=== PATIENT | male | born 1930 | race Caucasian/White ===

== ENCOUNTER 2016-06-23 07:38 | Inpatient (IN) | payer MEDICARE, OTHER ==
[2016-06-23] MEDS ORDERED: IBUPROFEN 800 MG TAB PO STA (08:00)
[2016-06-23] MEDS ORDERED: SODIUM CHLORIDE 0.9% 1,000 ML IV STA (08:00)
[2016-06-23] MEDS ORDERED: SODIUM CHLORIDE 0.9% 500 ML IV STA (08:00)
[2016-06-23] MEDS ORDERED: ACETAMINOPHEN TAB 500 MG TAB PO STA (08:00)
[2016-06-23] MEDS ORDERED: IPRATROPIUM 0.5 MG/2.5 ML NEBU INHALATION STA (08:03)
[2016-06-23] MEDS ORDERED: ALBUTEROL NEBULIZED 2.5 MG/3 ML INHALATION STA (08:03)
--- NOTE | 2016-06-23 08:04 | ED ---
General Adult HPI - General Chief complaint: Fever Stated complaint: SHAKING, VOMITING, COLD Time Seen by Provider: 06/23/16 07:47 Source: patient, family, RN notes reviewed, old records reviewed Mode of arrival: wheelchair Limitations: no limitations - History of Present Illness Initial comments: This is a 86-year-old male ER for evaluation. Patient currently with cough congestion fever. Patient does have significant medical history, history of lung cancer history of lung surgery. The burn shortness of breath started this morning her progressively worsened this morning. Patient hypoxic on initial evaluation. Her shortness of breath. Patient has a recent increased cough and congestion, mild pain, chest pain. No travel history, no sick contacts, no nausea vomiting or diarrhea. - Related Data Home Medications Medication Instructions Recorded Confirmed Omeprazole [PriLOSEC] 20 mg PO AC-BID 11/21/13 06/23/16 glipiZIDE [Glucotrol] 2.5 mg PO TID 11/21/13 06/23/16 Aspirin 81 mg PO DAILY 06/23/16 06/23/16 Budesonide [Pulmicort] 0.5 mg INHALATION RT-BID 06/23/16 06/23/16 Ferrous Sulfate [Feosol] 325 mg PO DAILY 06/23/16 06/23/16 Ipratropium [place] [Atrovent Hfa] 2 puff INHALATION RT-TID 06/23/16 06/23/16 Mirtazapine [Remeron] 7.5 mg PO HS 06/23/16 06/23/16 Multivit-Min/FA/Lycopen/Lutein 1 tab PO DAILY 06/23/16 06/23/16 [Centrum Silver Men Tablet] Saxagliptin HCl [Onglyza] 5 mg PO DAILY 06/23/16 06/23/16 metFORMIN HCL 1,000 mg PO BID 06/23/16 06/23/16 Allergies Allergy/AdvReac Type Severity Reaction Status Date / Time No Known Allergies Allergy Verified 06/23/16 08:26 Review of Systems ROS Statement: Those systems with pertinent positive or pertinent negative responses have been documented in the HPI. ROS Other: All systems not noted in ROS Statement are negative. Past Medical History Past Medical History: Asthma, Cancer, CVA/TIA, Diabetes Mellitus, GERD/Reflux, Hyperlipidemia Additional Past Medical History / Comment(s): lung cancer, hiatal hernia History of Any Multi-Drug Resistant Organisms: None Reported Past Surgical History: Tonsillectomy Additional Past Surgical History / Comment(s): 2/3 left lung removed 2010, hemmoroids; right shoulder surgery Past Anesthesia/Blood Transfusion Reactions: No Reported Reaction Past Psychological History: No Psychological Hx Reported Smoking Status: Former smoker Past Alcohol Use History: Occasional Past Drug Use History: None Reported General Exam Limitations: no limitations General appearance: alert, anxious, in distress, cachectic Head exam: Present: atraumatic, normocephalic, normal inspection Eye exam: Present: normal appearance, PERRL, EOMI. Absent: scleral icterus, conjunctival injection, periorbital swelling ENT exam: Present: normal exam, mucous membranes moist Neck exam: Present: normal inspection. Absent: tenderness, meningismus, lymphadenopathy Respiratory exam: Present: normal lung sounds bilaterally, respiratory distress , wheezes, accessory muscle use, decreased breath sounds, prolonged expiratory. Absent: rales, rhonchi, stridor Cardiovascular Exam: Present: normal rhythm, tachycardia, normal heart sounds. Absent: systolic murmur, diastolic murmur, rubs, gallop, clicks GI/Abdominal exam: Present: soft, normal bowel sounds. Absent: distended, tenderness, guarding, rebound, rigid Extremities exam: Present: normal inspection, full ROM, normal capillary refill. Absent: tenderness, pedal edema, joint swelling, calf tenderness Back exam: Present: normal inspection Neurological exam: Present: alert, oriented X3, CN II-XII intact Psychiatric exam: Present: normal affect, normal mood Skin exam: Present: warm, dry, intact, normal color. Absent: rash Course Vital Signs 06/23/16 06/23/16 06/23/16 07:41 08:15 08:31 Temperature 102.5 F H Pulse Rate 117 H 108 H 115 H Respiratory 16 Rate Blood Pressure 199/136 O2 Sat by Pulse 85 L Oximetry 06/23/16 09:16 Temperature Pulse Rate 118 H Respiratory Rate Blood Pressure O2 Sat by Pulse Oximetry - Reevaluation(s) Reevaluation #1: 06/23/16 10:41 Patient's oxygenation is mildly improved with a little oxygen prolonged breathing treatment EKG Findings - EKG Comments: EKG Findings:: EKG shows sinus tachycardia rate 112, IN 162, QRS 80, QTC 458 Medical Decision Making - Medical Decision Making A 5 mg for evaluation of fever. Weakness. Shows of breath, hypoxia COPD lung CA, patient is breathing treatments, given his COPD hypoxia, supplemental oxygen IV antibiotics for pneumonia. - Lab Data Result diagrams: 06/23/16 08:45 06/23/16 08:45 Lab Results 06/23/16 06/23/16 06/23/16 Range/Units 08:40 08:45 08:45 WBC 11.4 H (3.8-10.6) k/uL RBC 4.76 (4.30-5.90) m/uL Hgb 14.3 (13.0-17.5) gm/dL Hct 43.4 (39.0-53.0) % MCV 91.3 (80.0-100.0) fL MCH 30.1 (25.0-35.0) pg MCHC 32.9 (31.0-37.0) g/dL RDW 14.8 (11.5-15.5) % Plt Count 124 L (150-450) k/uL Neutrophils % 90 % Lymphocytes % 5 % Monocytes % 3 % Eosinophils % 1 % Basophils % 0 % Neutrophils # 10.3 H (1.3-7.7) k/uL Lymphocytes # 0.6 L (1.0-4.8) k/uL Monocytes # 0.3 (0-1.0) k/uL Eosinophils # 0.1 (0-0.7) k/uL Basophils # 0.0 (0-0.2) k/uL PT (9.0-12.0) sec INR (<1.1) APTT (22.0-30.0) sec Sodium (137-145) mmol/L Potassium (3.5-5.1) mmol/L Chloride (98-107) mmol/L Carbon Dioxide (22-30) mmol/L Anion Gap mmol/L BUN (9-20) mg/dL Creatinine (0.66-1.25) mg/dL Est GFR (MDRD) Af Amer (>60 ml/min/1.73 sqM) Est GFR (MDRD) Non-Af (>60 ml/min/1.73 sqM) Glucose (74-99) mg/dL Calcium (8.4-10.2) mg/dL Phosphorus (2.5-4.5) mg/dL Magnesium (1.6-2.3) mg/dL Total Bilirubin (0.2-1.3) mg/dL AST (17-59) U/L ALT (21-72) U/L Alkaline Phosphatase (38-126) U/L Total Creatine Kinase 77 (55-170) U/L CK-MB (CK-2) 1.6 (0.0-2.4) ng/mL CK-MB (CK-2) Rel Index 2.1 Troponin I <0.012 (0.000-0.034) ng/mL NT-Pro-B Natriuret Pep pg/mL Total Protein (6.3-8.2) g/dL Albumin (3.5-5.0) g/dL Urine Color Yellow Urine Appearance Clear (Clear) Urine pH 6.5 (5.0-8.0) Ur Specific [place] 1.011 (1.001-1.035) Urine Protein Negative (Negative) Urine Glucose (UA) 3+ H (Negative) Urine Ketones 1+ H (Negative) Urine Blood Negative (Negative) Urine Nitrite Negative (Negative) Urine Bilirubin Negative (Negative) Urine Urobilinogen <2.0 (<2.0) mg/dL Ur Leukocyte Esterase Negative (Negative) 06/23/16 06/23/16 06/23/16 Range/Units 08:45 08:45 09:42 WBC (3.8-10.6) k/uL RBC (4.30-5.90) m/uL Hgb (13.0-17.5) gm/dL Hct (39.0-53.0) % MCV (80.0-100.0) fL MCH (25.0-35.0) pg MCHC (31.0-37.0) g/dL RDW (11.5-15.5) % Plt Count (150-450) k/uL Neutrophils % % Lymphocytes % % Monocytes % % Eosinophils % % Basophils % % Neutrophils # (1.3-7.7) k/uL Lymphocytes # (1.0-4.8) k/uL Monocytes # (0-1.0) k/uL Eosinophils # (0-0.7) k/uL Basophils # (0-0.2) k/uL PT 10.8 (9.0-12.0) sec INR 1.1 (<1.1) APTT 21.8 L (22.0-30.0) sec Sodium 141 (137-145) mmol/L Potassium 4.6 (3.5-5.1) mmol/L Chloride 104 (98-107) mmol/L Carbon Dioxide 24 (22-30) mmol/L Anion Gap 13 mmol/L BUN 27 H (9-20) mg/dL Creatinine 0.82 (0.66-1.25) mg/dL Est GFR (MDRD) Af Amer >60 (>60 ml/min/1.73 sqM) Est GFR (MDRD) Non-Af >60 (>60 ml/min/1.73 sqM) Glucose 240 H (74-99) mg/dL Calcium 9.5 (8.4-10.2) mg/dL Phosphorus 3.4 (2.5-4.5) mg/dL Magnesium 1.4 L (1.6-2.3) mg/dL Total Bilirubin 0.8 (0.2-1.3) mg/dL AST 22 (17-59) U/L ALT 37 (21-72) U/L Alkaline Phosphatase 86 (38-126) U/L Total Creatine Kinase (55-170) U/L CK-MB (CK-2) (0.0-2.4) ng/mL CK-MB (CK-2) Rel Index Troponin I (0.000-0.034) ng/mL NT-Pro-B Natriuret Pep 375 pg/mL Total Protein 7.7 (6.3-8.2) g/dL Albumin 4.3 (3.5-5.0) g/dL Urine Color Urine Appearance (Clear) Urine pH (5.0-8.0) Ur Specific [place] (1.001-1.035) Urine Protein (Negative) Urine Glucose (UA) (Negative) Urine Ketones (Negative) Urine Blood (Negative) Urine Nitrite (Negative) Urine Bilirubin (Negative) Urine Urobilinogen (<2.0) mg/dL Ur Leukocyte Esterase (Negative) - Radiology Data Radiology results: report reviewed (Chest x-ray positive for pneumonia), image reviewed Critical Care Time Critical Care Time: Yes Total Critical Care Time: 31 Disposition Clinical Impression: Nosocomial pneumonia, Fever, Hypoxia, COPD exacerbation Disposition: ADMITTED IP TO THIS HOSP Condition: Fair Referrals: Jasmin Natarajan MD [Primary Care Provider] - 1-2 days
[2016-06-23] MEDS ORDERED: KETAMINE 10 MG/ML 20 ML VIAL IV ONE (09:04)
[2016-06-23 09:11] LABS: Appearance,Urine Clear (Clear); Bilirubin,Urine Negative (Negative); Glucose,Urine (UA) 3+ (Negative); Ketones,Urine 1+ (Negative); Leukocyte Esterase,Urine Negative (Negative); Nitrite,Urine Negative (Negative); PH, Urine 6.5 (5.0-8.0); Protein,Urine Negative (Negative); Specific Gravity,Urine 1.011 (1.001-1.035); UA Billing (MACRO vs. MICRO) CHEM; Urobilinogen,Urine <2.0 mg/dL (<2.0)
[2016-06-23 09:14] LABS: Basophils % (A) 0 %; CH 29.1; CHCM 32.1; Eosinophils # (A) 0.1 k/uL (0-0.7); Eosinophils % (A) 1 %; HCT 43.4 % (39.0-53.0); HDW 2.47; HGB 14.3 gm/dL (13.0-17.5); Luc # (Auto) 0.05; Luc % (Auto) 0; Lymphocytes # (A) 0.6 k/uL (1.0-4.8); Lymphocytes % (A) 5 %; MCH 30.1 pg (25.0-35.0); MCHC 32.9 g/dL (31.0-37.0); MCV 91.3 fL (80.0-100.0); Mean Platelet Volume 9.9; Monocytes # (A) 0.3 k/uL (0-1.0); Monocytes % (A) 3 %; Neutrophils # (A) 10.3 k/uL (1.3-7.7); Neutrophils % (A) 90 %; RBC 4.76 m/uL (4.30-5.90); RDW 14.8 % (11.5-15.5); WBC 11.4 k/uL (3.8-10.6); WBC (Perox) 12.11
[2016-06-23 09:23] LABS: ALT 37 U/L (21-72); AST 22 U/L (17-59); Alkaline Phosphatase 86 U/L (38-126); Anion Gap 13 mmol/L; Blood Urea Nitrogen 27 mg/dL (9-20); Calcium 9.5 mg/dL (8.4-10.2); Carbon Dioxide 24 mmol/L (22-30); Chloride 104 mmol/L (98-107); Glucose 240 mg/dL (74-99); Magnesium 1.4 mg/dL (1.6-2.3); Non-African American GFR(MDRD) >60 (>60 ml/min/1.73 sqM); Phosphorous 3.4 mg/dL (2.5-4.5); Potassium 4.6 mmol/L (3.5-5.1); Sodium 141 mmol/L (137-145); Total Bilirubin 0.8 mg/dL (0.2-1.3); Total Protein 7.7 g/dL (6.3-8.2)
[2016-06-23 09:47] LABS: Creatine Kinase 77 U/L (55-170)
--- NOTE | 2016-06-23 09:56 | XR ---
EXAMINATION TYPE: XR chest 2V DATE OF EXAM: 06/23/2016 9:32 AM COMPARISON: 07/30/2015 TECHNIQUE: PA and lateral views submitted. HISTORY: Pain FINDINGS: Large hiatal or diaphragmatic hernia noted with stable right basilar infiltrate and small effusion. T here is more focal right perihilar infiltrate. Biapical pleural thickening. No overt failure. Postsur gical changes seen. IMPRESSION: 1. Right-sided areas of infiltrate and small effusion with a large diaphragmatic or hiatal hernia. 2. There is soft tissue fullness in the aortopulmonary window. Area of adenopathy not excluded. Corre late with CT as warranted.
[2016-06-23 10:00] LABS: Creatine Kinase MB 1.6 ng/mL (0.0-2.4); Troponin I <0.012 ng/mL (0.000-0.034)
[2016-06-23 10:10] LABS: INR 1.1 (<1.1); Prothrombin Time 10.8 sec (9.0-12.0)
[2016-06-23 10:32] LABS: Partial Thromboplastin Time 21.8 sec (22.0-30.0)
[2016-06-23] MEDS ORDERED: PNEUMONIA PROTOCOL UTILIZED 1 EACH MISC PO PRN (10:36)
[2016-06-23] MEDS ORDERED: PIPERACILLIN-TAZOBACTAM 3.375 GM in DEXTROSE/WATER 1 50ML.BAG IVPB STA (10:36)
[2016-06-23] MEDS ORDERED: LEVOFLOXACIN 750MG-D5W PMX 750 MG in DEXTROSE/WATER 1 150ML.BAG IVPB STA (10:36)
[2016-06-23 11:36] VITALS: BMI 22.8
[2016-06-23 12:33] LABS: Glucose,Whole Blood 290 mg/dL (75-99)
--- NOTE | 2016-06-23 12:45 | P.HPIM ---
History of Present Illness H&P Date: 06/23/16 Chief Complaint: Right lower lobe pneumonia with pleural effusion. This is an 86-year-old male one of my patient with a previous medical history significant for diabetes mellitus type 2, hyperkalemia, moderate COPD, lung cancer status post partial lobectomy, GERD, patient woke up the today complaining of feeling sick with fever and chills he was feeling fine yesterday , he was feeling chills in the morning and he asked his taken to the ER so she drove him over and the patient had a chest x-ray that showed a right lower lobe infiltrate with right pleural effusion and the patient was admitted to the hospital for right lower lobe pneumonia was started on IV antibiotic and he is to be seen by pulmonary Dr. Turcios. Review of Systems Constitutional: Reports anorexia, Reports fatigue, Reports fever, Reports malaise, Reports sweats, Reports weakness, Reports weight loss, Denies chronic headaches, Denies chronic pain Eyes: denies blurred vision, denies bulging eye, denies decreased vision Ears: bilateral: decreased hearing Ears, nose, mouth and throat: Denies dysphagia, Denies neck lump, Denies sore throat, Denies vertigo Cardiovascular: Denies chest pain, Denies dyspnea on exertion, Denies high blood pressure, Denies rapid heart beat, Denies shortness of breath, Denies syncope Respiratory: Reports cough, Reports cough with sputum, Reports dyspnea, Denies congestion, Denies home oxygen, Denies sleep apnea, Denies snoring, Denies wheezing Gastrointestinal: Denies abdominal pain, Denies bloating, Denies BRBPR, Denies diarrhea, Denies heartburn, Denies hematemesis, Denies melena, Denies nausea, Denies vomiting Genitourinary: Reports nocturia, Denies dysuria, Denies polyuria Musculoskeletal: Reports atrophy, Reports gait dysfunction, Reports low back pain Musculoskeletal: left: ankle pain, ankle stiffness, absent: ankle swelling, elbow pain, elbow stiffness, elbow swelling, foot pain, foot stiffness, foot swelling, hand pain, hand stiffness, hand swelling, hip pain, hip stiffness, hip swelling, knee pain, knee stiffness, knee swelling, shoulder pain, shoulder stiffness, shoulder swelling, wrist pain, wrist stiffness, wrist swelling Integumentary: Denies pruritus, Denies rash Neurological: Denies numbness, Denies weakness Psychiatric: Denies anxiety, Denies depression Endocrine: Denies fatigue, Denies weight change Past Medical History Past Medical History: Asthma, Cancer, COPD, CVA/TIA, Diabetes Mellitus, GERD/ Reflux, Hyperlipidemia, Osteoarthritis (OA) Additional Past Medical History / Comment(s): 2009 L lung cancer with sx, NIDDM type II, TIA in 2012, iron deficiency anemia, athritis bilateral hands/feet, hiatal hernia History of Any Multi-Drug Resistant Organisms: None Reported Past Surgical History: Orthopedic Surgery, Tonsillectomy Additional Past Surgical History / Comment(s): 2/3 left lobectomy 2009-post op incisional infection and had debridements, colonoscopy/benign polypectomy, hemmoroidectomy, right shoulder arthrotomy. Past Anesthesia/Blood Transfusion Reactions: No Reported Reaction Past Psychological History: Depression Additional Psychological History / Comment(s): Pt resides with his spouse. He uses a cane at times. He drives short distances. He is independent. Smoking Status: Former smoker (Patient used to smoke about 2-3 pack every day he smoked for about 30 years patient quit in 05/13/1979.) Past Alcohol Use History: Occasional Additional Past Alcohol Use History / Comment(s): Pt started smoking in 1949 and quit in 1979. Past Drug Use History: None Reported - Past Family History Father Family Medical History: No Reported History (Father at age of 75 from alcohol is in.) Additional Family Medical History / Comment(s): Father at the age of 74yrs. Mother Family Medical History: CVA/TIA (Mother at age of 80 from stroke.) Additional Family Medical History / Comment(s): Mother was healthy and at the age of 80yrs. Sister(s) Family Medical History: Coronary Artery Disease (CAD), Myocardial Infarction ([place] ) (Patient had 2 sisters one of them from CABG the other one from CAD. ) Brother(s) Family Medical History: Neurologic Disorder (Patient has one brother multiple sclerosis.) Daughter(s) Family Medical History: No Reported History (Patient has 3 daughters no major medical problems) Son(s) Family Medical History: Cancer (Patient has one son with prostate cancer per) Medications and Allergies Home Medications Medication Instructions Recorded Confirmed Type Omeprazole [PriLOSEC] 20 mg PO AC-BID 11/21/13 06/23/16 History glipiZIDE [Glucotrol] 2.5 mg PO TID 11/21/13 06/23/16 History Aspirin 81 mg PO DAILY 06/23/16 06/23/16 History Budesonide [Pulmicort] 0.5 mg INHALATION RT-BID 06/23/16 06/23/16 History Ferrous Sulfate [Feosol] 325 mg PO DAILY 06/23/16 06/23/16 History Ipratropium [place] [Atrovent Hfa] 2 puff INHALATION RT-TID 06/23/16 06/23/16 History Mirtazapine [Remeron] 7.5 mg PO HS 06/23/16 06/23/16 History Multivit-Min/FA/Lycopen/Lutein 1 tab PO DAILY 06/23/16 06/23/16 History [Centrum Silver Men Tablet] Saxagliptin HCl [Onglyza] 5 mg PO DAILY 06/23/16 06/23/16 History metFORMIN HCL 1,000 mg PO BID 06/23/16 06/23/16 History Allergies Allergy/AdvReac Type Severity Reaction Status Date / Time No Known Allergies Allergy Verified 06/23/16 08:26 Physical Exam Vitals: Vital Signs Temp Pulse Resp BP Pulse Ox 06/23/16 10:41 101 F H 65 16 144/60 92 L Intake and Output 06/22/16 06/23/16 06/23/16 22:59 06:59 14:59 Other: Voiding Method Toilet Urinal Weight 70.307 kg Patient Weight 06/24/16 06:59 Weight 70.307 kg - Constitutional General appearance: mild distress - EENT Eyes: anicteric sclerae, EOMI, PERRLA, no ptosis, no scleral icterus, normal appearance ENT: hard of hearing, NA/AT, normal oropharynx, no thrush Ears: bilateral: normal - Neck Neck: no lymphadenopathy, normal ROM, no rigidity, no stridor, no thyromegaly Carotids: bilateral: upstroke delayed Thyroid: bilateral: normal size - Respiratory Respiratory: right: dullness, rhonchi, bilateral: prolonged expiration, negative : rales, wheezing - Cardiovascular Rhythm: regular Heart sounds: normal: S1, S2 Abnormal Heart Sounds: systolic murmur, no diastolic murmur, no rub, no S3 Gallop, no S4 Gallop, no click - Gastrointestinal General gastrointestinal: normal bowel sounds, soft, no splenomegaly, no tenderness, no umbilical hernia, no ventral hernia - Integumentary Integumentary: normal, normal turgor - Neurologic Neurologic: CNII-XII intact - Musculoskeletal Musculoskeletal: gait normal, generalized weakness - Psychiatric Psychiatric: A&O x's 3, appropriate affect, intact judgment & insight Results CBC & Chem 7: 06/23/16 08:45 06/23/16 08:45 Labs: Abnormal Lab Results - Last 24 Hours (Table) 06/23/16 Range/Units 12:28 POC Glucose (mg/dL) 290 H (75-99) mg/dL Thrombosis Risk Factor Assmnt - DVT/VTE Prophylaxis DVT/VTE Prophylaxis: Pharmacologic Prophylaxis ordered, Mechanical Prophylaxis ordered - Choose All That Apply Any of the Below Risk Factors Present?: Yes Each Factor Represents 1 point: Abnormal pulmonary function (COPD) Other Risk Factors: Yes Each Risk Factor Represents 3 Points: Age 75 years or older Thrombosis Risk Factor Assessment Total Risk Factor Score: 4 Thrombosis Risk Factor Assessment Level: Moderate Risk Assessment and Plan Plan: Assessment and plan: 1. Right lower lobe pneumonia with right pleural effusion. Start the patient on IV antibiotic in the form of Levaquin 500 mg IV piggyback every 24 hours, sputum culture, blood culture, the last treatment DuoNeb 3 mg nebulization 4 times every day, patient may need to go for computed tomography scan of the chest with contrast for further evaluation after treating the pneumonia for next few days. Pulmonary consultation with Dr. Turcios. 2. Moderate to COPD. Continue treatment as in paragraph #1. 3. Diabetes mellitus type 2. Continue patient on Glucotrol 2.5 mg orally 3 times every day, continue metformin 1000 g orally twice every day, continue Onglyza 5 mg orally once every day. Place the patient on the sliding scale insulin, BGM before each meal and at bedtime. 4. History of lung cancer status post partial resection. She may need to go for a day did computed tomography scan of the chest with contrast. 5. GERD. Continue patient on the Prilosec 20 mg orally twice every day. 6. Hyperlipidemia. Continue low-cholesterol diet. 7. Diaphragmatic hernia. Stable at this point in time. 8. Enlarged prostate. Stable. 9. DVT prophylaxis. Lovenox 40 mg subcutaneously every 24 hours. 10. GI prophylaxis. Continue omeprazole 20 mg orally twice every day. 11. Patient is full code discussed with the patient. 12. Admit to inpatient. Estimate a length of stay 2 midnights.
[2016-06-23] MEDS ORDERED: NON-FORMULARY DRUG (Ipratropium Bromide [Atrovent Hfa] 2 PUFF) INHALATION SCH (13:00)
[2016-06-23] MEDS: SODIUM CHLORIDE 0.9% 1,000 ML IV SCH ×2 (13:30→21:08)
[2016-06-23] MEDS: ASPIRIN 81 MG CHEW PO SCH (13:31)
[2016-06-23] MEDS: LINAGLIPTIN 5 MG TABLET PO SCH (13:31)
[2016-06-23] MEDS: FERROUS SULFATE 325 MG TAB PO SCH (13:31)
[2016-06-23] MEDS: INSULIN LISPRO (humaLOG) 300 UNIT/3 ML VIAL SQ SCH ×3 (13:32→21:20)
[2016-06-23] MEDS: MAGNESIUM SULFATE-D5W PMX 1 GM in DEXTROSE/WATER 1 100ML.BAG IVPB SCH ×2 (13:33→15:13)
[2016-06-23 15:09] LABS: Hemoglobin A1C 7.1 % (4.2-6.1)
[2016-06-23] MEDS: IPRATROPIUM-ALBUTEROL 3 ML NEB INHALATION SCH ×3 (16:01→19:40)
[2016-06-23 17:56] LABS: Glucose,Whole Blood 243 mg/dL (75-99)
--- NOTE | 2016-06-23 17:58 | P.CNPUL ---
History of Present Illness Consult date: 06/23/16 Reason for consult: pneumonia History of present illness: 86-year-old male patient, Hospital as for a suspected right lung pneumonia. I was consulted for this problem. The patient is known to me. He is known to have COPD. He is also known to have lung cancer with a previous left upper lobe resection many years back without evidence of any recurrence. He also has a large intrathoracic hiatal hernia. The patient woke up today and he was having Jeff's and chills and he was feeling sick and feverish. He is a congested cough without any significant sputum production. No pleurisy. No change in mental status. He came into the emergency department where a chest x- ray was done and showed a hiatal hernia in addition to the right lung pneumonia especially involving the right middle lobe and right lower lobe. The patient was started and accommodation of Zosyn and Levaquin. No reported aspiration although the patient is supporting reflux and at times is having difficulties in swallowing. He is diabetic. No travel history. No trauma. No hemoptysis. No pleurisy. No other constitutional symptoms or Weight Loss. Review of Systems No anorexia no fatigue. He reports fever and chills. He reports malaise. He reports sweating. He reports weakness. Denies having any headache. No vision changes. No chest pain. No nausea vomiting or diarrhea. No abdominal pain. No gait dysfunction. No back pain. 12 point review of system was done and the rest of the positive findings are almost above in history of present illness Past Medical History Past Medical History: Asthma, Cancer, COPD, CVA/TIA, Diabetes Mellitus, GERD/ Reflux, Hyperlipidemia, Osteoarthritis (OA) Additional Past Medical History / Comment(s): 2009 L lung cancer with sx, NIDDM type II, TIA in 2012, iron deficiency anemia, athritis bilateral hands/feet, hiatal hernia History of Any Multi-Drug Resistant Organisms: None Reported Past Surgical History: Orthopedic Surgery, Tonsillectomy Additional Past Surgical History / Comment(s): 2/3 left lobectomy 2009-post op incisional infection and had debridements, colonoscopy/benign polypectomy, hemmoroidectomy, right shoulder arthrotomy. Past Anesthesia/Blood Transfusion Reactions: No Reported Reaction Past Psychological History: Depression Additional Psychological History / Comment(s): Pt resides with his spouse. He uses a cane at times. He drives short distances. He is independent. Smoking Status: Former smoker (Patient used to smoke about 2-3 pack every day he smoked for about 30 years patient quit in 05/13/1979.) Past Alcohol Use History: Occasional Additional Past Alcohol Use History / Comment(s): Pt started smoking in 1949 and quit in 1979. Past Drug Use History: None Reported - Past Family History Father Family Medical History: No Reported History (Father at age of 75 from alcohol is in.) Additional Family Medical History / Comment(s): Father at the age of 74yrs. Mother Family Medical History: CVA/TIA (Mother at age of 80 from stroke.) Additional Family Medical History / Comment(s): Mother was healthy and at the age of 80yrs. Sister(s) Family Medical History: Coronary Artery Disease (CAD), Myocardial Infarction (RI ) (Patient had 2 sisters one of them from CABG the other one from CAD. ) Brother(s) Family Medical History: Neurologic Disorder (Patient has one brother multiple sclerosis.) Daughter(s) Family Medical History: No Reported History (Patient has 3 daughters no major medical problems) Son(s) Family Medical History: Cancer (Patient has one son with prostate cancer per) Medications and Allergies Home Medications Medication Instructions Recorded Confirmed Type Omeprazole [PriLOSEC] 20 mg PO AC-BID 11/21/13 06/23/16 History glipiZIDE [Glucotrol] 2.5 mg PO TID 11/21/13 06/23/16 History Aspirin 81 mg PO DAILY 06/23/16 06/23/16 History Budesonide [Pulmicort] 0.5 mg INHALATION RT-BID 06/23/16 06/23/16 History Ferrous Sulfate [Feosol] 325 mg PO DAILY 06/23/16 06/23/16 History Ipratropium Milligan [Atrovent Hfa] 2 puff INHALATION RT-TID 06/23/16 06/23/16 History Mirtazapine [Remeron] 7.5 mg PO HS 06/23/16 06/23/16 History Multivit-Min/FA/Lycopen/Lutein 1 tab PO DAILY 06/23/16 06/23/16 History [Centrum Silver Men Tablet] Saxagliptin HCl [Onglyza] 5 mg PO DAILY 06/23/16 06/23/16 History metFORMIN HCL 1,000 mg PO BID 06/23/16 06/23/16 History Allergies Allergy/AdvReac Type Severity Reaction Status Date / Time No Known Allergies Allergy Verified 06/23/16 08:26 Physical Exam Vitals: Vital Signs Temp Pulse Pulse Resp BP BP Pulse Ox 06/23/16 16:15 80 06/23/16 16:01 84 06/23/16 14:56 96.2 F L 99 18 110/57 96 06/23/16 10:41 101 F H 65 16 144/60 92 L Intake and Output 06/23/16 06/23/16 06/23/16 06:59 14:59 22:59 Other: Voiding Method Toilet Toilet Urinal Urinal Weight 70.307 kg Patient Weight 06/24/16 06:59 Weight 70.307 kg Head exam was generally normal. There was no scleral icterus or corneal arcus. Mucous membranes were moist.Neck was supple and without jugular venous distension, thyromegaly, or carotid bruits. Carotids were easily palpable bilaterally. There was no adenopathy. Lung sounds are diminished in the right lung base along with some limited crackles in the right basal area.Cardiac exam revealed the PMI to be normally situated and sized. The rhythm was regular and no extrasystoles were noted during several minutes of auscultation. The first and second heart sounds were normal and physiologic splitting of the second heart sound was noted. There were no murmurs, rubs, clicks, or gallops.Abdominal exam revealed normal bowel sounds. The abdomen was soft, non- tender, and without masses, organomegaly, or appreciable enlargement of the abdominal aorta.Examination of the extremities revealed easily palpable radial, femoral and pedal pulses. There was no cyanosis, clubbing or edema. Results - Laboratory Findings CBC and BMP: 06/23/16 08:45 06/23/16 08:45 PT/INR, D-dimer PT 10.8 sec (9.0-12.0) 06/23/16 09:42 INR 1.1 (<1.1) 06/23/16 09:42 Abnormal lab findings: Abnormal Labs 06/23/16 12:28 POC Glucose (mg/dL) 290 H - Diagnostic Findings Chest x-ray: image reviewed Assessment and Plan Plan: Assessment 1 Right lung pneumonia involving the right lower lobe and the right middle lobe. Rule out aspiration pneumonia. Currently on accommodation of Zosyn and Levaquin. The patient has a large intrathoracic hiatal hernia and at times is having difficulties with swallowing and reflux. As such was covered by a combination of Zosyn and Levaquin. Antibiotic coverage is appropriate at this point. 2 COPD 3 lung cancer with a previous left upper lobe resection 4 diabetes mellitus type 2 5 hyperlipidemia 6 BPH Plan Agree on Zosyn and Levaquin. Repeat chest x-ray with next 24-48 hours. Aspiration precautions. This will be also prudent to obtain a swallow evaluation to make sure the patient does not have an increased risk of aspiration. Follow-up the case along with the medical group.
[2016-06-23] MEDS: PANTOPRAZOLE 40 MG TABLET PO SCH (18:15)
[2016-06-23] MEDS: BUDESONIDE 0.5 MG/2 ML NEBU INHALATION SCH (19:40)
[2016-06-23] MEDS: PIPERACILLIN-TAZOBACTAM 3.375 GM in DEXTROSE/WATER 1 50ML.BAG IVPB SCH (21:19)
[2016-06-23] MEDS: MIRTAZAPINE 15 MG TAB PO SCH (21:21)
[2016-06-23] MEDS: metFORMIN 500 MG TAB PO SCH (21:21)
[2016-06-23 21:29] LABS: Glucose,Whole Blood 109 mg/dL (75-99)
[2016-06-24] MEDS: PIPERACILLIN-TAZOBACTAM 3.375 GM in DEXTROSE/WATER 1 50ML.BAG IVPB SCH ×3 (04:13→20:11)
[2016-06-24] MEDS: SODIUM CHLORIDE 0.9% 1,000 ML IV SCH ×2 (06:37→17:18)
[2016-06-24] MEDS: BUDESONIDE 0.5 MG/2 ML NEBU INHALATION SCH ×2 (07:39→19:05)
[2016-06-24] MEDS: IPRATROPIUM-ALBUTEROL 3 ML NEB INHALATION SCH ×4 (07:39→19:05)
[2016-06-24 07:45] LABS: Glucose,Whole Blood 131 mg/dL (75-99)
[2016-06-24] MEDS: INSULIN LISPRO (humaLOG) 300 UNIT/3 ML VIAL SQ SCH ×4 (08:30→21:49)
[2016-06-24] MEDS: ASPIRIN 81 MG CHEW PO SCH (08:30)
[2016-06-24] MEDS: PANTOPRAZOLE 40 MG TABLET PO SCH ×2 (08:31→17:18)
[2016-06-24] MEDS: ENOXAPARIN 40 MG/0.4 ML SYRINGE SQ SCH (08:31)
[2016-06-24] MEDS: metFORMIN 500 MG TAB PO SCH ×2 (08:32→21:48)
[2016-06-24] MEDS: LINAGLIPTIN 5 MG TABLET PO SCH (08:32)
[2016-06-24 08:54] LABS: CH 29.1; HCT 36.8 % (39.0-53.0); HDW 2.37; HGB 11.9 gm/dL (13.0-17.5); MCH 29.4 pg (25.0-35.0); MCHC 32.2 g/dL (31.0-37.0); MCV 91.4 fL (80.0-100.0); Mean Platelet Volume 9.6; RBC 4.03 m/uL (4.30-5.90); RDW 14.9 % (11.5-15.5); WBC 11.6 k/uL (3.8-10.6)
[2016-06-24 08:57] LABS: Anion Gap 8 mmol/L; Blood Urea Nitrogen 19 mg/dL (9-20); Calcium 8.9 mg/dL (8.4-10.2); Carbon Dioxide 28 mmol/L (22-30); Chloride 104 mmol/L (98-107); Glucose 146 mg/dL (74-99); Magnesium 1.8 mg/dL (1.6-2.3); Non-African American GFR(MDRD) >60 (>60 ml/min/1.73 sqM); Potassium 4.1 mmol/L (3.5-5.1); Sodium 140 mmol/L (137-145)
[2016-06-24] MEDS ORDERED: FAMOTIDINE 20 MG TAB PO SCH (09:00)
[2016-06-24] MEDS: LEVOFLOXACIN 750MG-D5W PMX 750 MG in DEXTROSE/WATER 1 150ML.BAG IVPB SCH (09:36)
--- NOTE | 2016-06-24 11:00 | XR ---
EXAMINATION TYPE: XR chest 2V DATE OF EXAM: 06/24/2016 10:55 AM COMPARISON: Chest x-ray from yesterday. HISTORY: Pneumonia per order. TECHNIQUE: Frontal and lateral views of the chest are obtained. FINDINGS: Large hiatal hernia is redemonstrated extending to right lung base. There is chronic parenc hymal change with right basilar atelectasis and/or infiltrate and small right pleural effusion all re demonstrated. Left lung remains clear. Punctate density left lateral lung could reflect foreign body or clip is stable. The cardiac silhouette size is within normal limits with atherosclerotic thoracic aorta. Surgical clips left hilar region are redemonstrated. The osseous structures are intact. IMPRESSION: Overall stable findings, large hiatal hernia with small right pleural effusion and right lower lung atelectasis and/or infiltrate all redemonstrated. No new infiltrate is seen.
[2016-06-24 11:44] LABS: Glucose,Whole Blood 152 mg/dL (75-99)
[2016-06-24] MEDS: FERROUS SULFATE 325 MG TAB PO SCH (12:40)
[2016-06-24] MEDS: MULTIVITAMINS, THERA 1 EACH TAB PO SCH (12:40)
--- NOTE | 2016-06-24 13:05 | P.PN ---
Subjective 86-year-old male patient, Hospital as for a suspected right lung pneumonia. I was consulted for this problem. The patient is known to me. He is known to have COPD. He is also known to have lung cancer with a previous left upper lobe resection many years back without evidence of any recurrence. He also has a large intrathoracic hiatal hernia. The patient woke up today and he was having chills and he was feeling sick and feverish. He is a congested cough without any significant sputum production. No pleurisy. No change in mental status. He came into the emergency department where a chest x-ray was done and showed a hiatal hernia in addition to the right lung pneumonia especially involving the right middle lobe and right lower lobe. The patient was started and accommodation of Zosyn and Levaquin. No reported aspiration although the patient is supporting reflux and at times is having difficulties in swallowing. He is diabetic. No travel history. No trauma. No hemoptysis. No pleurisy. No other constitutional symptoms or Weight Loss On the patient is breathing easier and is less short of breath. No reported chills. No fever. Cough and chest congestion is improved. No chest pain. No nausea or vomiting. No change in mental status. No other complaints otherwise for now. Maze hemodynamically stable and he is resting comfortably in bed. Objective - Vital Signs Vital signs: Vital Signs Temp 97.3 F L 06/24/16 07:00 Pulse 83 06/24/16 08:00 Resp 22 06/24/16 08:00 BP 132/77 06/24/16 07:00 Pulse Ox 97 06/24/16 07:40 Intake & Output 06/23/16 06/24/16 06/24/16 18:59 06:59 18:59 Intake Total 300 100 Output Total 450 Balance -150 100 Weight 70.307 kg 70.307 kg Intake: Oral 300 100 Output: Urine 450 Other: Voiding Method Toilet Toilet Urinal Urinal # Voids 2 - Exam Head exam was generally normal. There was no scleral icterus or corneal arcus. Mucous membranes were moist.Neck was supple and without jugular venous distension, thyromegaly, or carotid bruits. Carotids were easily palpable bilaterally. There was no adenopathy. Lung sounds are diminished in the right lung base along with some limited crackles in the right basal area.Cardiac exam revealed the PMI to be normally situated and sized. The rhythm was regular and no extrasystoles were noted during several minutes of auscultation. The first and second heart sounds were normal and physiologic splitting of the second heart sound was noted. There were no murmurs, rubs, clicks, or gallops.Abdominal exam revealed normal bowel sounds. The abdomen was soft, non- tender, and without masses, organomegaly, or appreciable enlargement of the abdominal aorta.Examination of the extremities revealed easily palpable radial, femoral and pedal pulses. There was no cyanosis, clubbing or edema. - Labs CBC & Chem 7: 06/24/16 08:12 06/24/16 08:12 Labs: Abnormal Lab Results - Last 24 Hours (Table) 06/23/16 06/23/16 06/24/16 Range/Units 17:30 21:19 07:41 WBC (3.8-10.6) k/uL RBC (4.30-5.90) m/uL Hgb (13.0-17.5) gm/dL Hct (39.0-53.0) % Plt Count (150-450) k/uL Glucose (74-99) mg/dL POC Glucose (mg/dL) 243 H 109 H 131 H (75-99) mg/dL 06/24/16 06/24/16 06/24/16 Range/Units 08:12 08:12 11:42 WBC 11.6 H (3.8-10.6) k/uL RBC 4.03 L (4.30-5.90) m/uL Hgb 11.9 L (13.0-17.5) gm/dL Hct 36.8 L (39.0-53.0) % Plt Count 113 L (150-450) k/uL Glucose 146 H (74-99) mg/dL POC Glucose (mg/dL) 152 H (75-99) mg/dL Microbiology - Last 24 Hours (Table) 06/23/16 11:05 Gram Stain - Preliminary Sputum Sputum Culture - Preliminary Presumptive Staph aureus Assessment and Plan Plan: Assessment 1 Right lung pneumonia involving the right lower lobe and the right middle lobe. Rule out aspiration pneumonia. Currently on accommodation of Zosyn and Levaquin. The patient has a large intrathoracic hiatal hernia and at times is having difficulties with swallowing and reflux. As such was covered by a combination of Zosyn and Levaquin. Antibiotic coverage is appropriate at this point. 2 COPD 3 lung cancer with a previous left upper lobe resection 4 diabetes mellitus type 2 5 hyperlipidemia 6 BPH Plan Continue same treatment. Today's x-ray is showing stable right lower lobe pulmonary infiltrates/atelectasis and there is no new infiltrate seen. Aspiration precautions. May switch this patient to Augmentin within next 24 hours. We'll follow
--- NOTE | 2016-06-24 15:27 | P.PN ---
Subjective This is an 86-year-old male one of my patient with a previous medical history significant for diabetes mellitus type 2, hyperkalemia, moderate COPD, lung cancer status post partial lobectomy, GERD, patient woke up the today complaining of feeling sick with fever and chills he was feeling fine yesterday , he was feeling chills in the morning and he asked his taken to the ER so she drove him over and the patient had a chest x-ray that showed a right lower lobe infiltrate with right pleural effusion and the patient was admitted to the hospital for right lower lobe pneumonia was started on IV antibiotic and he is to be seen by pulmonary Dr. Turcios. 06/24: Patient's doing at bedside, patient notes discharge her to meet products, less short of breath and some cough no fever no chills patient consult was made with modified barium swallow eval, home O2 needs to be addressed for requirements prior to discharge, Objective - Vital Signs Vital signs: Vital Signs Temp 97.3 F L 06/24/16 07:00 Pulse 83 06/24/16 08:00 Resp 22 06/24/16 08:00 BP 132/77 06/24/16 07:00 Pulse Ox 97 06/24/16 07:40 Intake & Output 06/23/16 06/24/16 06/24/16 18:59 06:59 18:59 Intake Total 300 100 Output Total 450 Balance -150 100 Weight 70.307 kg 70.307 kg Intake: Oral 300 100 Output: Urine 450 Other: Voiding Method Toilet Toilet Urinal Urinal # Voids 2 - Constitutional General appearance: Present: cooperative, no acute distress - EENT Eyes: Present: anicteric sclerae, PERRLA, dentition normal, normal appearance ENT: Present: hearing grossly normal, normal oropharynx - Neck Neck: Present: normal ROM. Absent: lymphadenopathy, other, rigidity, stridor, thyromegaly - Respiratory Respiratory: bilateral: CTA, diminished, negative: dullness, rales, rhonchi, wheezing - Cardiovascular Rhythm: regular Heart sounds: normal: S1, S2 Abnormal Heart Sounds: Absent: systolic murmur, diastolic murmur, rub, S3 Gallop , S4 Gallop, click, other - Gastrointestinal General gastrointestinal: Present: normal bowel sounds, soft - Neurologic Neurologic: Present: CNII-XII intact - Musculoskeletal Musculoskeletal: Present: strength equal bilaterally - Psychiatric Psychiatric: Present: A&O x's 3, appropriate affect, intact judgment & insight - Labs CBC & Chem 7: 06/24/16 08:12 06/24/16 08:12 Labs: Abnormal Lab Results - Last 24 Hours (Table) 06/23/16 06/23/16 06/24/16 Range/Units 17:30 21:19 07:41 WBC (3.8-10.6) k/uL RBC (4.30-5.90) m/uL Hgb (13.0-17.5) gm/dL Hct (39.0-53.0) % Plt Count (150-450) k/uL Glucose (74-99) mg/dL POC Glucose (mg/dL) 243 H 109 H 131 H (75-99) mg/dL 06/24/16 06/24/16 06/24/16 Range/Units 08:12 08:12 11:42 WBC 11.6 H (3.8-10.6) k/uL RBC 4.03 L (4.30-5.90) m/uL Hgb 11.9 L (13.0-17.5) gm/dL Hct 36.8 L (39.0-53.0) % Plt Count 113 L (150-450) k/uL Glucose 146 H (74-99) mg/dL POC Glucose (mg/dL) 152 H (75-99) mg/dL Microbiology - Last 24 Hours (Table) 06/23/16 11:05 Gram Stain - Preliminary Sputum Sputum Culture - Preliminary Presumptive Staph aureus Assessment and Plan Plan: 1. Right lower lobe pneumonia with right pleural effusion. Start the patient on IV antibiotic in the form of Zosyn and Levaquin 500 mg IV piggyback every 24 hours, sputum culture, blood culture, the last treatment DuoNeb 3 mg nebulization 4 times every day, patient may need to go for computed tomography scan of the chest with contrast for further evaluation after treating the pneumonia for next few days. Pulmonary consultation with Dr. Turcios. Reji modified barium swallow eval with speech evaluation, aspiration precautions continue Pulmicort DuoNeb 2. Moderate to COPD. Continue treatment as in paragraph #1. 3. Diabetes mellitus type 2. Continue patient on Glucotrol 2.5 mg orally 3 times every day, continue metformin 1000 g orally twice every day, continue Onglyza 5 mg orally once every day. Place the patient on the sliding scale insulin, BGM before each meal and at bedtime. 4. History of lung cancer status post partial resection. Continue Remeron for anorexia 5. GERD. Continue patient on the Prilosec 20 mg orally twice every day. 6. Hyperlipidemia. Continue low-cholesterol diet. 7. Diaphragmatic hernia. Stable at this point in time. 8. Enlarged prostate. Stable. 9. DVT prophylaxis. Lovenox 40 mg subcutaneously every 24 hours. An MORALES hose 10. GI prophylaxis. Continue omeprazole 20 mg orally twice every day. 11. Patient is full code discussed with the patient. 12. Admit to inpatient. Estimate a length of stay 2 midnights.
[2016-06-24 17:17] LABS: Glucose,Whole Blood 106 mg/dL (75-99)
[2016-06-24 21:17] LABS: Glucose,Whole Blood 154 mg/dL (75-99)
[2016-06-24] MEDS: MIRTAZAPINE 15 MG TAB PO SCH (21:48)
[2016-06-25] MEDS: SODIUM CHLORIDE 0.9% 1,000 ML IV SCH ×3 (03:49→22:00)
[2016-06-25] MEDS: PIPERACILLIN-TAZOBACTAM 3.375 GM in DEXTROSE/WATER 1 50ML.BAG IVPB SCH ×2 (03:49→12:11)
[2016-06-25] MEDS: BUDESONIDE 0.5 MG/2 ML NEBU INHALATION SCH ×2 (07:40→20:05)
[2016-06-25] MEDS: IPRATROPIUM-ALBUTEROL 3 ML NEB INHALATION SCH ×4 (07:40→20:05)
[2016-06-25 07:42] LABS: Glucose,Whole Blood 104 mg/dL (75-99)
[2016-06-25] MEDS: INSULIN LISPRO (humaLOG) 300 UNIT/3 ML VIAL SQ SCH ×4 (07:56→21:48)
[2016-06-25] MEDS: PANTOPRAZOLE 40 MG TABLET PO SCH ×2 (07:58→18:06)
[2016-06-25] MEDS: metFORMIN 500 MG TAB PO SCH ×2 (07:58→21:47)
[2016-06-25] MEDS: LINAGLIPTIN 5 MG TABLET PO SCH (07:58)
[2016-06-25] MEDS: ASPIRIN 81 MG CHEW PO SCH (07:58)
[2016-06-25] MEDS: ENOXAPARIN 40 MG/0.4 ML SYRINGE SQ SCH (07:58)
[2016-06-25 09:38] LABS: Basophils % (A) 0 %; CH 29.5; Eosinophils # (A) 0.2 k/uL (0-0.7); Eosinophils % (A) 2 %; HCT 36.4 % (39.0-53.0); HDW 2.45; HGB 12.1 gm/dL (13.0-17.5); Luc # (Auto) 0.16; Luc % (Auto) 2; Lymphocytes # (A) 0.8 k/uL (1.0-4.8); Lymphocytes % (A) 8 %; MCHC 33.4 g/dL (31.0-37.0); MCV 89.9 fL (80.0-100.0); Mean Platelet Volume 9.4; Monocytes # (A) 0.5 k/uL (0-1.0); Monocytes % (A) 5 %; Neutrophils # (A) 7.7 k/uL (1.3-7.7); Neutrophils % (A) 83 %; RBC 4.05 m/uL (4.30-5.90); RDW 14.6 % (11.5-15.5); WBC 9.3 k/uL (3.8-10.6); WBC (Perox) 9.12
[2016-06-25 10:20] LABS: Anion Gap 9 mmol/L; Blood Urea Nitrogen 12 mg/dL (9-20); Calcium 8.9 mg/dL (8.4-10.2); Carbon Dioxide 25 mmol/L (22-30); Chloride 105 mmol/L (98-107); Glucose 143 mg/dL (74-99); Non-African American GFR(MDRD) >60 (>60 ml/min/1.73 sqM); Potassium 3.7 mmol/L (3.5-5.1); Sodium 139 mmol/L (137-145)
[2016-06-25] MEDS: LEVOFLOXACIN 750MG-D5W PMX 750 MG in DEXTROSE/WATER 1 150ML.BAG IVPB SCH (10:53)
[2016-06-25 12:33] LABS: Glucose,Whole Blood 114 mg/dL (75-99)
[2016-06-25] MEDS: MULTIVITAMINS, THERA 1 EACH TAB PO SCH (13:14)
[2016-06-25] MEDS: AMOXIC-POT CLAV 875-125MG 1 EACH TAB PO SCH ×2 (13:14→21:47)
[2016-06-25] MEDS: SULFAMETHOX-TMP 800-160MG 1 EACH TAB PO SCH ×2 (13:14→21:47)
[2016-06-25] MEDS: FERROUS SULFATE 325 MG TAB PO SCH (13:14)
--- NOTE | 2016-06-25 13:55 | P.PN ---
Subjective 86-year-old male patient, Hospital as for a suspected right lung pneumonia. I was consulted for this problem. The patient is known to me. He is known to have COPD. He is also known to have lung cancer with a previous left upper lobe resection many years back without evidence of any recurrence. He also has a large intrathoracic hiatal hernia. The patient woke up today and he was having chills and he was feeling sick and feverish. He is a congested cough without any significant sputum production. No pleurisy. No change in mental status. He came into the emergency department where a chest x-ray was done and showed a hiatal hernia in addition to the right lung pneumonia especially involving the right middle lobe and right lower lobe. The patient was started and accommodation of Zosyn and Levaquin. No reported aspiration although the patient is supporting reflux and at times is having difficulties in swallowing. He is diabetic. No travel history. No trauma. No hemoptysis. No pleurisy. No other constitutional symptoms or Weight Loss On the patient is breathing easier and is less short of breath. No reported chills. No fever. Cough and chest congestion is improved. No chest pain. No nausea or vomiting. No change in mental status. No other complaints otherwise for now. Maze hemodynamically stable and he is resting comfortably in bed. On 06/25/2016 the patient is doing well and has no specific complaints. Sputum culture came back positive for MRSA. Clinically however the patient is improved and the patient was receiving a combination of Zosyn and Levaquin. A swallow evaluation will be done tomorrow. No fever. No chills. Chest exit from yesterday was noted and reviewed. Objective - Vital Signs Vital signs: Vital Signs Temp 97.6 F 06/25/16 07:00 Pulse 84 06/25/16 11:30 Resp 16 06/25/16 07:00 BP 144/78 06/25/16 07:00 Pulse Ox 93 L 06/25/16 07:41 Intake & Output 06/24/16 06/25/16 06/25/16 18:59 06:59 18:59 Intake Total 100 200 200 Output Total 800 550 Balance -700 -350 200 Weight 70.307 kg Intake: Oral 100 200 200 Output: Urine 800 550 Other: Voiding Method Toilet Urinal # Voids 2 - Exam Head exam was generally normal. There was no scleral icterus or corneal arcus. Mucous membranes were moist.Neck was supple and without jugular venous distension, thyromegaly, or carotid bruits. Carotids were easily palpable bilaterally. There was no adenopathy. Lung sounds are diminished in the right lung base along with some limited crackles in the right basal area.Cardiac exam revealed the PMI to be normally situated and sized. The rhythm was regular and no extrasystoles were noted during several minutes of auscultation. The first and second heart sounds were normal and physiologic splitting of the second heart sound was noted. There were no murmurs, rubs, clicks, or gallops.Abdominal exam revealed normal bowel sounds. The abdomen was soft, non- tender, and without masses, organomegaly, or appreciable enlargement of the abdominal aorta.Examination of the extremities revealed easily palpable radial, femoral and pedal pulses. There was no cyanosis, clubbing or edema. - Labs CBC & Chem 7: 06/25/16 09:10 06/25/16 09:10 Labs: Abnormal Lab Results - Last 24 Hours (Table) 06/24/16 06/24/16 06/25/16 Range/Units 17:10 21:01 07:26 RBC (4.30-5.90) m/uL Hgb (13.0-17.5) gm/dL Hct (39.0-53.0) % Plt Count (150-450) k/uL Lymphocytes # (1.0-4.8) k/uL Glucose (74-99) mg/dL POC Glucose (mg/dL) 106 H 154 H 104 H (75-99) mg/dL 06/25/16 06/25/16 06/25/16 Range/Units 09:10 09:10 12:27 RBC 4.05 L (4.30-5.90) m/uL Hgb 12.1 L (13.0-17.5) gm/dL Hct 36.4 L (39.0-53.0) % Plt Count 115 L (150-450) k/uL Lymphocytes # 0.8 L (1.0-4.8) k/uL Glucose 143 H (74-99) mg/dL POC Glucose (mg/dL) 114 H (75-99) mg/dL Microbiology - Last 24 Hours (Table) 06/23/16 11:05 Gram Stain - Final Sputum Sputum Culture - Final Methicillin resist S. aureus Assessment and Plan Plan: Assessment 1 Right lung pneumonia involving the right lower lobe and the right middle lobe. Rule out aspiration pneumonia. Currently on accommodation of Zosyn and Levaquin. The patient has a large intrathoracic hiatal hernia and at times is having difficulties with swallowing and reflux. As such was covered by a combination of Zosyn and Levaquin. On 06/25/2016, The patient is clinically improved on a combination of Zosyn and Levaquin. The patient grew MRSA in the sputum. 2 COPD 3 lung cancer with a previous left upper lobe resection 4 diabetes mellitus type 2 5 hyperlipidemia 6 BPH Plan Patient antibiotics to a combination of Augmentin 875 mg by mouth twice a day for the next one week and Bactrim double strength 1 tablet twice a day for the next one week. Swallow evaluation. Aspiration precautions. Discharge planning is in progress.
--- NOTE | 2016-06-25 16:48 | P.PN ---
Subjective This is an 86-year-old male one of my patient with a previous medical history significant for diabetes mellitus type 2, hyperkalemia, moderate COPD, lung cancer status post partial lobectomy, GERD, patient woke up the today complaining of feeling sick with fever and chills he was feeling fine yesterday , he was feeling chills in the morning and he asked his taken to the ER so she drove him over and the patient had a chest x-ray that showed a right lower lobe infiltrate with right pleural effusion and the patient was admitted to the hospital for right lower lobe pneumonia was started on IV antibiotic and he is to be seen by pulmonary Dr. Turcios. 06/24: Patient's doing at bedside, patient notes discharge her to meat products, less short of breath and some cough no fever no chills patient consult was made with modified barium swallow eval, home O2 needs to be addressed for requirements prior to discharge, 06/25: Sputum culture is growing MRSA, and ibex readjusted to Bactrim and Augmentin by pulmonary, patient has no new complaints today, awaiting modified barium swallow and speech evaluation, no new aspirate events of fever no chills Objective - Vital Signs Vital signs: Vital Signs Temp 97.5 F L 06/25/16 14:51 Pulse 92 06/25/16 16:14 Resp 16 06/25/16 14:51 BP 139/75 06/25/16 14:51 Pulse Ox 95 06/25/16 16:04 Intake & Output 06/24/16 06/25/16 06/25/16 18:59 06:59 18:59 Intake Total 100 200 520 Output Total 800 550 Balance -700 -350 520 Weight 70.307 kg Intake: Oral 100 200 520 Output: Urine 800 550 Other: Voiding Method Toilet Urinal # Voids 2 600 - Constitutional General appearance: Present: cooperative, no acute distress - EENT Eyes: Present: anicteric sclerae, EOMI, PERRLA, dentition normal, normal appearance ENT: Present: hearing grossly normal, NA/AT, normal oropharynx - Neck Neck: Present: normal ROM - Respiratory Respiratory: bilateral: CTA, negative: dullness, rales, rhonchi, wheezing - Cardiovascular Rhythm: regular Abnormal Heart Sounds: Absent: systolic murmur, diastolic murmur, rub, S3 Gallop , S4 Gallop, click, other - Gastrointestinal General gastrointestinal: Present: normal bowel sounds, soft - Integumentary Integumentary: Present: normal, normal turgor - Neurologic Neurologic: Present: CNII-XII intact - Musculoskeletal Musculoskeletal: Present: gait normal, strength equal bilaterally - Psychiatric Psychiatric: Present: A&O x's 3, appropriate affect, intact judgment & insight - Labs CBC & Chem 7: 06/25/16 09:10 06/25/16 09:10 Labs: Abnormal Lab Results - Last 24 Hours (Table) 06/24/16 06/24/16 06/25/16 Range/Units 17:10 21:01 07:26 RBC (4.30-5.90) m/uL Hgb (13.0-17.5) gm/dL Hct (39.0-53.0) % Plt Count (150-450) k/uL Lymphocytes # (1.0-4.8) k/uL Glucose (74-99) mg/dL POC Glucose (mg/dL) 106 H 154 H 104 H (75-99) mg/dL 06/25/16 06/25/16 06/25/16 Range/Units 09:10 09:10 12:27 RBC 4.05 L (4.30-5.90) m/uL Hgb 12.1 L (13.0-17.5) gm/dL Hct 36.4 L (39.0-53.0) % Plt Count 115 L (150-450) k/uL Lymphocytes # 0.8 L (1.0-4.8) k/uL Glucose 143 H (74-99) mg/dL POC Glucose (mg/dL) 114 H (75-99) mg/dL Microbiology - Last 24 Hours (Table) 06/23/16 11:05 Gram Stain - Final Sputum Sputum Culture - Final Methicillin resist S. aureus Assessment and Plan Plan: 1. MRSA Right lower lobe pneumonia with right pleural effusion. Start the patient on IV antibiotic in the form of Zosyn and Levaquin 500 mg IV piggyback every 24 hours, switched to oral Augmentin and Bactrim pulmonary following closely, sputum culture shows MRSA,, blood culture negative, DuoNeb 3 mg nebulization 4 times every day, patient may need to go for computed tomography scan of the chest with contrast for further evaluation after treating the pneumonia for next few days. Pulmonary consultation with Dr. Turcios. Reji modified barium swallow eval with speech evaluation, aspiration precautions continue Pulmicort DuoNeb 2. Moderate to COPD. Continue treatment as in paragraph #1. 3. Diabetes mellitus type 2. Continue patient on Glucotrol 2.5 mg orally 3 times every day, continue metformin 1000 g orally twice every day, continue Onglyza 5 mg orally once every day. Place the patient on the sliding scale insulin, BGM before each meal and at bedtime. 4. History of lung cancer status post partial resection. Continue Remeron for anorexia 5. GERD. Continue patient on the Prilosec 20 mg orally twice every day. 6. Hyperlipidemia. Continue low-cholesterol diet. 7. Diaphragmatic hernia. Stable at this point in time. 8. Enlarged prostate. Stable. 9. DVT prophylaxis. Lovenox 40 mg subcutaneously every 24 hours. An MORALES hose 10. GI prophylaxis. Continue omeprazole 20 mg orally twice every day. 11. Patient is full code discussed with the patient. 12. Admit to inpatient. Estimate a length of stay 2 midnights.
[2016-06-25 17:14] LABS: Glucose,Whole Blood 77 mg/dL (75-99)
[2016-06-25 21:47] LABS: Glucose,Whole Blood 170 mg/dL (75-99)
[2016-06-25] MEDS: MIRTAZAPINE 15 MG TAB PO SCH (21:47)
[2016-06-26 04:57] LABS: Mycoplasma IgG Antibody (EIA) 1.37 INDEX (<=0.90); Mycoplasma IgM Antibody 0.17 INDEX (<=0.90)
[2016-06-26] MEDS: SODIUM CHLORIDE 0.9% 1,000 ML IV SCH ×2 (05:11→17:16)
[2016-06-26 07:32] LABS: Glucose,Whole Blood 107 mg/dL (75-99)
[2016-06-26] MEDS: INSULIN LISPRO (humaLOG) 300 UNIT/3 ML VIAL SQ SCH ×4 (08:02→20:41)
[2016-06-26] MEDS: IPRATROPIUM-ALBUTEROL 3 ML NEB INHALATION SCH ×4 (08:04→20:10)
[2016-06-26] MEDS: BUDESONIDE 0.5 MG/2 ML NEBU INHALATION SCH ×2 (08:04→20:10)
[2016-06-26] MEDS: PANTOPRAZOLE 40 MG TABLET PO SCH ×2 (08:44→17:16)
[2016-06-26] MEDS: AMOXIC-POT CLAV 875-125MG 1 EACH TAB PO SCH ×2 (08:44→20:40)
[2016-06-26] MEDS: ASPIRIN 81 MG CHEW PO SCH (08:45)
[2016-06-26] MEDS: ENOXAPARIN 40 MG/0.4 ML SYRINGE SQ SCH (08:45)
[2016-06-26] MEDS: metFORMIN 500 MG TAB PO SCH ×2 (08:45→20:41)
[2016-06-26] MEDS: SULFAMETHOX-TMP 800-160MG 1 EACH TAB PO SCH ×2 (08:45→20:41)
[2016-06-26] MEDS: LINAGLIPTIN 5 MG TABLET PO SCH (08:45)
[2016-06-26] MEDS ORDERED: LEVOFLOXACIN 750 MG TAB PO SCH (09:00)
--- NOTE | 2016-06-26 10:05 | FL ---
EXAMINATION TYPE: FL barium swallow w video DATE OF EXAM: 06/26/2016 9:57 AM MODIFIED SWALLOW / DEGLUTITION STUDY CLINICAL HISTORY: Dysphagia. Rule out aspiration. History of COPD and recurrent pneumonia. TECHNIQUE: Deglutition study is performed utilizing thin liquid barium, honey and nectar thick liqui d barium, barium thick applesauce, and barium coated cracker. A total of 1 minute 24 seconds of fluor oscopic time was utilized during procedure. COMPARISON: CT chest November 11, 2014. FINDINGS: The oral and pharyngeal phases show satisfactory initiation and propagation with all modali ties tested. Normal mastication is seen with solid modalities tested. There is no evidence of penet ration or aspiration with any modality tested. No significant pharyngeal residue was appreciated. IMPRESSION: Normal deglutition study. Please refer to speech therapist notes for further details if necessary.
[2016-06-26 10:37] LABS: Basophils % (A) 0 %; CHCM 31.2; Eosinophils # (A) 0.2 k/uL (0-0.7); Eosinophils % (A) 3 %; HCT 36.5 % (39.0-53.0); HDW 2.31; HGB 11.4 gm/dL (13.0-17.5); Luc # (Auto) 0.12; Luc % (Auto) 2; Lymphocytes # (A) 0.5 k/uL (1.0-4.8); Lymphocytes % (A) 9 %; MCH 29.2 pg (25.0-35.0); MCHC 31.2 g/dL (31.0-37.0); MCV 93.3 fL (80.0-100.0); Mean Platelet Volume 9.6; Monocytes # (A) 0.4 k/uL (0-1.0); Monocytes % (A) 6 %; Neutrophils % (A) 81 %; RBC 3.91 m/uL (4.30-5.90); RDW 14.6 % (11.5-15.5); WBC 6.2 k/uL (3.8-10.6); WBC (Perox) 6.56
[2016-06-26 10:54] LABS: Anion Gap 10 mmol/L; Blood Urea Nitrogen 10 mg/dL (9-20); Calcium 8.8 mg/dL (8.4-10.2); Carbon Dioxide 21 mmol/L (22-30); Chloride 107 mmol/L (98-107); Glucose 212 mg/dL (74-99); Non-African American GFR(MDRD) >60 (>60 ml/min/1.73 sqM); Potassium 3.9 mmol/L (3.5-5.1); Sodium 138 mmol/L (137-145)
[2016-06-26] MEDS ORDERED: RX INFO: IV CONTRAST WAS GIVEN 1 EACH MISC MISCELLANE PRN (11:11)
[2016-06-26] MEDS: FERROUS SULFATE 325 MG TAB PO SCH (12:31)
[2016-06-26] MEDS: MULTIVITAMINS, THERA 1 EACH TAB PO SCH (12:31)
[2016-06-26 12:40] LABS: Glucose,Whole Blood 54 mg/dL (75-99)
[2016-06-26 12:40] LABS: Glucose,Whole Blood 81 mg/dL (75-99)
--- NOTE | 2016-06-26 13:02 | CT ---
EXAMINATION TYPE: CT chest w con DATE OF EXAM: 06/26/2016 12:45 PM COMPARISON: CT chest November 11, 2014 HISTORY: Pneumonia, Sepsis. Abnormal chest x-rays with persistent right upper lobe infiltrate. CT DLP: 267.70 mGycm. Automated Exposure Control for Dose Reduction was Utilized. TECHNIQUE: CT scan of the thorax is performed following with IV Contrast, patient injected with 100 ml mL of Omnipaque 300. FINDINGS: LUNGS: Moderate underlying emphysematous changes redemonstrated. There is persistent reticulation and groundglass opacity involving the posterior aspect of right upper lobe and superior aspect right low er lobe new from prior CT in which multilobar acute infectious process cannot be excluded. There is a dditional linear scarring redemonstrated involving the right middle lobe and lower lobe near diaphrag m. There is tiny right-sided pleural effusion effusion at is slightly larger versus prior exam. There is additional patchy groundglass opacity in the posterior superior left upper lung near axial image 24 new from prior exam in which acute infiltrate at this level cannot be excluded. No suspicious pare nchymal nodule or mass is present. No pneumothorax is seen bilaterally. Pleural calcification anterio rly in the right mid to lower lung is redemonstrated and anteriorly left mid lung is again seen, unde rlying asbestosis exposure should be considered. MEDIASTINUM: There are no greater than 1 cm hilar or mediastinal lymph nodes. No cardiomegaly or pe ricardial effusion is seen. [place] coronary artery calcification is present. There is redemonstratio n of large hernia extending to the posterior right lower thorax containing almost the entire contrast -filled stomach and portion of transverse colon similar to prior exam. Contrast from recent swallow s tudy is noted. OTHER: Dependent gallstone in the gallbladder redemonstrated. IMPRESSION: 1. Moderate underlying emphysematous change with suspicious areas of infiltrate involving the posteri or right upper lobe and superior right lower lobe confirmed at area of x-ray concern, smaller area of acute infiltrate posterior superior left lower lobe is difficult to exclude not as well seen on ches t x-ray. 2. Redemonstration of large hiatal hernia containing almost entire stomach and portion of transverse colon.
--- NOTE | 2016-06-26 15:07 | P.PN ---
Subjective This is an 86-year-old male one of my patient with a previous medical history significant for diabetes mellitus type 2, hyperkalemia, moderate COPD, lung cancer status post partial lobectomy, GERD, patient woke up the today complaining of feeling sick with fever and chills he was feeling fine yesterday , he was feeling chills in the morning and he asked his taken to the ER so she drove him over and the patient had a chest x-ray that showed a right lower lobe infiltrate with right pleural effusion and the patient was admitted to the hospital for right lower lobe pneumonia was started on IV antibiotic and he is to be seen by pulmonary Dr. Turcios. 06/24: Patient's doing at bedside, patient notes discharge her to meat products, less short of breath and some cough no fever no chills patient consult was made with modified barium swallow eval, home O2 needs to be addressed for requirements prior to discharge, 06/25: Sputum culture is growing MRSA, and ibex readjusted to Bactrim and Augmentin by pulmonary, patient has no new complaints today, awaiting modified barium swallow and speech evaluation, no new aspirate events of fever no chills 06/26: Patient underwent modified barium swallow with recommendations from speech therapist for regular diet with thin liquids but take small bites and sips an alternate liquids and solids. He was scheduled for outpatient CAT scan of the chest this week which has been done on this admission showing moderate underlying emphysematous change with suspicious areas of infiltrate involving the posterior right upper lobe and superior right lower lobe. Small area of acute infiltrate posterior superior left lower lobe is difficult to exclude. Redemonstration of large hiatal hernia containing almost entire stomach and portion of transverse colon. Objective - Vital Signs Vital signs: Vital Signs Temp 98.4 F 06/26/16 07:00 Pulse 80 06/26/16 08:21 Resp 18 06/26/16 07:00 BP 140/69 06/26/16 07:00 Pulse Ox 93 L 06/26/16 07:00 Intake & Output 06/25/16 06/26/16 06/26/16 18:59 06:59 18:59 Intake Total 520 100 Output Total 925 300 Balance 520 -825 -300 Intake: Oral 520 100 Output: Urine 925 300 Other: # Voids 600 1 - Exam General appearance: Present: cooperative, no acute distress - EENT Eyes: Present: anicteric sclerae, EOMI, PERRLA, dentition normal, normal appearance ENT: Present: hearing grossly normal, NA/AT, normal oropharynx - Neck Neck: Present: normal ROM - Respiratory Respiratory: bilateral: CTA, negative: dullness, rales, rhonchi, wheezing - Cardiovascular Rhythm: regular Abnormal Heart Sounds: Absent: systolic murmur, diastolic murmur, rub, S3 Gallop , S4 Gallop, click, other - Gastrointestinal General gastrointestinal: Present: normal bowel sounds, soft - Integumentary Integumentary: Present: normal, normal turgor - Neurologic Neurologic: Present: CNII-XII intact - Musculoskeletal Musculoskeletal: Present: gait normal, strength equal bilaterally - Psychiatric Psychiatric: Present: A&O x's 3, appropriate affect, intact judgment & insight - Labs CBC & Chem 7: 06/26/16 10:19 06/26/16 10:19 Labs: Abnormal Lab Results - Last 24 Hours (Table) 06/25/16 06/25/16 06/25/16 Range/Units 09:10 09:10 12:27 RBC 4.05 L (4.30-5.90) m/uL Hgb 12.1 L (13.0-17.5) gm/dL Hct 36.4 L (39.0-53.0) % Plt Count 115 L (150-450) k/uL Lymphocytes # 0.8 L (1.0-4.8) k/uL Glucose 143 H (74-99) mg/dL POC Glucose (mg/dL) 114 H (75-99) mg/dL 06/25/16 06/26/16 Range/Units 21:44 07:13 RBC (4.30-5.90) m/uL Hgb (13.0-17.5) gm/dL Hct (39.0-53.0) % Plt Count (150-450) k/uL Lymphocytes # (1.0-4.8) k/uL Glucose (74-99) mg/dL POC Glucose (mg/dL) 170 H 107 H (75-99) mg/dL Microbiology - Last 24 Hours (Table) 06/23/16 11:05 Gram Stain - Final Sputum Sputum Culture - Final Methicillin resist S. aureus Assessment and Plan Plan: 1. MRSA Right lower lobe pneumonia with right pleural effusion. Continue Augmentin and Bactrim, DuoNeb 3 mg nebulization 4 times every day, Pulmonary consultation with Dr. Turcios, continue Pulmicort DuoNeb 2. Moderate COPD. Continue treatment as in paragraph #1. 3. Diabetes mellitus type 2. Continue patient on Glucotrol 2.5 mg orally 3 times every day, continue metformin 1000 g orally twice every day, continue Onglyza 5 mg orally once every day. Place the patient on the sliding scale insulin, BGM before each meal and at bedtime. 4. History of lung cancer status post partial resection. Continue Remeron for anorexia 5. GERD. Continue patient on the Prilosec 20 mg orally twice every day. 6. Hyperlipidemia. Continue low-cholesterol diet. 7. Diaphragmatic hernia. Stable at this point in time. 8. Enlarged prostate. Stable. 9. DVT prophylaxis. Lovenox 40 mg subcutaneously every 24 hours. An MORALES hose 10. GI prophylaxis. Continue omeprazole 20 mg orally twice every day. 11. Patient is full code discussed with the patient. Discharge plan: Return home Impression and plan of care have been directed as dictated by the signing physician. Renita Barger nurse practitioner acting as scribe for signing physician. Time with Patient: Greater than 30
[2016-06-26 17:06] LABS: Glucose,Whole Blood 133 mg/dL (75-99)
--- NOTE | 2016-06-26 17:27 | P.PN ---
Subjective Principal diagnosis: Acute right-sided pneumonia possible aspiration in nature. 86-year-old male patient, Hospital as for a suspected right lung pneumonia. I was consulted for this problem. The patient is known to me. He is known to have COPD. He is also known to have lung cancer with a previous left upper lobe resection many years back without evidence of any recurrence. He also has a large intrathoracic hiatal hernia. The patient woke up today and he was having chills and he was feeling sick and feverish. He is a congested cough without any significant sputum production. No pleurisy. No change in mental status. He came into the emergency department where a chest x-ray was done and showed a hiatal hernia in addition to the right lung pneumonia especially involving the right middle lobe and right lower lobe. The patient was started and accommodation of Zosyn and Levaquin. No reported aspiration although the patient is supporting reflux and at times is having difficulties in swallowing. He is diabetic. No travel history. No trauma. No hemoptysis. No pleurisy. No other constitutional symptoms or Weight Loss On the patient is breathing easier and is less short of breath. No reported chills. No fever. Cough and chest congestion is improved. No chest pain. No nausea or vomiting. No change in mental status. No other complaints otherwise for now. Maze hemodynamically stable and he is resting comfortably in bed. On 06/25/2016 the patient is doing well and has no specific complaints. Sputum culture came back positive for MRSA. Clinically however the patient is improved and the patient was receiving a combination of Zosyn and Levaquin. A swallow evaluation will be done tomorrow. No fever. No chills. Chest exit from yesterday was noted and reviewed. On 06/26/2016, patient continues to do relatively well, treated with a combination of Zosyn and Levaquin, however his sputum cultures came back positive for MRSA. A shunt is now on Augmentin, and Bactrim because of his MRSA in the sputum. Discharge planning is likely in progress. CBC is relatively normal and basic metabolic profile is normal. Patient is doing well overall. Continues to improve steadily. Objective - Vital Signs Vital signs: Vital Signs Temp 96.9 F L 06/26/16 15:00 Pulse 84 06/26/16 16:42 Resp 18 06/26/16 15:00 BP 121/65 06/26/16 15:00 Pulse Ox 93 L 06/26/16 15:00 Intake & Output 06/25/16 06/26/16 06/26/16 18:59 06:59 18:59 Intake Total 520 100 240 Output Total 925 300 Balance 520 -825 -60 Intake: Oral 520 100 240 Output: Urine 925 300 Other: Voiding Method Toilet Urinal # Voids 600 1 - Exam Head exam was generally normal. There was no scleral icterus or corneal arcus. Mucous membranes were moist.Neck was supple and without jugular venous distension, thyromegaly, or carotid bruits. Carotids were easily palpable bilaterally. There was no adenopathy. Lung sounds are diminished in the right lung base along with some limited crackles in the right basal area.Cardiac exam revealed the PMI to be normally situated and sized. The rhythm was regular and no extrasystoles were noted during several minutes of auscultation. The first and second heart sounds were normal and physiologic splitting of the second heart sound was noted. There were no murmurs, rubs, clicks, or gallops.Abdominal exam revealed normal bowel sounds. The abdomen was soft, non- tender, and without masses, organomegaly, or appreciable enlargement of the abdominal aorta.Examination of the extremities revealed easily palpable radial, femoral and pedal pulses. There was no cyanosis, clubbing or edema. - Labs CBC & Chem 7: 06/26/16 10:19 06/26/16 10:19 Labs: Abnormal Lab Results - Last 24 Hours (Table) 06/25/16 06/26/16 06/26/16 Range/Units 21:44 07:13 10:19 RBC 3.91 L (4.30-5.90) m/uL Hgb 11.4 L (13.0-17.5) gm/dL Hct 36.5 L (39.0-53.0) % Plt Count 127 L (150-450) k/uL Lymphocytes # 0.5 L (1.0-4.8) k/uL Carbon Dioxide (22-30) mmol/L Glucose (74-99) mg/dL POC Glucose (mg/dL) 170 H 107 H (75-99) mg/dL 06/26/16 06/26/16 06/26/16 Range/Units 10:19 12:22 16:57 RBC (4.30-5.90) m/uL Hgb (13.0-17.5) gm/dL Hct (39.0-53.0) % Plt Count (150-450) k/uL Lymphocytes # (1.0-4.8) k/uL Carbon Dioxide 21 L (22-30) mmol/L Glucose 212 H (74-99) mg/dL POC Glucose (mg/dL) 54 L 133 H (75-99) mg/dL Assessment and Plan Plan: 1 Right lung pneumonia involving the right lower lobe and the right middle lobe. Rule out aspiration pneumonia. Currently on accommodation of Zosyn and Levaquin. The patient has a large intrathoracic hiatal hernia and at times is having difficulties with swallowing and reflux. As such was covered by a combination of Zosyn and Levaquin. On 06/25/2016, The patient is clinically improved presently on Augmentin and Bactrim. Patient was on Levaquin and Zosyn. 2 COPD 3 lung cancer with a previous left upper lobe resection 4 diabetes mellitus type 2 5 hyperlipidemia 6 BPH Recommendation: Continue present meds, consider discharge planning follow-up on outpatient basis with Dr. Turcios. Time with Patient: Less than 30
[2016-06-26] MEDS: MIRTAZAPINE 15 MG TAB PO SCH (20:40)
[2016-06-26 20:52] LABS: Glucose,Whole Blood 144 mg/dL (75-99)
[2016-06-27 00:35] VITALS: RESP 20
[2016-06-27] MEDS: SODIUM CHLORIDE 0.9% 1,000 ML IV SCH (03:19)
[2016-06-27 03:40] LABS: Glucose,Whole Blood 126 mg/dL (75-99)
[2016-06-27 06:55] LABS: Glucose,Whole Blood 107 mg/dL (75-99)
[2016-06-27 07:22] VITALS: BP 126/73; TEMP 98.5
[2016-06-27] MEDS: INSULIN LISPRO (humaLOG) 300 UNIT/3 ML VIAL SQ SCH ×2 (07:23→12:43)
[2016-06-27] MEDS: PANTOPRAZOLE 40 MG TABLET PO SCH (07:44)
[2016-06-27] MEDS: ENOXAPARIN 40 MG/0.4 ML SYRINGE SQ SCH (07:45)
[2016-06-27] MEDS: AMOXIC-POT CLAV 875-125MG 1 EACH TAB PO SCH (07:45)
[2016-06-27] MEDS: ASPIRIN 81 MG CHEW PO SCH (07:45)
[2016-06-27] MEDS: metFORMIN 500 MG TAB PO SCH (07:46)
[2016-06-27] MEDS: SULFAMETHOX-TMP 800-160MG 1 EACH TAB PO SCH (07:46)
[2016-06-27] MEDS: LINAGLIPTIN 5 MG TABLET PO SCH (07:46)
[2016-06-27 09:31] LABS: Basophils % (A) 0 %; CH 28.9; CHCM 32.2; Eosinophils # (A) 0.3 k/uL (0-0.7); Eosinophils % (A) 6 %; HCT 34.8 % (39.0-53.0); HDW 2.41; Luc # (Auto) 0.16; Luc % (Auto) 3; Lymphocytes # (A) 0.6 k/uL (1.0-4.8); Lymphocytes % (A) 10 %; MCH 28.6 pg (25.0-35.0); MCHC 31.6 g/dL (31.0-37.0); MCV 90.4 fL (80.0-100.0); Mean Platelet Volume 9.2; Monocytes # (A) 0.3 k/uL (0-1.0); Monocytes % (A) 6 %; Neutrophils # (A) 4.4 k/uL (1.3-7.7); Neutrophils % (A) 76 %; RBC 3.85 m/uL (4.30-5.90); RDW 14.5 % (11.5-15.5); WBC 5.8 k/uL (3.8-10.6); WBC (Perox) 5.81
[2016-06-27 09:34] LABS: Anion Gap 8 mmol/L; Blood Urea Nitrogen 8 mg/dL (9-20); Calcium 8.8 mg/dL (8.4-10.2); Carbon Dioxide 22 mmol/L (22-30); Chloride 108 mmol/L (98-107); Glucose 156 mg/dL (74-99); Non-African American GFR(MDRD) >60 (>60 ml/min/1.73 sqM); Sodium 138 mmol/L (137-145)
[2016-06-27] MEDS: IPRATROPIUM-ALBUTEROL 3 ML NEB INHALATION SCH ×2 (10:00→11:11)
[2016-06-27] MEDS: BUDESONIDE 0.5 MG/2 ML NEBU INHALATION SCH (10:00)
[2016-06-27 11:15] VITALS: PULSE 84
[2016-06-27 12:12] LABS: Glucose,Whole Blood 126 mg/dL (75-99)
[2016-06-27] MEDS: FERROUS SULFATE 325 MG TAB PO SCH (13:15)
[2016-06-27] MEDS: MULTIVITAMINS, THERA 1 EACH TAB PO SCH (13:15)
--- NOTE | 2016-06-27 14:13 | P.DS ---
Providers Date of admission: 06/23/16 10:36 Expected date of discharge: 06/27/16 Attending physician: Jasmin Natarajan Consults: 06/23/16 12:13 Consult Physician Routine Consulting Provider: Stacey Turcios Consult Reason/Comments: lung ca, pneumonia Do you want consulting provider notified?: Yes Primary care physician: Jasmin Natarajan Hospital Course: This is an 86-year-old male one of my patient with a previous medical history significant for diabetes mellitus type 2, hyperkalemia, moderate COPD, lung cancer status post partial lobectomy, GERD, patient woke up the today complaining of feeling sick with fever and chills he was feeling fine yesterday , he was feeling chills in the morning and he asked his taken to the ER so she drove him over and the patient had a chest x-ray that showed a right lower lobe infiltrate with right pleural effusion and the patient was admitted to the hospital for right lower lobe pneumonia was started on IV antibiotic and he is to be seen by pulmonary Dr. Turcios. 06/24: Patient's at bedside, patient notes discharge her to meat products, less short of breath and some cough no fever no chills patient consult was made with modified barium swallow eval, home O2 needs to be addressed for requirements prior to discharge, 06/25: Sputum culture is growing MRSA, and ibex readjusted to Bactrim and Augmentin by pulmonary, patient has no new complaints today, awaiting modified barium swallow and speech evaluation, no new aspirate events of fever no chills 06/26: Patient underwent modified barium swallow with recommendations from speech therapist for regular diet with thin liquids but take small bites and sips an alternate liquids and solids. He was scheduled for outpatient CAT scan of the chest this week which has been done on this admission showing moderate underlying emphysematous change with suspicious areas of infiltrate involving the posterior right upper lobe and superior right lower lobe. Small area of acute infiltrate posterior superior left lower lobe is difficult to exclude. Redemonstration of large hiatal hernia containing almost entire stomach and portion of transverse colon. There is concern for asbestosis. 06/27: Patient's shortness of breath is improved and denies any chest pain. He is anxious to be discharged home. Patient will be discharged home today and stable condition Discharge diagnoses: 1. MRSA Right lower lobe pneumonia with right pleural effusion. 2. COPD without exacerbation. 3. Diabetes mellitus type 2. 4. History of lung cancer status post partial resection. 5. GERD. 6. Hyperlipidemia. 7. Diaphragmatic hernia. 8. Enlarged prostate. Stable. Discharge plan: Return home Impression and plan of care have been directed as dictated by the signing physician. Renita Barger nurse practitioner acting as scribe for signing physician. Patient Condition at Discharge: Good Plan - Discharge Summary New Discharge Prescriptions: Amoxic-Pot Clav 875-125Mg [Augmentin 875-125] 1 each PO Q12HR #28 tab Sulfamethox-Tmp 800-160Mg [Bactrim DS 800-160 mg] 1 each PO BID #28 tab Discharge Medication List Omeprazole [PriLOSEC] 20 mg PO AC-BID 11/21/13 [History] glipiZIDE [Glucotrol] 2.5 mg PO TID 11/21/13 [History] Aspirin 81 mg PO DAILY 06/23/16 [History] Budesonide [Pulmicort] 0.5 mg INHALATION RT-BID 06/23/16 [History] Ferrous Sulfate [Iron (65 MG Elemental)] 325 mg PO DAILY 06/23/16 [History] Ipratropium [place] [Atrovent Hfa] 2 puff INHALATION RT-TID 06/23/16 [History] Mirtazapine [Remeron] 7.5 mg PO HS 06/23/16 [History] Multivit-Min/FA/Lycopen/Lutein [Centrum Silver Men Tablet] 1 tab PO DAILY [History] Saxagliptin HCl [Onglyza] 5 mg PO DAILY 06/23/16 [History] metFORMIN HCL 1,000 mg PO BID 06/23/16 [History] Amoxic-Pot Clav 875-125Mg [Augmentin 875-125] 1 each PO Q12HR #28 tab 06/27/16 [ Rx] Sulfamethox-Tmp 800-160Mg [Bactrim DS 800-160 mg] 1 each PO BID #28 tab [Rx] Follow up Appointment(s)/Referral(s): Jasmin Natarajan MD [Primary Care Provider] - 07/06/16 9:30 am Stacey Turcios MD [STAFF PHYSICIAN] - 1 Week (OFFICE WILL CALL WITH APPOINTMENT) Patient Instructions/Handouts: MRSA (Methicillin Resistant Staphylococcus Aureus) (DC), Type 2 Diabetes in Adults (DC), Pneumonia (DC) Discharge Disposition: HOME SELF-CARE
--- NOTE | 2016-06-27 15:02 | P.PN ---
Subjective Principal diagnosis: Acute right-sided pneumonia suspect aspiration. 86-year-old male patient, Hospital as for a suspected right lung pneumonia. I was consulted for this problem. The patient is known to me. He is known to have COPD. He is also known to have lung cancer with a previous left upper lobe resection many years back without evidence of any recurrence. He also has a large intrathoracic hiatal hernia. The patient woke up today and he was having chills and he was feeling sick and feverish. He is a congested cough without any significant sputum production. No pleurisy. No change in mental status. He came into the emergency department where a chest x-ray was done and showed a hiatal hernia in addition to the right lung pneumonia especially involving the right middle lobe and right lower lobe. The patient was started and accommodation of Zosyn and Levaquin. No reported aspiration although the patient is supporting reflux and at times is having difficulties in swallowing. He is diabetic. No travel history. No trauma. No hemoptysis. No pleurisy. No other constitutional symptoms or Weight Loss On the patient is breathing easier and is less short of breath. No reported chills. No fever. Cough and chest congestion is improved. No chest pain. No nausea or vomiting. No change in mental status. No other complaints otherwise for now. Maze hemodynamically stable and he is resting comfortably in bed. On 06/25/2016 the patient is doing well and has no specific complaints. Sputum culture came back positive for MRSA. Clinically however the patient is improved and the patient was receiving a combination of Zosyn and Levaquin. A swallow evaluation will be done tomorrow. No fever. No chills. Chest exit from yesterday was noted and reviewed. On 06/26/2016, patient continues to do relatively well, treated with a combination of Zosyn and Levaquin, however his sputum cultures came back positive for MRSA. A shunt is now on Augmentin, and Bactrim because of his MRSA in the sputum. Discharge planning is likely in progress. CBC is relatively normal and basic metabolic profile is normal. Patient is doing well overall. Continues to improve steadily. The patient is seen again today 06/27/2016 in follow-up on the regular medical floor. He is awake and alert in no acute distress. He is quite anxious to go home. He denies any worsening shortness of breath, cough or congestion. Objective - Vital Signs Vital signs: Vital Signs Temp 98.5 F 06/27/16 07:00 Pulse 84 06/27/16 11:24 Resp 20 06/27/16 07:00 BP 126/73 06/27/16 07:00 Pulse Ox 95 06/27/16 07:00 Intake & Output 06/26/16 06/27/16 06/27/16 18:59 06:59 18:59 Intake Total 240 600 Output Total 300 Balance -60 600 Intake: Oral 240 600 Output: Urine 300 Other: Voiding Method Toilet Toilet Urinal Urinal # Voids 2 3 # Bowel Movements 2 - Exam Head exam was generally normal. There was no scleral icterus or corneal arcus. Mucous membranes were moist.Neck was supple and without jugular venous distension, thyromegaly, or carotid bruits. Carotids were easily palpable bilaterally. There was no adenopathy. Lung sounds are diminished in the right lung base along with some limited crackles in the right basal area.Cardiac exam revealed the PMI to be normally situated and sized. The rhythm was regular and no extrasystoles were noted during several minutes of auscultation. The first and second heart sounds were normal and physiologic splitting of the second heart sound was noted. There were no murmurs, rubs, clicks, or gallops.Abdominal exam revealed normal bowel sounds. The abdomen was soft, non- tender, and without masses, organomegaly, or appreciable enlargement of the abdominal aorta.Examination of the extremities revealed easily palpable radial, femoral and pedal pulses. There was no cyanosis, clubbing or edema. - Labs CBC & Chem 7: 06/27/16 08:38 06/27/16 08:38 Labs: Abnormal Lab Results - Last 24 Hours (Table) 06/26/16 06/26/16 06/27/16 Range/Units 16:57 20:39 03:35 RBC (4.30-5.90) m/uL Hgb (13.0-17.5) gm/dL Hct (39.0-53.0) % Plt Count (150-450) k/uL Lymphocytes # (1.0-4.8) k/uL Chloride (98-107) mmol/L BUN (9-20) mg/dL Glucose (74-99) mg/dL POC Glucose (mg/dL) 133 H 144 H 126 H (75-99) mg/dL 06/27/16 06/27/16 06/27/16 Range/Units 06:54 08:38 08:38 RBC 3.85 L (4.30-5.90) m/uL Hgb 11.0 L (13.0-17.5) gm/dL Hct 34.8 L (39.0-53.0) % Plt Count 128 L (150-450) k/uL Lymphocytes # 0.6 L (1.0-4.8) k/uL Chloride 108 H (98-107) mmol/L BUN 8 L (9-20) mg/dL Glucose 156 H (74-99) mg/dL POC Glucose (mg/dL) 107 H (75-99) mg/dL 06/27/16 Range/Units 12:11 RBC (4.30-5.90) m/uL Hgb (13.0-17.5) gm/dL Hct (39.0-53.0) % Plt Count (150-450) k/uL Lymphocytes # (1.0-4.8) k/uL Chloride (98-107) mmol/L BUN (9-20) mg/dL Glucose (74-99) mg/dL POC Glucose (mg/dL) 126 H (75-99) mg/dL Assessment and Plan Plan: Impression: 1 Right lung pneumonia involving the right lower lobe and the right middle lobe secondary to MRSA. Currently on Bactrim. 2 COPD 3 lung cancer with a previous left upper lobe resection 4 diabetes mellitus type 2 5 hyperlipidemia 6 BPH Land: The patient was seen and evaluated by Dr. Anderson. He is cleared for discharge from the pulmonary standpoint. He'll be maintained on Bactrim for his MRSA. The patient is willing to follow up with Dr. Turcios in our office in 1 week and we'll repeat his chest x-ray then and make further recommendations. He and his are both encouraged to call sooner however with any recurrence of symptoms or other questions or concerns.
== END 2016-06-27 14:32 | disposition home or self-care (01) | DRG 190 ==
LOC: EC 07:38 → 4MS4W 10:36
PROVIDERS: ADMIT Internal Medicine; ATTEND Internal Medicine
DX: J44.0 Chronic obstructive pulmonary disease with (acute) lower respiratory infection (principal); J15.212 Pneumonia due to Methicillin resistant Staphylococcus aureus; J91.8 Pleural effusion in other conditions classified elsewhere; E11.9 Type 2 diabetes mellitus without complications; F32.9 Major depressive disorder, single episode, unspecified; E78.5 Hyperlipidemia, unspecified; K21.9 Gastro-esophageal reflux disease without esophagitis; K44.9 Diaphragmatic hernia without obstruction or gangrene; N40.0 Benign prostatic hyperplasia without lower urinary tract symptoms; R09.02 Hypoxemia; R13.10 Dysphagia, unspecified; M19.042 Primary osteoarthritis, left hand; M19.041 Primary osteoarthritis, right hand; M19.072 Primary osteoarthritis, left ankle and foot; M19.071 Primary osteoarthritis, right ankle and foot; Z79.82 Long term (current) use of aspirin; Z79.84 Long term (current) use of oral hypoglycemic drugs; Z79.899 Other long term (current) drug therapy; Z85.118 Personal history of other malignant neoplasm of bronchus and lung; Z87.891 Personal history of nicotine dependence; Z90.2 Acquired absence of lung [part of]; Z82.49 Family history of ischemic heart disease and other diseases of the circulatory system
CPT/HCPCS: 36415; 71020; 71260; 74230; 80048; 80053; 81003; 82550; 82553; 83036; 83735; 83880; 84100; 84484; 85025; 85027; 85610; 85730; 86738; 87070; 87077; 87086; 87186; 87205; 93005; 94640; 94644; 94760

== ENCOUNTER 2016-08-09 08:58 | Inpatient (IN) | payer MEDICARE, OTHER ==
[2016-08-09] MEDS ORDERED: IPRATROPIUM-ALBUTEROL 3 ML NEB INHALATION STA (09:30)
[2016-08-09] MEDS ORDERED: SODIUM CHLORIDE 0.9% 1,000 ML IV STA (09:30)
--- NOTE | 2016-08-09 09:32 | ED ---
SOB HPI - General Chief Complaint: Shortness of Breath Stated Complaint: PATIENT STATES POSS MRSA,STAFF IN LUNGS Time Seen by Provider: 08/09/16 09:20 Source: patient, family, RN notes reviewed Mode of arrival: wheelchair Limitations: no limitations - History of Present Illness Initial Comments: This is a 86-year-old male with a history of a left lung partial resection some years ago who complains of 3 days of shortness of breath cough with yellow phlegm feeling dry but no fevers chills or sweats. He states he does get exertional dyspnea. He does have a history of MRSA he has occasional flareups last one being about 2 months ago. He denies any chest pain nausea vomiting or other symptoms at this time. MD Complaint: shortness of breath, cough - Related Data Home Medications Medication Instructions Recorded Confirmed Omeprazole [PriLOSEC] 20 mg PO AC-BID 11/21/13 08/09/16 glipiZIDE [Glucotrol] 2.5 mg PO TID 11/21/13 08/09/16 Aspirin 81 mg PO DAILY 06/23/16 08/09/16 Budesonide [Pulmicort] 0.5 mg INHALATION RT-BID 06/23/16 08/09/16 Ferrous Sulfate [Iron (65 MG 325 mg PO DAILY 06/23/16 08/09/16 Elemental)] Ipratropium [place] [Atrovent Hfa] 2 puff INHALATION RT-TID 06/23/16 08/09/16 Mirtazapine [Remeron] 7.5 mg PO HS 06/23/16 08/09/16 Multivit-Min/FA/Lycopen/Lutein 1 tab PO DAILY 06/23/16 08/09/16 [Centrum Silver Men Tablet] Saxagliptin HCl [Onglyza] 5 mg PO DAILY 06/23/16 08/09/16 metFORMIN HCL 1,000 mg PO BID 06/23/16 08/09/16 Allergies Allergy/AdvReac Type Severity Reaction Status Date / Time No Known Allergies Allergy Verified 08/09/16 10:02 Review of Systems ROS Statement: Those systems with pertinent positive or pertinent negative responses have been documented in the HPI. ROS Other: All systems not noted in ROS Statement are negative. Past Medical History Past Medical History: Asthma, Cancer, COPD, CVA/TIA, Diabetes Mellitus, GERD/ Reflux, Hyperlipidemia, Osteoarthritis (OA) Additional Past Medical History / Comment(s): 2010 L lung cancer with sx, NIDDM type II, TIA in 2012, iron deficiency anemia, athritis bilateral hands/feet, hiatal hernia History of Any Multi-Drug Resistant Organisms: MRSA Date of last positivie culture/infection: 06/23/16 MDRO Source:: sputum Past Surgical History: Orthopedic Surgery, Tonsillectomy Additional Past Surgical History / Comment(s): 2/3 left lobectomy 2009-post op incisional infection and had debridements, colonoscopy/benign polypectomy, hemmoroidectomy, right shoulder arthrotomy. Past Anesthesia/Blood Transfusion Reactions: No Reported Reaction Past Psychological History: Depression Additional Psychological History / Comment(s): Pt resides with his spouse. He uses a cane at times. He drives short distances. He is independent. Smoking Status: Former smoker Past Alcohol Use History: Occasional Additional Past Alcohol Use History / Comment(s): Pt started smoking in 1950 and quit in 1979. Past Drug Use History: None Reported - Past Family History Father Family Medical History: No Reported History (Father at age of 75 from alcohol is in.) Additional Family Medical History / Comment(s): Father at the age of 74yrs. Mother Family Medical History: CVA/TIA (Mother at age of 80 from stroke.) Additional Family Medical History / Comment(s): Mother was healthy and at the age of 80yrs. Sister(s) Family Medical History: Coronary Artery Disease (CAD), Myocardial Infarction (ID ) (Patient had 2 sisters one of them from CABG the other one from CAD. ) Brother(s) Family Medical History: Neurologic Disorder (Patient has one brother multiple sclerosis.) Daughter(s) Family Medical History: No Reported History (Patient has 3 daughters no major medical problems) Son(s) Family Medical History: Cancer (Patient has one son with prostate cancer per) General Exam - General Exam Comments Initial Comments: This is a well-developed well-nourished awake alert oriented 3 male Limitations: no limitations General appearance: alert, in no apparent distress Head exam: Present: atraumatic, normocephalic, normal inspection Eye exam: Present: normal appearance, PERRL, EOMI. Absent: scleral icterus, conjunctival injection, periorbital swelling ENT exam: Present: mucous membranes dry Neck exam: Present: normal inspection. Absent: tenderness, meningismus, lymphadenopathy Respiratory exam: Present: decreased breath sounds. Absent: respiratory distress, wheezes, rales, rhonchi, stridor Cardiovascular Exam: Present: regular rate, normal rhythm, normal heart sounds. Absent: systolic murmur, diastolic murmur, rubs, gallop, clicks GI/Abdominal exam: Present: soft, normal bowel sounds. Absent: distended, tenderness, guarding, rebound, rigid Extremities exam: Present: normal inspection, full ROM, normal capillary refill. Absent: tenderness, pedal edema, joint swelling, calf tenderness Back exam: Present: normal inspection Neurological exam: Present: alert, oriented X3, CN II-XII intact Psychiatric exam: Present: normal affect, normal mood Skin exam: Present: warm, dry, intact, normal color. Absent: rash Course Vital Signs 08/09/16 08/09/16 08/09/16 09:13 10:14 10:46 Temperature 97.5 F L Pulse Rate 83 79 80 Respiratory 18 18 Rate Blood Pressure 157/67 155/77 O2 Sat by Pulse 97 100 Oximetry 08/09/16 08/09/16 08/09/16 10:56 11:02 12:00 Temperature Pulse Rate 80 79 87 Respiratory 18 18 Rate Blood Pressure 147/61 154/72 O2 Sat by Pulse 97 96 Oximetry 08/09/16 13:11 Temperature 98.1 F Pulse Rate 87 Respiratory 16 Rate Blood Pressure 147/68 O2 Sat by Pulse 99 Oximetry - Reevaluation(s) Reevaluation #1: 08/09/16 13:21 Reevaluation patient reveals minimal improvement Medical Decision Making - Medical Decision Making I did discuss findings with patient family patient will be admitted with consultation by pulmonary medicine is no CVAT Dr. Turcios. - Lab Data Result diagrams: 08/09/16 09:45 08/09/16 09:45 Lab Results 08/09/16 08/09/16 08/09/16 Range/Units 09:45 09:45 09:45 WBC 6.8 (3.8-10.6) k/uL RBC 4.23 L (4.30-5.90) m/uL Hgb 12.5 L (13.0-17.5) gm/dL Hct 37.6 L (39.0-53.0) % MCV 88.8 (80.0-100.0) fL MCH 29.6 (25.0-35.0) pg MCHC 33.3 (31.0-37.0) g/dL RDW 14.6 (11.5-15.5) % Plt Count 118 L (150-450) k/uL Neutrophils % 80 % Lymphocytes % 11 % Monocytes % 5 % Eosinophils % 1 % Basophils % 0 % Neutrophils # 5.4 (1.3-7.7) k/uL Lymphocytes # 0.8 L (1.0-4.8) k/uL Monocytes # 0.4 (0-1.0) k/uL Eosinophils # 0.1 (0-0.7) k/uL Basophils # 0.0 (0-0.2) k/uL PT (9.0-12.0) sec INR (<1.1) APTT (22.0-30.0) sec Sodium 138 (137-145) mmol/L Potassium 4.2 (3.5-5.1) mmol/L Chloride 101 (98-107) mmol/L Carbon Dioxide 26 (22-30) mmol/L Anion Gap 11 mmol/L BUN 20 (9-20) mg/dL Creatinine 0.77 (0.66-1.25) mg/dL Est GFR (MDRD) Af Amer >60 (>60 ml/min/1.73 sqM) Est GFR (MDRD) Non-Af >60 (>60 ml/min/1.73 sqM) Glucose 159 H (74-99) mg/dL Calcium 8.9 (8.4-10.2) mg/dL Magnesium 1.3 L (1.6-2.3) mg/dL Total Bilirubin 0.7 (0.2-1.3) mg/dL AST 15 L (17-59) U/L ALT 28 (21-72) U/L Alkaline Phosphatase 68 (38-126) U/L Total Creatine Kinase 57 (55-170) U/L CK-MB (CK-2) 1.2 (0.0-2.4) ng/mL CK-MB (CK-2) Rel Index 2.1 Troponin I <0.012 (0.000-0.034) ng/mL NT-Pro-B Natriuret Pep pg/mL Total Protein 6.9 (6.3-8.2) g/dL Albumin 3.9 (3.5-5.0) g/dL 08/09/16 08/09/16 Range/Units 09:45 09:45 WBC (3.8-10.6) k/uL RBC (4.30-5.90) m/uL Hgb (13.0-17.5) gm/dL Hct (39.0-53.0) % MCV (80.0-100.0) fL MCH (25.0-35.0) pg MCHC (31.0-37.0) g/dL RDW (11.5-15.5) % Plt Count (150-450) k/uL Neutrophils % % Lymphocytes % % Monocytes % % Eosinophils % % Basophils % % Neutrophils # (1.3-7.7) k/uL Lymphocytes # (1.0-4.8) k/uL Monocytes # (0-1.0) k/uL Eosinophils # (0-0.7) k/uL Basophils # (0-0.2) k/uL PT 10.8 (9.0-12.0) sec INR 1.1 (<1.1) APTT 25.7 (22.0-30.0) sec Sodium (137-145) mmol/L Potassium (3.5-5.1) mmol/L Chloride (98-107) mmol/L Carbon Dioxide (22-30) mmol/L Anion Gap mmol/L BUN (9-20) mg/dL Creatinine (0.66-1.25) mg/dL Est GFR (MDRD) Af Amer (>60 ml/min/1.73 sqM) Est GFR (MDRD) Non-Af (>60 ml/min/1.73 sqM) Glucose (74-99) mg/dL Calcium (8.4-10.2) mg/dL Magnesium (1.6-2.3) mg/dL Total Bilirubin (0.2-1.3) mg/dL AST (17-59) U/L ALT (21-72) U/L Alkaline Phosphatase (38-126) U/L Total Creatine Kinase (55-170) U/L CK-MB (CK-2) (0.0-2.4) ng/mL CK-MB (CK-2) Rel Index Troponin I (0.000-0.034) ng/mL NT-Pro-B Natriuret Pep 657 pg/mL Total Protein (6.3-8.2) g/dL Albumin (3.5-5.0) g/dL - EKG Data -: EKG Interpreted by Me EKG shows normal: sinus rhythm (Sinus rhythm with a rate of 82 CT interval 160 QRS yazidism 84 QT/QTc is 384/448 occasional PVC.) - Radiology Data Radiology results: report reviewed (I did review the imaging and reports no acute findings.), image reviewed Disposition Clinical Impression: Acute exacerbation of chronic obstructive airways disease, Acute bronchitis Disposition: ADMITTED IP TO THIS HOSP Condition: Stable Referrals: Jasmin Natarajan MD [Primary Care Provider] - 1-2 days Decision Time: 12:45
[2016-08-09 10:07] LABS: Basophils % (A) 0 %; CH 29.7; CHCM 33.6; Eosinophils # (A) 0.1 k/uL (0-0.7); Eosinophils % (A) 1 %; HCT 37.6 % (39.0-53.0); HDW 2.46; HGB 12.5 gm/dL (13.0-17.5); Large Platelets Flag Slight; Luc # (Auto) 0.15; Luc % (Auto) 2; Lymphocytes # (A) 0.8 k/uL (1.0-4.8); Lymphocytes % (A) 11 %; MCH 29.6 pg (25.0-35.0); MCHC 33.3 g/dL (31.0-37.0); MCV 88.8 fL (80.0-100.0); Mean Platelet Volume 10.5; Monocytes # (A) 0.4 k/uL (0-1.0); Monocytes % (A) 5 %; Neutrophils # (A) 5.4 k/uL (1.3-7.7); Neutrophils % (A) 80 %; RBC 4.23 m/uL (4.30-5.90); RDW 14.6 % (11.5-15.5); WBC 6.8 k/uL (3.8-10.6); WBC (Perox) 7.53
[2016-08-09 10:11] LABS: ALT 28 U/L (21-72); AST 15 U/L (17-59); Alkaline Phosphatase 68 U/L (38-126); Anion Gap 11 mmol/L; Blood Urea Nitrogen 20 mg/dL (9-20); Calcium 8.9 mg/dL (8.4-10.2); Carbon Dioxide 26 mmol/L (22-30); Chloride 101 mmol/L (98-107); Glucose 159 mg/dL (74-99); INR 1.1 (<1.1); Magnesium 1.3 mg/dL (1.6-2.3); Non-African American GFR(MDRD) >60 (>60 ml/min/1.73 sqM); Partial Thromboplastin Time 25.7 sec (22.0-30.0); Potassium 4.2 mmol/L (3.5-5.1); Prothrombin Time 10.8 sec (9.0-12.0); Sodium 138 mmol/L (137-145); Total Bilirubin 0.7 mg/dL (0.2-1.3); Total Protein 6.9 g/dL (6.3-8.2)
--- NOTE | 2016-08-09 10:18 | XR ---
EXAMINATION TYPE: XR chest 2V DATE OF EXAM: 08/09/2016 COMPARISON: 06/24/2016 INDICATION: Difficulty breathing cough shortness of breath TECHNIQUE: Frontal and lateral views of the chest are obtained. FINDINGS: The heart size is normal. The pulmonary vasculature is normal. The lungs are clear. There appears be a large hiatal hernia extending towards the right lung base. R ight pleural effusion is present. Postsurgical left hilar changes are present. IMPRESSION: 1. Suspected hiatal hernia. 2. Postsurgical changes left perihilar region
[2016-08-09 10:22] LABS: Creatine Kinase 57 U/L (55-170)
[2016-08-09 10:34] LABS: Creatine Kinase MB 1.2 ng/mL (0.0-2.4); Troponin I <0.012 ng/mL (0.000-0.034)
[2016-08-09 13:14] VITALS: RESP 16
[2016-08-09] MEDS ORDERED: methylPREDNISolone SOD SUCCI 125 MG/2 ML VIAL IV STA (13:16)
[2016-08-09] MEDS ORDERED: LEVOFLOXACIN 750MG-D5W PMX 750 MG in DEXTROSE/WATER 1 150ML.BAG IVPB STA (13:18)
[2016-08-09] MEDS ORDERED: SODIUM CHLORIDE 0.9% 1,000 ML IV SCH (13:30)
[2016-08-09] MEDS ORDERED: MAGNESIUM SULFATE-D5W PMX 1 GM in DEXTROSE/WATER 1 100ML.BAG IVPB ONE (14:00)
[2016-08-09 15:35] LABS: Glucose,Whole Blood 191 mg/dL (75-99)
[2016-08-09] MEDS ORDERED: IPRATROPIUM-ALBUTEROL 3 ML NEB INHALATION SCH (16:00)
[2016-08-09] MEDS: PANTOPRAZOLE 40 MG TABLET PO SCH (16:37)
[2016-08-09] MEDS: methylPREDNISolone SOD SUCCI 125 MG/2 ML VIAL IV SCH ×2 (16:37→23:56)
[2016-08-09 16:53] LABS: Glucose,Whole Blood 285 mg/dL (75-99)
[2016-08-09] MEDS: INSULIN LISPRO (humaLOG) 300 UNIT/3 ML VIAL SQ SCH ×2 (17:33→20:54)
[2016-08-09] MEDS ORDERED: IPRATROPIUM-ALBUTEROL 3 ML NEB INHALATION PRN (18:58)
[2016-08-09] MEDS: IPRATROPIUM-ALBUTEROL 3 ML NEB INHALATION SCH (19:51)
[2016-08-09 20:35] LABS: Glucose,Whole Blood 229 mg/dL (75-99)
[2016-08-09] MEDS: metFORMIN 500 MG TAB PO SCH (20:53)
--- NOTE | 2016-08-09 20:58 | P.HPIM ---
History of Present Illness H&P Date: 08/09/16 Chief Complaint: Shortness of breath cough This is an 86-year-old male patient of Dr. Delgado Turcios with a previous medical history significant for diabetes mellitus type 2, hyperkalemia , moderate COPD, lung cancer status post partial lobectomy, GERD, recent hospitalization last June 23 until June 27 for MRSA right lower lobe pneumonia with right pleural effusion, COPD without any exacerbation and was started to include a normal barium swallowing evaluation as well as speech evaluation for which recommendation was to go home with Augmentin for 14 days, Bactrim for 14 days, and an unrestricted diet. He comes back in with shortness of breath and cough, mainly clear. Currently yellow green sputum, patient does not feel any better with nebulized treatments, he's been sick for 3 days prior to admission, patient does not have any O2 requirements prior to admission. No recent sick contacts except for the with upper respiratory, no recent foreign travels. Patient denies any diarrhea or any other GI pathology In the emergency room he was evaluated for chest x-ray was performed showing hiatal hernia and postsurgical changes left perihilar area right pleural effusion is present Review of Systems Constitutional: Reports as per HPI, Reports anorexia, Reports poor appetite, Reports weight loss Eyes: bilateral as per HPI Ears, nose, mouth and throat: Reports as per HPI, Denies ant. neck pain, Denies bleeding gums, Denies dental pain, Denies dysphagia, Denies epistaxis, Denies headache, Denies hoarseness, Denies mouth pain, Denies nasal congestion, Denies nasal discharge, Denies neck fullness/pressure, Denies neck lump, Denies nose pain, Denies odynophagia, Denies post-nasal drip, Denies sinus pain, Denies sinus pressure, Denies swelling in mouth, Denies swelling in throat, Denies sore throat, Denies vertigo, Denies voice changes Cardiovascular: Reports as per HPI, Denies chest pain, Denies claudication, Denies decreased exercise tolerance, Denies dyspnea on exertion, Denies edema, Denies high blood pressure, Denies irregular heart beat, Denies leg edema, Denies lightheadedness, Denies orthopnea, Denies palpitations, Denies paroxysmal nocturnal dyspnea, Denies phlebitis, Denies rapid heart beat, Denies shortness of breath, Denies syncope Respiratory: Reports as per HPI, Denies congestion, Denies cough, Denies cough with sputum, Denies dyspnea, Denies excessive sputum, Denies hemoptysis, Denies home oxygen, Denies pain, Denies pain on inspiration, Denies pleurisy, Denies respiratory infections, Denies sleep apnea, Denies snoring, Denies wheezing Genitourinary: Reports as per HPI, Denies decreased libido, Denies difficulties fathering child, Denies discharge, Denies dysuria, Denies erectile dysfunction, Denies flank pain, Denies genital pain, Denies genital sores, Denies hematuria, Denies impotence, Denies incontinence, Denies kidney stones, Denies nocturia, Denies polyuria, Denies testicular lump, Denies testicular pain, Denies urinary frequency, Denies urinary hesitancy, Denies urinary retention Musculoskeletal: Reports as per HPI, Denies arm numbness/tingling, Denies atrophy, Denies fractures, Denies frequent falls, Denies gait dysfunction, Denies hot joints, Denies leg numbness/tingling, Denies limitation of motion, Denies loss of height, Denies low back pain, Denies morning stiffness, Denies muscle cramps, Denies muscle weakness, Denies myalgias, Denies neck pain, Denies neck stiffness, Denies prior amputations, Denies redness of joints, Denies shooting arm pain, Denies shooting leg pain Integumentary: Reports as per HPI Neurological: Reports as per HPI, Reports gait dysfunction, Reports weakness Psychiatric: Reports as per HPI Endocrine: Reports as per HPI Hematologic/Lymphatic: Reports as per HPI, Denies easy bleeding, Denies easy bruising, Denies lymphadenopathy, Denies lymphedema, Denies thrombophilia Allergic/Immunologic: Reports as per HPI, Denies allergic rhinitis, Denies anaphylaxis, Denies angioedema, Denies gluten intolerance, Denies persistent infections, Denies seasonal allergies, Denies urticaria, Denies wheezing Past Medical History Past Medical History: Asthma, Cancer, COPD, CVA/TIA, Diabetes Mellitus, GERD/ Reflux, Hyperlipidemia, Osteoarthritis (OA), Pneumonia, Prostate Disorder Additional Past Medical History / Comment(s): 2009 L lung cancer with sx, NIDDM type II, TIA in 2013, iron deficiency anemia, athritis bilateral hands/feet, hiatal hernia, rt side dominant. History of Any Multi-Drug Resistant Organisms: MRSA Date of last positivie culture/infection: 06/23/16 MDRO Source:: sputum Past Surgical History: Orthopedic Surgery, Tonsillectomy Additional Past Surgical History / Comment(s): 2/3 left lobectomy 2009-post op incisional infection and had debridements, colonoscopy/benign polypectomy, hemmoroidectomy, right shoulder arthrotomy. Past Anesthesia/Blood Transfusion Reactions: No Reported Reaction Past Psychological History: Depression Additional Psychological History / Comment(s): Pt resides with his spouse in a single story home that has 3 front proch steps. no pets in the home. no homecare services recieved. . He has a cane ,uses as needed. He drives short distances. He is independent. 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 Smoking Status: Former smoker Past Alcohol Use History: Occasional Additional Past Alcohol Use History / Comment(s): Pt started smoking in 1949 and quit in 1979. Past Drug Use History: None Reported - Past Family History Father Family Medical History: No Reported History Additional Family Medical History / Comment(s): Father at the age of 74yrs. Mother Family Medical History: CVA/TIA Additional Family Medical History / Comment(s): Mother was healthy and at the age of 80yrs. Sister(s) Family Medical History: Coronary Artery Disease (CAD), Myocardial Infarction ([place] ) Brother(s) Family Medical History: Neurologic Disorder Daughter(s) Family Medical History: No Reported History Son(s) Family Medical History: Cancer Medications and Allergies Home Medications Medication Instructions Recorded Confirmed Type Omeprazole [PriLOSEC] 20 mg PO AC-BID 11/21/13 08/09/16 History glipiZIDE [Glucotrol] 2.5 mg PO TID 11/21/13 08/09/16 History Aspirin 81 mg PO DAILY 06/23/16 08/09/16 History Ferrous Sulfate [Iron (65 MG 325 mg PO DAILY 06/23/16 08/09/16 History Elemental)] Ipratropium [place] [Atrovent Hfa] 2 puff INHALATION RT-TID 06/23/16 08/09/16 History Mirtazapine [Remeron] 7.5 mg PO HS 06/23/16 08/09/16 History Multivit-Min/FA/Lycopen/Lutein 1 tab PO DAILY 06/23/16 08/09/16 History [Centrum Silver Men Tablet] Saxagliptin HCl [Onglyza] 5 mg PO DAILY 06/23/16 08/09/16 History metFORMIN HCL 1,000 mg PO BID 06/23/16 08/09/16 History Allergies Allergy/AdvReac Type Severity Reaction Status Date / Time No Known Allergies Allergy Verified 08/09/16 10:02 Physical Exam Vitals: Vital Signs Temp Pulse Pulse Resp BP BP Pulse Ox 08/09/16 19:55 84 08/09/16 19:44 84 08/09/16 14:54 99.3 F 81 16 175/86 99 08/09/16 14:36 98.1 F 85 16 165/79 96 08/09/16 13:11 98.1 F 87 16 147/68 99 08/09/16 12:00 87 18 154/72 96 08/09/16 11:02 79 18 147/61 97 08/09/16 10:56 80 08/09/16 10:46 80 08/09/16 10:14 79 18 155/77 100 08/09/16 09:13 97.5 F L 83 18 157/67 97 Intake and Output 08/09/16 08/09/16 08/09/16 06:59 14:59 22:59 Other: Voiding Method Toilet Weight 68.039 kg Patient Weight 08/10/16 06:59 Weight 68.039 kg - Constitutional General appearance: average body habitus, cooperative, no acute distress, thin - EENT Eyes: anicteric sclerae, EOMI, PERRLA, dentition normal, normal appearance ENT: NA/AT, normal oropharynx - Neck Neck: normal ROM - Respiratory Respiratory: bilateral: CTA, negative: diminished, dullness, rales - Cardiovascular Rhythm: regular Heart sounds: normal: S1, S2 Abnormal Heart Sounds: no systolic murmur, no diastolic murmur, no rub, no S3 Gallop, no S4 Gallop, no click, no other - Gastrointestinal General gastrointestinal: normal bowel sounds, soft - Integumentary Integumentary: decreased turgor, normal - Neurologic Neurologic: CNII-XII intact - Musculoskeletal Musculoskeletal: gait normal, strength equal bilaterally - Psychiatric Psychiatric: A&O x's 3, appropriate affect, intact judgment & insight Results CBC & Chem 7: 08/09/16 09:45 08/09/16 09:45 Labs: Abnormal Lab Results - Last 24 Hours (Table) 08/09/16 08/09/16 08/09/16 Range/Units 09:45 09:45 15:33 RBC 4.23 L (4.30-5.90) m/uL Hgb 12.5 L (13.0-17.5) gm/dL Hct 37.6 L (39.0-53.0) % Plt Count 118 L (150-450) k/uL Lymphocytes # 0.8 L (1.0-4.8) k/uL Glucose 159 H (74-99) mg/dL POC Glucose (mg/dL) 191 H (75-99) mg/dL Magnesium 1.3 L (1.6-2.3) mg/dL AST 15 L (17-59) U/L 08/09/16 08/09/16 Range/Units 16:50 20:33 RBC (4.30-5.90) m/uL Hgb (13.0-17.5) gm/dL Hct (39.0-53.0) % Plt Count (150-450) k/uL Lymphocytes # (1.0-4.8) k/uL Glucose (74-99) mg/dL POC Glucose (mg/dL) 285 H 229 H (75-99) mg/dL Magnesium (1.6-2.3) mg/dL AST (17-59) U/L Laboratory Results WBC 6.8 k/uL (3.8-10.6) 08/09/16 09:45 RBC 4.23 m/uL (4.30-5.90) L 08/09/16 09:45 Hgb 12.5 gm/dL (13.0-17.5) L 08/09/16 09:45 Hct 37.6 % (39.0-53.0) L 08/09/16 09:45 MCV 88.8 fL (80.0-100.0) 08/09/16 09:45 MCH 29.6 pg (25.0-35.0) 08/09/16 09:45 MCHC 33.3 g/dL (31.0-37.0) 08/09/16 09:45 RDW 14.6 % (11.5-15.5) 08/09/16 09:45 Plt Count 118 k/uL (150-450) L 08/09/16 09:45 Neutrophils % 80 % 08/09/16 09:45 Lymphocytes % 11 % 08/09/16 09:45 Monocytes % 5 % 08/09/16 09:45 Eosinophils % 1 % 08/09/16 09:45 Basophils % 0 % 08/09/16 09:45 Neutrophils # 5.4 k/uL (1.3-7.7) 08/09/16 09:45 Lymphocytes # 0.8 k/uL (1.0-4.8) L 08/09/16 09:45 Monocytes # 0.4 k/uL (0-1.0) 08/09/16 09:45 Eosinophils # 0.1 k/uL (0-0.7) 08/09/16 09:45 Basophils # 0.0 k/uL (0-0.2) 08/09/16 09:45 PT 10.8 sec (9.0-12.0) 08/09/16 09:45 INR 1.1 (<1.1) 08/09/16 09:45 APTT 25.7 sec (22.0-30.0) 08/09/16 09:45 Sodium 138 mmol/L (137-145) 08/09/16 09:45 Potassium 4.2 mmol/L (3.5-5.1) 08/09/16 09:45 Chloride 101 mmol/L (98-107) 08/09/16 09:45 Carbon Dioxide 26 mmol/L (22-30) 08/09/16 09:45 Anion Gap 11 mmol/L 08/09/16 09:45 BUN 20 mg/dL (9-20) 08/09/16 09:45 Creatinine 0.77 mg/dL (0.66-1.25) 08/09/16 09:45 Est GFR (MDRD) Af Amer >60 (>60 ml/min/1.73 sqM) 08/09/16 09:45 Est GFR (MDRD) Non-Af >60 (>60 ml/min/1.73 sqM) 08/09/16 09:45 Glucose 159 mg/dL (74-99) H 08/09/16 09:45 POC Glucose (mg/dL) 229 mg/dL (75-99) H 08/09/16 20:33 POC Glu [employer] Manager Tanvi Tomas 08/09/16 20:33 Calcium 8.9 mg/dL (8.4-10.2) 08/09/16 09:45 Magnesium 1.3 mg/dL (1.6-2.3) L 08/09/16 09:45 Total Bilirubin 0.7 mg/dL (0.2-1.3) 08/09/16 09:45 AST 15 U/L (17-59) L 08/09/16 09:45 ALT 28 U/L (21-72) 08/09/16 09:45 Alkaline Phosphatase 68 U/L (38-126) 08/09/16 09:45 Total Creatine Kinase 57 U/L (55-170) 08/09/16 09:45 CK-MB (CK-2) 1.2 ng/mL (0.0-2.4) 08/09/16 09:45 CK-MB (CK-2) Rel Index 2.1 08/09/16 09:45 Troponin I <0.012 ng/mL (0.000-0.034) 08/09/16 09:45 NT-Pro-B Natriuret Pep 657 pg/mL 08/09/16 09:45 Total Protein 6.9 g/dL (6.3-8.2) 08/09/16 09:45 Albumin 3.9 g/dL (3.5-5.0) 08/09/16 09:45 Thrombosis Risk Factor Assmnt - Choose All That Apply Each Risk Factor Represents 3 Points: Age 75 years or older Thrombosis Risk Factor Assessment Total Risk Factor Score: 3 Thrombosis Risk Factor Assessment Level: Moderate Risk Assessment and Plan Plan: 1. Moderate to COPD with exacerbation,. O2 as needed, nebulized albuterol Atrovent and IV Solu-Medrol right pleural effusion. Start the patient on antibiotic in the form of Levaquin 500 mg by mouth daily no acute pneumonia seen in chest x-ray,, sputum culture, blood culture, the last treatment DuoNeb 3 mg nebulization 4 times every day, Pulmonary consultation with Dr. Turcios. 2 . Diabetes mellitus type 2. Continue patient on Glucotrol 2.5 mg orally 3 times every day, continue metformin 1000 g orally twice every day, continue Onglyza 5 mg orally once every day. Place the patient on the sliding scale insulin, BGM before each meal and at bedtime. 4. History of lung cancer status post partial resection. He currently is not on any regimented program, not requiring any chemo, and does not follow or need any follow-up with oncology according to the , last chest CT 06/26/2016 are the following findings tiny right-sided pleural effusion, patchy groundglass opacity in the posterior superior left upper lung underlying asbestosis exposure was suspected based on CT persistent reticulation and groundglass opacity noted in the posterior right upper lobe and right lower lobe for which acute infectious processes was entertained 5. GERD. Continue patient on the Prilosec 20 mg orally twice every day. 6. Hyperlipidemia. Continue low-cholesterol diet. 7. Diaphragmatic hernia. Stable at this point in time. 8. Enlarged prostate. Stable. 9. DVT prophylaxis. Lovenox 40 mg subcutaneously every 24 hours. 10. GI prophylaxis. Continue omeprazole 20 mg orally twice every day. 11. Patient is full code discussed with the patient. 12. Admit to inpatient. Estimate a length of stay 2 midnights.
[2016-08-09] MEDS ORDERED: MIRTAZAPINE 15 MG TAB PO SCH (21:00)
[2016-08-10] MEDS: methylPREDNISolone SOD SUCCI 125 MG/2 ML VIAL IV SCH ×2 (06:08→12:48)
[2016-08-10] MEDS: IPRATROPIUM-ALBUTEROL 3 ML NEB INHALATION SCH ×2 (07:20→11:51)
[2016-08-10 07:22] LABS: Glucose,Whole Blood 241 mg/dL (75-99)
[2016-08-10 07:27] VITALS: BP 141/63; TEMP 96.2
[2016-08-10] MEDS: metFORMIN 500 MG TAB PO SCH (07:44)
[2016-08-10] MEDS: PANTOPRAZOLE 40 MG TABLET PO SCH (07:44)
[2016-08-10] MEDS: INSULIN LISPRO (humaLOG) 300 UNIT/3 ML VIAL SQ SCH ×2 (07:45→12:51)
[2016-08-10 08:26] VITALS: PULSE 84
[2016-08-10] MEDS ORDERED: LINAGLIPTIN 5 MG TABLET PO SCH (09:00)
[2016-08-10] MEDS ORDERED: ASPIRIN 81 MG CHEW PO SCH (09:00)
--- NOTE | 2016-08-10 10:43 | US ---
EXAMINATION TYPE: US chest DATE OF EXAM: 08/10/2016 COMPARISON: x-ray chest 08/09/2016 CLINICAL HISTORY: rt pleural effusion. EXAM MEASUREMENTS: Right Pleural Effusion fluid pocket: 0.6 cm Right skin to fluid thickness: 1.9 cm Right side NOT marked for possible thoracentesis outside the dept. Pulmonologists are able to review the images in the patient?s EMR. IMPRESSIONS: Minimal right pleural effusion.
[2016-08-10] MEDS ORDERED: MULTIVITAMINS, THERA 1 EACH TAB PO SCH (12:00)
[2016-08-10] MEDS ORDERED: FERROUS SULFATE 325 MG TAB PO SCH (12:00)
[2016-08-10 12:04] LABS: Glucose,Whole Blood 256 mg/dL (75-99)
--- NOTE | 2016-08-10 13:31 | P.CNPUL ---
History of Present Illness Consult date: 08/10/16 Requesting physician: Adriana Domingo Reason for consult: dyspnea Chief complaint: Shortness of breath, cough, congestion History of present illness: This is a very pleasant 86-year-old gentleman who follows with Dr. Natarajan as his primary care physician. He has a history of diabetes mellitus, hyperlipidemia, osteoarthritis, gastroesophageal reflux disease, CVA/TIA. He also follows in our office for COPD and previous history of staph and MRSA pneumonia. He also has a history of lung cancer status post left upper lobectomy without chemo or radiation. No evidence of recurrence. He presented here on 08/09/2016 with complaints of increasing shortness of breath cough and yellow productive sputum. His chest x-ray revealed no acute pulmonary process there was some noted pleural effusion in the right lung base. Ultrasound revealed minimal effusion. Noted hiatal hernia. He was admitted for a COPD exacerbation. He is seen today in consultation on the regular medical floor. He is awake and alert in no acute distress. He is maintaining good O2 saturations in the 90s on room air. He's been afebrile. No leukocytosis. Hemodynamically stable. Blood and sputum cultures reveal no growth to date. He was initiated on bronchodilators, IV Solu-Medrol and empiric Levaquin. Review of Systems 14 point review of system was conducted. All negative other than as mentioned in HPI. Past Medical History Past Medical History: Asthma, Cancer, COPD, CVA/TIA, Diabetes Mellitus, GERD/ Reflux, Hyperlipidemia, Osteoarthritis (OA), Pneumonia, Prostate Disorder Additional Past Medical History / Comment(s): 2009 L lung cancer with sx, NIDDM type II, TIA in 2012, iron deficiency anemia, athritis bilateral hands/feet, hiatal hernia, rt side dominant. History of Any Multi-Drug Resistant Organisms: MRSA Date of last positivie culture/infection: 06/23/16 MDRO Source:: sputum Past Surgical History: Orthopedic Surgery, Tonsillectomy Additional Past Surgical History / Comment(s): 2/3 left lobectomy 2009-post op incisional infection and had debridements, colonoscopy/benign polypectomy, hemmoroidectomy, right shoulder arthrotomy. Past Anesthesia/Blood Transfusion Reactions: No Reported Reaction Past Psychological History: Depression Additional Psychological History / Comment(s): Pt resides with his spouse in a single story home that has 3 front proch steps. no pets in the home. no homecare services recieved. . He has a cane ,uses as needed. He drives short distances. He is independent. 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 Smoking Status: Former smoker Past Alcohol Use History: Occasional Additional Past Alcohol Use History / Comment(s): Pt started smoking in 1949 and quit in 1979. Past Drug Use History: None Reported - Past Family History Father Family Medical History: No Reported History Additional Family Medical History / Comment(s): Father at the age of 74yrs. Mother Family Medical History: CVA/TIA Additional Family Medical History / Comment(s): Mother was healthy and at the age of 80yrs. Sister(s) Family Medical History: Coronary Artery Disease (CAD), Myocardial Infarction ([place] ) Brother(s) Family Medical History: Neurologic Disorder Daughter(s) Family Medical History: No Reported History Son(s) Family Medical History: Cancer Medications and Allergies Home Medications Medication Instructions Recorded Confirmed Type Omeprazole [PriLOSEC] 20 mg PO AC-BID 11/21/13 08/09/16 History glipiZIDE [Glucotrol] 2.5 mg PO TID 11/21/13 08/09/16 History Aspirin 81 mg PO DAILY 06/23/16 08/09/16 History Ferrous Sulfate [Iron (65 MG 325 mg PO DAILY 06/23/16 08/09/16 History Elemental)] Ipratropium [place] [Atrovent Hfa] 2 puff INHALATION RT-TID 06/23/16 08/09/16 History Mirtazapine [Remeron] 7.5 mg PO HS 06/23/16 08/09/16 History Multivit-Min/FA/Lycopen/Lutein 1 tab PO DAILY 06/23/16 08/09/16 History [Centrum Silver Men Tablet] Saxagliptin HCl [Onglyza] 5 mg PO DAILY 06/23/16 08/09/16 History metFORMIN HCL 1,000 mg PO BID 06/23/16 08/09/16 History Allergies Allergy/AdvReac Type Severity Reaction Status Date / Time No Known Allergies Allergy Verified 08/09/16 10:02 Physical Exam Vitals: Vital Signs Temp Pulse Pulse Resp BP BP Pulse Ox 08/10/16 07:30 84 08/10/16 07:20 80 08/10/16 07:00 96.2 F L 72 16 141/63 93 L 08/09/16 23:00 97.4 F L 83 16 126/67 93 L 08/09/16 21:20 108/51 08/09/16 19:55 84 08/09/16 19:44 84 08/09/16 14:54 99.3 F 81 16 175/86 99 08/09/16 14:36 98.1 F 85 16 165/79 96 08/09/16 13:11 98.1 F 87 16 147/68 99 Intake and Output 08/09/16 08/10/16 08/10/16 22:59 06:59 14:59 Other: Voiding Method Toilet # Voids 1 2 GENERAL EXAM: Alert, active, comfortable in no apparent distress. HEAD: Normocephalic. EYES: Normal reaction of pupils, equal size. NOSE: Clear with pink turbinates. THROAT: No erythema or exudates. NECK: No masses, no JVD. CHEST: No chest wall deformity. LUNGS: Equal air entry with no crackles, wheeze, rhonchi or dullness. CVS: S1 and S2 normal with no audible murmurs, regular rhythm. ABDOMEN: No hepatosplenomegaly, normal bowel sounds, no guarding or rigidity. SPINE: No scoliosis or deformity SKIN: No rashes CENTRAL NERVOUS SYSTEM: No focal deficits, tone is normal in all 4 extremities. Extremities: There is no peripheral edema. No clubbing, no cyanosis. Peripheral pulses are intact. Results - Laboratory Findings CBC and BMP: 08/09/16 09:45 08/09/16 09:45 PT/INR, D-dimer PT 10.8 sec (9.0-12.0) 08/09/16 09:45 INR 1.1 (<1.1) 08/09/16 09:45 Abnormal lab findings: Abnormal Labs 08/09/16 08/09/16 08/09/16 09:45 09:45 09:45 RBC 4.23 L Hgb 12.5 L Hct 37.6 L Plt Count 118 L Lymphocytes # 0.8 L Glucose 159 H POC Glucose (mg/dL) Hemoglobin A1c 7.0 H Magnesium 1.3 L AST 15 L 08/09/16 08/09/16 08/09/16 15:33 16:50 20:33 RBC Hgb Hct Plt Count Lymphocytes # Glucose POC Glucose (mg/dL) 191 H 285 H 229 H Hemoglobin A1c Magnesium AST 08/10/16 08/10/16 06:44 11:58 RBC Hgb Hct Plt Count Lymphocytes # Glucose POC Glucose (mg/dL) 241 H 256 H Hemoglobin A1c Magnesium AST - Diagnostic Findings Chest x-ray: image reviewed Assessment and Plan Plan: Impression: #1 Acute exacerbation of chronic obstructive pulmonary disease, complicated by purulent tracheobronchitis. #2 Small right pleural effusion, no plans for thoracentesis. #3 History of lung cancer status post left upper lobectomy in 2009. No evidence of recurrence. #4 History of 38 years tobacco dependence however quit 37 years ago. #5 Diabetes mellitus. #6 History of CVA/TIA. #7 Osteoarthritis. #8 Gastroesophageal reflux disease. #9 History of depression. #10 History of iron deficiency anemia. #11 Hiatal hernia. Plan: The patient was seen and evaluated by Dr. Anderson. His chest x-ray labs and ultrasound were reviewed. There is no clear evidence of pneumonia at this time. The patient has improved and nearly back to his baseline and could be discharged home today with a prednisone taper and complete his course of Levaquin. He'll be seen in our office in 1-2 weeks' time. We'll repeat a chest x-ray then. He is however encouraged to call sooner with any recurrence of symptoms or other questions or concerns. Time with Patient: Greater than 30
[2016-08-10] MEDS ORDERED: LEVOFLOXACIN 500 MG TAB PO SCH (14:00)
[2016-08-10 14:18] VITALS: BMI 22.1
--- NOTE | 2016-08-10 15:46 | P.DS ---
Providers Date of admission: 08/09/16 13:27 Expected date of discharge: 08/10/16 Attending physician: Adriana Domingo Consults: 08/09/16 13:22 Consult Physician Routine Consulting Provider: Stacey Turcios Consult Reason/Comments: COPD Do you want consulting provider notified?: Yes Primary care physician: Jasmin Natarajan [facility] Course: This is an 86-year-old male patient of Dr. Delgado Turcios with a previous medical history significant for diabetes mellitus type 2, hyperkalemia , moderate COPD, lung cancer status post partial lobectomy, GERD, recent hospitalization last June 23 until June 27 for MRSA right lower lobe pneumonia with right pleural effusion, COPD without any exacerbation and was started to include a normal barium swallowing evaluation as well as speech evaluation for which recommendation was to go home with Augmentin for 14 days, Bactrim for 14 days, and an unrestricted diet. He comes back in with shortness of breath and cough, mainly clear. Currently yellow green sputum, patient does not feel any better with nebulized treatments, he's been sick for 3 days prior to admission, patient does not have any O2 requirements prior to admission. No recent sick contacts except for the with upper respiratory, no recent foreign travels. Patient denies any diarrhea or any other GI pathology In the emergency room he was evaluated for chest x-ray was performed showing hiatal hernia and postsurgical changes left perihilar area right pleural effusion is present 08/10: Patient is breathing status is improved and he would like to go home today. Steroids decreased and Dr. Anderson has cleared him for discharge. Dr. Rubio did provide him with a Levaquin prescription and plan for prednisone taper. Patient will be discharged home today in stable condition. Discharge diagnoses: 1. Moderate COPD with exacerbation and right pleural effusion and acute bronchitis. 2 . Diabetes mellitus type 2. 4. History of lung cancer status post partial resection. 5. GERD. 6. Hyperlipidemia. 7. Diaphragmatic hernia. 8. Enlarged prostate. Discharge plan: Return home Impression and plan of care have been directed as dictated by the signing physician. Renita Barger nurse practitioner acting as scribe for signing physician. Patient Condition at Discharge: Good Plan - Discharge Summary New Discharge Prescriptions: New predniSONE 0 mg PO DIRECTED #40 tab Continue Omeprazole [PriLOSEC] 20 mg PO AC-BID glipiZIDE [Glucotrol] 2.5 mg PO TID Mirtazapine [Remeron] 7.5 mg PO HS Ipratropium [place] [Atrovent Hfa] 2 puff INHALATION RT-TID Multivit-Min/FA/Lycopen/Lutein [Centrum Silver Men Tablet] 1 tab PO DAILY Ferrous Sulfate [Iron (65 MG Elemental)] 325 mg PO DAILY metFORMIN HCL 1,000 mg PO BID Aspirin 81 mg PO DAILY Saxagliptin HCl [Onglyza] 5 mg PO DAILY Budesonide [Pulmicort] 0.5 mg INHALATION RT-BID #60 Discharge Medication List Omeprazole [PriLOSEC] 20 mg PO AC-BID 11/21/13 [History] glipiZIDE [Glucotrol] 2.5 mg PO TID 11/21/13 [History] Aspirin 81 mg PO DAILY 06/23/16 [History] Ferrous Sulfate [Iron (65 MG Elemental)] 325 mg PO DAILY 06/23/16 [History] Ipratropium [place] [Atrovent Hfa] 2 puff INHALATION RT-TID 06/23/16 [History] Mirtazapine [Remeron] 7.5 mg PO HS 06/23/16 [History] Multivit-Min/FA/Lycopen/Lutein [Centrum Silver Men Tablet] 1 tab PO DAILY [History] Saxagliptin HCl [Onglyza] 5 mg PO DAILY 06/23/16 [History] metFORMIN HCL 1,000 mg PO BID 06/23/16 [History] Budesonide [Pulmicort] 0.5 mg INHALATION RT-BID #60 08/10/16 [Rx] predniSONE 0 mg PO DIRECTED #40 tab 08/10/16 [Rx] Follow up Appointment(s)/Referral(s): Juan C Anderson MD [STAFF PHYSICIAN] - 08/24/16 11:15 am Jasmin Natarajan MD [Primary Care Provider] - 08/16/16 4:15 pm Patient Instructions/Handouts: COPD (Chronic Obstructive Pulmonary Disease) (DC ) Activity/Diet/Wound Care/Special Instructions: Cardiac diet. Discharge Disposition: HOME SELF-CARE
[2016-08-10] MEDS ORDERED: methylPREDNISolone SOD SUCCI 40 MG/ML 1 ML VIAL IV SCH (18:00)
== END 2016-08-10 15:23 | disposition home or self-care (01) | DRG 191 ==
LOC: EC 08:58 → 4MS4W 13:27
PROVIDERS: ADMIT Family Medicine; ATTEND Family Medicine
DX: J44.0 Chronic obstructive pulmonary disease with (acute) lower respiratory infection (principal); J90 Pleural effusion, not elsewhere classified; E11.9 Type 2 diabetes mellitus without complications; J20.9 Acute bronchitis, unspecified; J44.1 Chronic obstructive pulmonary disease with (acute) exacerbation; M19.071 Primary osteoarthritis, right ankle and foot; K21.9 Gastro-esophageal reflux disease without esophagitis; E78.5 Hyperlipidemia, unspecified; M19.072 Primary osteoarthritis, left ankle and foot; M19.041 Primary osteoarthritis, right hand; M19.042 Primary osteoarthritis, left hand; I49.3 Ventricular premature depolarization; N40.0 Benign prostatic hyperplasia without lower urinary tract symptoms; F32.9 Major depressive disorder, single episode, unspecified; K44.9 Diaphragmatic hernia without obstruction or gangrene; Z86.73 Personal history of transient ischemic attack (TIA), and cerebral infarction without residual deficits; Z86.14 Personal history of Methicillin resistant Staphylococcus aureus infection; Z79.82 Long term (current) use of aspirin; Z79.899 Other long term (current) drug therapy; Z79.84 Long term (current) use of oral hypoglycemic drugs; Z90.2 Acquired absence of lung [part of]; Z82.49 Family history of ischemic heart disease and other diseases of the circulatory system; Z82.0 Family history of epilepsy and other diseases of the nervous system; Z82.3 Family history of stroke; Z87.891 Personal history of nicotine dependence; Z85.118 Personal history of other malignant neoplasm of bronchus and lung; Z71.3 Dietary counseling and surveillance; Z87.01 Personal history of pneumonia (recurrent); Z86.010 Personal history of colon polyps; Z86.19 Personal history of other infectious and parasitic diseases; Z80.42 Family history of malignant neoplasm of prostate; Z79.2 Long term (current) use of antibiotics; Z77.090 Contact with and (suspected) exposure to asbestos
CPT/HCPCS: 36415; 71020; 76604; 80053; 82550; 82553; 83036; 83735; 83880; 84484; 85025; 85610; 85730; 87040; 87070; 87205; 93005; 94640; 96361; 96365; 96375; 99285

== ENCOUNTER 2016-09-18 10:21 | Inpatient (IN) | payer MEDICARE, OTHER ==
[2016-09-18] MEDS ORDERED: SODIUM CHLORIDE 0.9% 1,000 ML IV STA (10:48)
--- NOTE | 2016-09-18 10:51 | ED ---
General Adult HPI - General Chief complaint: Neuro Symptoms/Deficit Stated complaint: Right-sided weakness Time Seen by Provider: 09/18/16 10:42 Source: patient, family, RN notes reviewed Mode of arrival: ambulatory Limitations: no limitations - History of Present Illness Initial comments: Patient is a pleasant 86-year-old male presenting to the emergency Department with concern for right-sided weakness. Onset was when patient awoke from sleep yesterday morning. Symptoms have been persistent since that time. No confusion. No speech problems. Patient had similar symptoms on the left side years ago associated with TIA. Patient feels his right arm and his right leg are somewhat weak. No facial weakness noted. - Related Data Home Medications Medication Instructions Recorded Confirmed Omeprazole [PriLOSEC] 20 mg PO AC-BID 11/21/13 09/18/16 glipiZIDE [Glucotrol] 2.5 mg PO TID 11/21/13 09/18/16 Aspirin 81 mg PO DAILY 06/23/16 09/18/16 Ferrous Sulfate [Iron (65 MG 325 mg PO DAILY 06/23/16 09/18/16 Elemental)] Ipratropium [place] [Atrovent Hfa] 2 puff INHALATION RT-TID 06/23/16 09/18/16 Mirtazapine [Remeron] 7.5 mg PO HS 06/23/16 09/18/16 Multivit-Min/FA/Lycopen/Lutein 1 tab PO DAILY 06/23/16 09/18/16 [Centrum Silver Men Tablet] Saxagliptin HCl [Onglyza] 5 mg PO DAILY 06/23/16 09/18/16 metFORMIN HCL 1,000 mg PO BID 06/23/16 09/18/16 Fluticasone Nasal [place] [Flonase 2 spr EA NOSTRIL DAILY 09/18/16 09/18/16 Nasal [place]] Previous Rx's Medication Instructions Recorded Budesonide [Pulmicort] 0.5 mg INHALATION RT-BID #60 08/10/16 Allergies Allergy/AdvReac Type Severity Reaction Status Date / Time No Known Allergies Allergy Verified 09/18/16 11:12 Review of Systems ROS Statement: Those systems with pertinent positive or pertinent negative responses have been documented in the HPI. ROS Other: All systems not noted in ROS Statement are negative. Constitutional: Denies: fever Eyes: Denies: eye pain ENT: Denies: ear pain Respiratory: Denies: cough Cardiovascular: Denies: chest pain Endocrine: Denies: fatigue Gastrointestinal: Denies: abdominal pain Genitourinary: Denies: dysuria Musculoskeletal: Denies: back pain Skin: Denies: rash Neurological: Reports: weakness. Denies: headache, numbness, paresthesias, confusion, vertigo Past Medical History Past Medical History: Asthma, Cancer, COPD, CVA/TIA, Diabetes Mellitus, GERD/ Reflux, Hyperlipidemia, Osteoarthritis (OA), Pneumonia, Prostate Disorder Additional Past Medical History / Comment(s): 2009 L lung cancer with sx, NIDDM type II, TIA in 2012, iron deficiency anemia, athritis bilateral hands/feet, hiatal hernia, rt side dominant. History of Any Multi-Drug Resistant Organisms: MRSA Date of last positivie culture/infection: 06/23/16 MDRO Source:: sputum Past Surgical History: Orthopedic Surgery, Tonsillectomy Additional Past Surgical History / Comment(s): 2/3 left lobectomy 2009-post op incisional infection and had debridements, colonoscopy/benign polypectomy, hemmoroidectomy, right shoulder arthrotomy. Past Anesthesia/Blood Transfusion Reactions: No Reported Reaction Past Psychological History: Depression Smoking Status: Former smoker Past Alcohol Use History: Occasional Past Drug Use History: None Reported - Past Family History Father Family Medical History: No Reported History Additional Family Medical History / Comment(s): Father at the age of 74yrs. Mother Family Medical History: CVA/TIA Additional Family Medical History / Comment(s): Mother was healthy and at the age of 80yrs. Sister(s) Family Medical History: Coronary Artery Disease (CAD), Myocardial Infarction ([place] ) Brother(s) Family Medical History: Neurologic Disorder Daughter(s) Family Medical History: No Reported History Son(s) Family Medical History: Cancer General Exam Limitations: no limitations General appearance: alert, in no apparent distress Head exam: Present: atraumatic Eye exam: Present: normal appearance, PERRL, EOMI. Absent: nystagmus ENT exam: Present: normal oropharynx Neck exam: Present: normal inspection Respiratory exam: Present: normal lung sounds bilaterally Cardiovascular Exam: Present: regular rate, normal rhythm GI/Abdominal exam: Present: soft. Absent: tenderness Extremities exam: Present: normal inspection Neurological exam: Present: alert Expanded Speech: Present: fluid speech Cranial nerves: EOM's Intact: Normal, Facial Sensation: Normal Cerebellar function: Finger to Nose: Abnormal Right (Patient is slightly off with the right side) Sensory exam: Upper Extremity Light Touch: Normal, Lower Extremity Light Touch: Normal Motor strength exam: RUE: 5, LUE: 5, RLE: 4, LLE: 5 Eye Response: (4) open spontaneously Motor Response: (6) obeys commands Verbal Response: (5) oriented Psychiatric exam: Present: normal affect, normal mood Skin exam: Present: normal color Course Vital Signs 09/18/16 09/18/16 10:38 11:50 Temperature 97.5 F L Pulse Rate 76 72 Respiratory 17 16 Rate Blood Pressure 160/67 137/66 O2 Sat by Pulse 96 99 Oximetry EKG Findings - EKG Comments: EKG Findings:: Normal sinus rhythm 77. MA 176. QRS 82. QT 406. QTc 459. Left axis. Normal QRS. No acute ST change. Medical Decision Making - Medical Decision Making Patient reevaluated and resting comfortably in bed. Patient and family updated on results and plan. Case was discussed in detail with Dr. Domingo, who will admit for Dr. Natarajan. She recommends both aspirin and Plavix. - Lab Data Result diagrams: 09/18/16 11:14 09/18/16 11:14 Lab Results 09/18/16 09/18/16 09/18/16 Range/Units 11:14 11:14 11:14 WBC 4.9 (3.8-10.6) k/uL RBC 4.09 L (4.30-5.90) m/uL Hgb 12.1 L (13.0-17.5) gm/dL Hct 37.4 L (39.0-53.0) % MCV 91.4 (80.0-100.0) fL MCH 29.5 (25.0-35.0) pg MCHC 32.3 (31.0-37.0) g/dL RDW 14.6 (11.5-15.5) % Plt Count 136 L (150-450) k/uL Neutrophils % 70 % Lymphocytes % 18 % Monocytes % 6 % Eosinophils % 3 % Basophils % 1 % Neutrophils # 3.4 (1.3-7.7) k/uL Lymphocytes # 0.9 L (1.0-4.8) k/uL Monocytes # 0.3 (0-1.0) k/uL Eosinophils # 0.2 (0-0.7) k/uL Basophils # 0.0 (0-0.2) k/uL PT (9.0-12.0) sec INR (<1.2) APTT (22.0-30.0) sec Sodium 139 (137-145) mmol/L Potassium 4.2 (3.5-5.1) mmol/L Chloride 104 (98-107) mmol/L Carbon Dioxide 27 (22-30) mmol/L Anion Gap 8 mmol/L BUN 18 (9-20) mg/dL Creatinine 0.87 (0.66-1.25) mg/dL Est GFR (MDRD) Af Amer >60 (>60 ml/min/1.73 sqM) Est GFR (MDRD) Non-Af >60 (>60 ml/min/1.73 sqM) Glucose 196 H (74-99) mg/dL Calcium 8.8 (8.4-10.2) mg/dL Total Bilirubin 0.2 (0.2-1.3) mg/dL AST 15 L (17-59) U/L ALT 29 (21-72) U/L Alkaline Phosphatase 68 (38-126) U/L Total Creatine Kinase 38 L (55-170) U/L Total Protein 6.0 L (6.3-8.2) g/dL Albumin 3.5 (3.5-5.0) g/dL 09/18/16 Range/Units 11:14 WBC (3.8-10.6) k/uL RBC (4.30-5.90) m/uL Hgb (13.0-17.5) gm/dL Hct (39.0-53.0) % MCV (80.0-100.0) fL MCH (25.0-35.0) pg MCHC (31.0-37.0) g/dL RDW (11.5-15.5) % Plt Count (150-450) k/uL Neutrophils % % Lymphocytes % % Monocytes % % Eosinophils % % Basophils % % Neutrophils # (1.3-7.7) k/uL Lymphocytes # (1.0-4.8) k/uL Monocytes # (0-1.0) k/uL Eosinophils # (0-0.7) k/uL Basophils # (0-0.2) k/uL PT 10.7 (9.0-12.0) sec INR 1.1 (<1.2) APTT 25.0 (22.0-30.0) sec Sodium (137-145) mmol/L Potassium (3.5-5.1) mmol/L Chloride (98-107) mmol/L Carbon Dioxide (22-30) mmol/L Anion Gap mmol/L BUN (9-20) mg/dL Creatinine (0.66-1.25) mg/dL Est GFR (MDRD) Af Amer (>60 ml/min/1.73 sqM) Est GFR (MDRD) Non-Af (>60 ml/min/1.73 sqM) Glucose (74-99) mg/dL Calcium (8.4-10.2) mg/dL Total Bilirubin (0.2-1.3) mg/dL AST (17-59) U/L ALT (21-72) U/L Alkaline Phosphatase (38-126) U/L Total Creatine Kinase (55-170) U/L Total Protein (6.3-8.2) g/dL Albumin (3.5-5.0) g/dL - Radiology Data Radiology results: report reviewed (Computed tomography scan the brain shows no acute process.), image reviewed (Two-view chest x-ray shows possible stop changes. Scarring, interstitial lung disease. Cannot exclude basilar pneumonia. Pleural thickening.) Disposition Clinical Impression: Cerebrovascular accident Disposition: ADMITTED IP TO THIS [facility] Referrals: Jasmin Natarajan MD [Primary Care Provider] - 1-2 days Decision Time: 12:14
[2016-09-18 11:29] LABS: Basophils % (A) 1 %; CH 29.6; CHCM 32.5; Eosinophils # (A) 0.2 k/uL (0-0.7); Eosinophils % (A) 3 %; HCT 37.4 % (39.0-53.0); HDW 2.55; HGB 12.1 gm/dL (13.0-17.5); Luc # (Auto) 0.11; Luc % (Auto) 2; Lymphocytes # (A) 0.9 k/uL (1.0-4.8); Lymphocytes % (A) 18 %; MCH 29.5 pg (25.0-35.0); MCHC 32.3 g/dL (31.0-37.0); MCV 91.4 fL (80.0-100.0); Mean Platelet Volume 10.4; Monocytes # (A) 0.3 k/uL (0-1.0); Monocytes % (A) 6 %; Neutrophils # (A) 3.4 k/uL (1.3-7.7); Neutrophils % (A) 70 %; RBC 4.09 m/uL (4.30-5.90); RDW 14.6 % (11.5-15.5); WBC 4.9 k/uL (3.8-10.6); WBC (Perox) 4.82
[2016-09-18 11:39] LABS: ALT 29 U/L (21-72); AST 15 U/L (17-59); Alkaline Phosphatase 68 U/L (38-126); Anion Gap 8 mmol/L; Blood Urea Nitrogen 18 mg/dL (9-20); Calcium 8.8 mg/dL (8.4-10.2); Carbon Dioxide 27 mmol/L (22-30); Chloride 104 mmol/L (98-107); Glucose 196 mg/dL (74-99); Non-African American GFR(MDRD) >60 (>60 ml/min/1.73 sqM); Potassium 4.2 mmol/L (3.5-5.1); Sodium 139 mmol/L (137-145); Total Bilirubin 0.2 mg/dL (0.2-1.3)
[2016-09-18 11:41] LABS: INR 1.1 (<1.2); Prothrombin Time 10.7 sec (9.0-12.0)
--- NOTE | 2016-09-18 11:47 | CT ---
EXAMINATION TYPE: CT brain wo con DATE OF EXAM: 09/18/2016 COMPARISON: Previous study dated 11/21/2013. HISTORY: Patient complains of right side weakness. CT DLP: 750.9 mGycm Automated exposure control for dose reduction was used. FINDINGS: There are mild, generalized changes of sulcal prominence and ventriculomegaly, compatible with atroph ic change. There is diffuse periventricular white matter lucency, compatible with chronic white matte r ischemic change. There is no acute focal lesion, mass effect or midline shift identified. I do not see evidence of intracranial blood. Visualized portions of the paranasal sinuses and mastoids are clear. No depressed skull fracture is s een. IMPRESSION: 1. NO ACUTE INTRACRANIAL ABNORMALITY. 2. MILD ATROPHIC CHANGE. 3. CHRONIC WHITE MATTER ISCHEMIC CHANGE.
[2016-09-18 11:50] LABS: Creatine Kinase 38 U/L (55-170)
--- NOTE | 2016-09-18 11:54 | XR ---
EXAMINATION TYPE: XR chest 2V DATE OF EXAM: 09/18/2016 COMPARISON: Prior chest x-ray 08/09/2016 HISTORY: Altered mental status TECHNIQUE: Frontal and lateral views of the chest are obtained. FINDINGS: Persistent abnormal chest x-ray findings are noted. Postop changes are noted status post l obectomy on the left. There is no pneumothorax or sizable pleural effusion evident. Emphysematous khurram nges, pleural thickening and scarring within the right right lung is again noted, there is a large hi atal hernia with right sided intrathoracic stomach. Difficult to exclude days or airspace disease on the right. Bronchiectatic changes likely present at the right lung base. IMPRESSION: Postop changes. Scarring, interstitial lung disease, difficult to exclude basilar pneumo marquez. Pleural thickening and additional findings above.
[2016-09-18 12:04] LABS: Creatine Kinase MB 1.4 ng/mL (0.0-2.4); Troponin I <0.012 ng/mL (0.000-0.034)
[2016-09-18] MEDS ORDERED: ASPIRIN 325 MG TAB PO STA (12:14)
[2016-09-18] MEDS ORDERED: CLOPIDOGREL 75 MG TAB PO STA (12:26)
[2016-09-18 13:44] VITALS: RESP 18
--- NOTE | 2016-09-18 14:31 | US ---
EXAMINATION TYPE: US carotid duplex BILAT DATE OF EXAM: 09/18/2016 COMPARISON: NONE CLINICAL HISTORY: Stenosis. TIA EXAM MEASUREMENTS: RIGHT: Peak Systolic Velocity (PSV) cm/sec ----- Right CCA: 65.8 ----- Right ICA: 118.4 ----- Right ECA: 67.3 ICA/CCA ratio: 1.8 RIGHT: End Diastole cm/sec ----- Right CCA: 14.2 ----- Right ICA: 26.6 ----- Right ECA: 0 LEFT: Peak Systolic Velocity (PSV) cm/sec ----- Left CCA: 76.1 ----- Left ICA: 84.6 ----- Left ECA: 148.6 ICA/CCA ratio: 1.1 LEFT: End Diastole cm/sec ----- Left CCA: 18.2 ----- Left ICA: 18.2 ----- Left ECA: 8.8 VERTEBRALS (direction of flow): Right Vertebral: Antegrade Left Vertebral: Antegrade No significant stenosis visualized IMPRESSION: 1. I DO NOT SEE EVIDENCE OF A HEMODYNAMICALLY SIGNIFICANT STENOSIS IN EITHER INTERNAL CAROTID ARTERY. 2. ELEVATED LEFT-SIDED ECA FLOW VELOCITY. Criteria for Assigning % of Stenosis / Diameter reduction (Estimation based on the indirect measurements of the internal carotid artery velocities (ICA PSV). 1. Normal (no stenosis)=ICA PSV < 125 cm/s: ratio < 2.0: ICA EDV<40 cm/s. 2. Less than 50% stenosis=ICA PSV < 125 cm/s: ratio < 2.0: ICA EDV<40 cm/s. 3. 50 to 69% stenosis=ICA PSV of 125 to 230 cm/s: ration 2.0 ? 4.0: ICA EDV 40-100 cm/s. 4. Greater than 70% stenosis to near occlusion= ICA PSV > 230 cm/s: ratio > 4.0: ICA EDV > 100 cm/s. 5. Near occlusion= ICA PSV velocities may be low or undetectable: variable ratio and ICA EDV. 6. Total occlusion=unable to detect flow.
[2016-09-18] MEDS: SODIUM CHLORIDE 0.9% 1,000 ML IV SCH (14:50)
[2016-09-18 16:57] LABS: Glucose,Whole Blood 65 mg/dL (75-99)
--- NOTE | 2016-09-18 16:57 | P.HPIM ---
History of Present Illness H&P Date: 09/18/16 Chief Complaint: Right-sided weakness This is an 86-year-old male patient of Dr. Delgado Turcios with a previous medical history significant for diabetes mellitus type 2, hyperkalemia , moderate COPD, lung cancer status post partial lobectomy, GERD, recent hospitalization last June 23 until June 27 for MRSA right lower lobe pneumonia with right pleural effusion, COPD TIAs with left-sided location and no residual deficits, admitted to emergency room with acute complaints off right-sided weakness which started one day prior to admission. 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 Patient remains to be concerned and was subsequently seen in the emergency room for evaluation. Patient denies any trauma or hand swelling, no neck pain, symptoms have resolved for the right- sided weakness except for the residual weakness on the fourth and fifth most likely secondary to ulnar pathology or cervical pathology In the emergency room with the above complaints, CTA of the brain mild atrophic change no acute intracranial abnormality chronic white matter ischemic changes. EKG shows normal sinus rhythm normal EKG no st-T changes noted, Doppler studies shows no significant hemodynamically significant stenosis on either internal carotid artery, this elevated left-sided external carotid artery flow velocity made with Dr. Li neurology with MRI of the brain and MRI of the cervical neck Review of Systems Constitutional: Reports as per HPI, Reports lethargy, Reports malaise, Denies anorexia, Denies chills, Denies chronic headaches, Denies chronic pain, Denies daytime sleepiness, Denies fatigue, Denies fever, Denies night sweats, Denies poor appetite, Denies sweats, Denies weakness, Denies weight gain, Denies weight loss Ears, nose, mouth and throat: Reports as per HPI, Denies ant. neck pain, Denies bleeding gums, Denies dental pain, Denies dysphagia, Denies epistaxis, Denies headache, Denies hoarseness, Denies mouth pain, Denies nasal congestion, Denies nasal discharge, Denies neck fullness/pressure, Denies neck lump, Denies nose pain, Denies odynophagia, Denies post-nasal drip, Denies sinus pain, Denies sinus pressure, Denies swelling in mouth, Denies swelling in throat, Denies sore throat, Denies vertigo, Denies voice changes Cardiovascular: Reports as per HPI, Denies chest pain, Denies claudication, Denies decreased exercise tolerance, Denies dyspnea on exertion, Denies edema, Denies high blood pressure, Denies irregular heart beat, Denies leg edema, Denies lightheadedness, Denies orthopnea, Denies palpitations, Denies paroxysmal nocturnal dyspnea, Denies phlebitis, Denies rapid heart beat, Denies shortness of breath, Denies syncope Respiratory: Reports as per HPI, Reports home oxygen Gastrointestinal: Reports as per HPI Genitourinary: Reports as per HPI, Denies decreased libido, Denies difficulties fathering child, Denies discharge, Denies dysuria, Denies erectile dysfunction, Denies flank pain, Denies genital pain, Denies genital sores, Denies hematuria, Denies impotence, Denies incontinence, Denies kidney stones, Denies nocturia, Denies polyuria, Denies testicular lump, Denies testicular pain, Denies urinary frequency, Denies urinary hesitancy, Denies urinary retention Musculoskeletal: Reports as per HPI, Denies arm numbness/tingling, Denies atrophy, Denies fractures, Denies frequent falls, Denies gait dysfunction, Denies hot joints, Denies leg numbness/tingling, Denies limitation of motion, Denies loss of height, Denies low back pain, Denies morning stiffness, Denies muscle cramps, Denies muscle weakness, Denies myalgias, Denies neck pain, Denies neck stiffness, Denies prior amputations, Denies redness of joints, Denies shooting arm pain, Denies shooting leg pain Integumentary: Reports as per HPI, Denies acne, Denies boils, Denies brittle nails, Denies change in hair/nails, Denies color changes, Denies darkening of skin, Denies depigmentation, Denies dryness, Denies foot/leg ulcers, Denies growths, Denies hirsutism, Denies lesions, Denies onychomycosis, Denies pruritus , Denies rash, Denies sores, Denies striae, Denies unusual bruising, Denies wounds Neurological: Reports as per HPI, Denies aphasia, Denies ataxia, Denies balance difficulties, Denies burning pain, Denies change in mentation, Denies change in smell/taste, Denies change in speech, Denies confusion, Denies convulsions, Denies double vision, Denies gait dysfunction, Denies head injury, Denies headaches, Denies hearing difficulties, Denies lack of coordination, Denies loss of vision, Denies memory loss, Denies migraines, Denies motor disturbance, Denies numbness, Denies paralysis, Denies paresthesias, Denies seizures, Denies sensory deficit, Denies spasticity, Denies syncope, Denies tic, Denies tingling , Denies transient paralysis, Denies tremors, Denies vertigo, Denies weakness, Denies visual changes Psychiatric: Reports as per HPI, Denies anhedonia, Denies anxiety, Denies anxiety attacks, Denies change in appetite, Denies change in libido, Denies change in sleep habits, Denies confusion, Denies depression, Denies difficulty concentrating, Denies disorientation, Denies hallucinations, Denies hopelessness , Denies hypersomnia, Denies insomnia, Denies irritability, Denies memory loss, Denies mood swings, Denies paranoia, Denies sadness/tearfulness, Denies sleep disturbances, Denies suicidal ideation Endocrine: Reports as per HPI, Denies cold intolerance, Denies deepening of the voice, Denies excessive sweating, Denies excessive thirst, Denies fatigue, Denies flushing, Denies heat intolerance, Denies high blood sugars, Denies increase in ring/shoe/hat size, Denies low blood sugars, Denies nocturia, Denies palpitations, Denies polydipsia, Denies polyphagia, Denies polyuria, Denies proptosis, Denies recent glucocorticoid use, Denies thyroid mass, Denies weight change Hematologic/Lymphatic: Reports as per HPI, Denies easy bleeding, Denies easy bruising, Denies lymphadenopathy, Denies lymphedema, Denies thrombophilia Allergic/Immunologic: Reports as per HPI, Denies allergic rhinitis, Denies anaphylaxis, Denies angioedema, Denies gluten intolerance, Denies persistent infections, Denies seasonal allergies, Denies urticaria, Denies wheezing Past Medical History Past Medical History: Asthma, Cancer, COPD, CVA/TIA, Diabetes Mellitus, GERD/ Reflux, Hyperlipidemia, Osteoarthritis (OA), Pneumonia, Prostate Disorder Additional Past Medical History / Comment(s): 2010 L lung cancer with sx, NIDDM type II, TIA in 2012, iron deficiency anemia, athritis bilateral hands/feet, hiatal hernia, rt side dominant. History of Any Multi-Drug Resistant Organisms: MRSA Date of last positivie culture/infection: 06/23/16 MDRO Source:: sputum Past Surgical History: Orthopedic Surgery, Tonsillectomy Additional Past Surgical History / Comment(s): 2/3 left lobectomy 2009-post op incisional infection and had debridements, colonoscopy/benign polypectomy, hemmoroidectomy, right shoulder arthrotomy. Past Anesthesia/Blood Transfusion Reactions: No Reported Reaction Smoking Status: Former smoker - Past Family History Father Family Medical History: No Reported History Additional Family Medical History / Comment(s): Father at the age of 74yrs. Mother Family Medical History: CVA/TIA Additional Family Medical History / Comment(s): Mother was healthy and at the age of 80yrs. Sister(s) Family Medical History: Coronary Artery Disease (CAD), Myocardial Infarction (NE ) Brother(s) Family Medical History: Neurologic Disorder Daughter(s) Family Medical History: No Reported History Son(s) Family Medical History: Cancer Medications and Allergies Home Medications Medication Instructions Recorded Confirmed Type Omeprazole [PriLOSEC] 20 mg PO AC-BID 11/21/13 09/18/16 History glipiZIDE [Glucotrol] 2.5 mg PO TID 11/21/13 09/18/16 History Aspirin 81 mg PO DAILY 06/23/16 09/18/16 History Ferrous Sulfate [Iron (65 MG 325 mg PO DAILY 06/23/16 09/18/16 History Elemental)] Ipratropium [place] [Atrovent Hfa] 2 puff INHALATION RT-TID 06/23/16 09/18/16 History Mirtazapine [Remeron] 7.5 mg PO HS 06/23/16 09/18/16 History Multivit-Min/FA/Lycopen/Lutein 1 tab PO DAILY 06/23/16 09/18/16 History [Centrum Silver Men Tablet] Saxagliptin HCl [Onglyza] 5 mg PO DAILY 06/23/16 09/18/16 History metFORMIN HCL 1,000 mg PO BID 06/23/16 09/18/16 History Fluticasone Nasal [place] [Flonase 2 spr EA NOSTRIL DAILY 09/18/16 09/18/16 History Nasal [place]] Allergies Allergy/AdvReac Type Severity Reaction Status Date / Time No Known Allergies Allergy Verified 09/18/16 11:12 Physical Exam Vitals: Vital Signs Temp Pulse Pulse Resp BP BP Pulse Ox 09/18/16 15:00 97.7 F 66 18 166/74 98 09/18/16 14:23 98.0 F 65 18 153/70 100 09/18/16 13:48 72 18 140/94 99 09/18/16 13:15 98.0 F 64 18 131/65 99 09/18/16 12:46 75 16 134/65 100 09/18/16 12:15 97.8 F 78 20 136/65 99 09/18/16 11:50 72 16 137/66 99 09/18/16 10:38 97.5 F L 76 17 160/67 96 Intake and Output 09/18/16 09/18/16 09/18/16 06:59 14:59 22:59 Intake Total 100 Balance 100 Intake: Intake, IV Titration 100 Amount Sodium Chloride 0.9% 1, 100 000 ml @ 100 mls/hr IV . Q10H [facility] Rx#:[id number] Other: Weight 68.039 kg Patient Weight 09/19/16 06:59 Weight 68.039 kg - Constitutional General appearance: cooperative, no acute distress - EENT Eyes: anicteric sclerae, EOMI, PERRLA, dentition normal, normal appearance ENT: hearing grossly normal, NA/AT, normal oropharynx - Neck Neck: normal ROM - Respiratory Respiratory: bilateral: CTA, negative: diminished, dullness, rales, rhonchi, wheezing - Cardiovascular Rhythm: regular Heart sounds: normal: S1, S2 Abnormal Heart Sounds: no systolic murmur, no diastolic murmur, no rub, no S3 Gallop, no S4 Gallop, no click, no other - Gastrointestinal General gastrointestinal: normal bowel sounds, soft - Integumentary Integumentary: normal, normal turgor - Neurologic Neurologic: CNII-XII intact - Musculoskeletal Musculoskeletal: strength equal bilaterally - Psychiatric Psychiatric: A&O x's 3, appropriate affect, intact judgment & insight Results CBC & Chem 7: 09/18/16 11:14 09/18/16 11:14 Labs: Abnormal Lab Results - Last 24 Hours (Table) 09/18/16 09/18/16 09/18/16 Range/Units 11:14 11:14 11:14 RBC 4.09 L (4.30-5.90) m/uL Hgb 12.1 L (13.0-17.5) gm/dL Hct 37.4 L (39.0-53.0) % Plt Count 136 L (150-450) k/uL Lymphocytes # 0.9 L (1.0-4.8) k/uL Glucose 196 H (74-99) mg/dL AST 15 L (17-59) U/L Total Creatine Kinase 38 L (55-170) U/L Total Protein 6.0 L (6.3-8.2) g/dL Laboratory Results WBC 4.9 k/uL (3.8-10.6) 09/18/16 11:14 RBC 4.09 m/uL (4.30-5.90) L 09/18/16 11:14 Hgb 12.1 gm/dL (13.0-17.5) L 09/18/16 11:14 Hct 37.4 % (39.0-53.0) L 09/18/16 11:14 MCV 91.4 fL (80.0-100.0) 09/18/16 11:14 MCH 29.5 pg (25.0-35.0) 09/18/16 11:14 MCHC 32.3 g/dL (31.0-37.0) 09/18/16 11:14 RDW 14.6 % (11.5-15.5) 09/18/16 11:14 Plt Count 136 k/uL (150-450) L 09/18/16 11:14 Neutrophils % 70 % 09/18/16 11:14 Lymphocytes % 18 % 09/18/16 11:14 Monocytes % 6 % 09/18/16 11:14 Eosinophils % 3 % 09/18/16 11:14 Basophils % 1 % 09/18/16 11:14 Neutrophils # 3.4 k/uL (1.3-7.7) 09/18/16 11:14 Lymphocytes # 0.9 k/uL (1.0-4.8) L 09/18/16 11:14 Monocytes # 0.3 k/uL (0-1.0) 09/18/16 11:14 Eosinophils # 0.2 k/uL (0-0.7) 09/18/16 11:14 Basophils # 0.0 k/uL (0-0.2) 09/18/16 11:14 PT 10.7 sec (9.0-12.0) 09/18/16 11:14 INR 1.1 (<1.2) 09/18/16 11:14 APTT 25.0 sec (22.0-30.0) 09/18/16 11:14 Sodium 139 mmol/L (137-145) 09/18/16 11:14 Potassium 4.2 mmol/L (3.5-5.1) 09/18/16 11:14 Chloride 104 mmol/L (98-107) 09/18/16 11:14 Carbon Dioxide 27 mmol/L (22-30) 09/18/16 11:14 Anion Gap 8 mmol/L 09/18/16 11:14 BUN 18 mg/dL (9-20) 09/18/16 11:14 Creatinine 0.87 mg/dL (0.66-1.25) 09/18/16 11:14 Est GFR (MDRD) Af Amer >60 (>60 ml/min/1.73 sqM) 09/18/16 11:14 Est GFR (MDRD) Non-Af >60 (>60 ml/min/1.73 sqM) 09/18/16 11:14 Glucose 196 mg/dL (74-99) H 09/18/16 11:14 Calcium 8.8 mg/dL (8.4-10.2) 09/18/16 11:14 Total Bilirubin 0.2 mg/dL (0.2-1.3) 09/18/16 11:14 AST 15 U/L (17-59) L 09/18/16 11:14 ALT 29 U/L (21-72) 09/18/16 11:14 Alkaline Phosphatase 68 U/L (38-126) 09/18/16 11:14 Total Creatine Kinase 38 U/L (55-170) L 09/18/16 11:14 CK-MB (CK-2) 1.4 ng/mL (0.0-2.4) 09/18/16 11:14 CK-MB (CK-2) Rel Index 3.7 09/18/16 11:14 Troponin I <0.012 ng/mL (0.000-0.034) 09/18/16 11:14 Total Protein 6.0 g/dL (6.3-8.2) L 09/18/16 11:14 Albumin 3.5 g/dL (3.5-5.0) 09/18/16 11:14 Thrombosis Risk Factor Assmnt - DVT/VTE Prophylaxis DVT/VTE Prophylaxis: Mechanical Prophylaxis ordered - Choose All That Apply Each Risk Factor Represents 3 Points: Age 75 years or older Thrombosis Risk Factor Assessment Total Risk Factor Score: 3 Thrombosis Risk Factor Assessment Level: Moderate Risk Assessment and Plan Plan: 1. Right sided hemiparesis transient suspect TIA however patient lingers to have fourth and fifth finger weakness and difficulty in the right patient sleep , no pronator drift noted, TIA is suspected, not a candidate for TPA, cervical pathology is suspected against ulnar tunnel syndrome and patient was seen consultation by neurology and MRI brain MRI cervical spine requested Plavix started at 75 mg along with aspirin 2 . Diabetes mellitus type 2. Continue patient on Glucotrol 2.5 mg orally 3 times every day, continue metformin 1000 g orally twice every day, continue Onglyza 5 mg orally once every day. Place the patient on the sliding scale insulin, BGM before each meal and at bedtime. 4. History of lung cancer status post partial resection. He currently is not on any regimented program, not requiring any chemo, and does not follow or need any follow-up with oncology according to the , last chest CT 06/26/2016 are the following findings tiny right-sided pleural effusion, patchy groundglass opacity in the posterior superior left upper lung underlying asbestosis exposure was suspected based on CT persistent reticulation and groundglass opacity noted in the posterior right upper lobe and right lower lobe follows with pulmonary outpatient 5. GERD. Continue patient on the Prilosec 20 mg orally twice every day. 6. Hyperlipidemia. Continue low-cholesterol diet. 7. Diaphragmatic hernia. Stable at this point in time. 8. Enlarged prostate. Stable. 9. DVT prophylaxis. Lovenox 40 mg subcutaneously every 24 hours. 10. GI prophylaxis. Continue omeprazole 20 mg orally twice every day. 11. Patient is full code discussed with the patient. 12. Admit to inpatient. Estimate a length of stay 2 midnights.
[2016-09-18] MEDS: INSULIN LISPRO (humaLOG) 300 UNIT/3 ML VIAL SQ SCH ×2 (17:07→21:49)
[2016-09-18 17:09] LABS: Glucose,Whole Blood 87 mg/dL (75-99)
[2016-09-18] MEDS: PANTOPRAZOLE 40 MG TABLET PO SCH (17:16)
[2016-09-18 18:32] LABS: Hemoglobin A1C 7.6 % (4.2-6.1)
[2016-09-18] MEDS ORDERED: IPRATROPIUM 0.5 MG/2.5 ML NEBU INHALATION SCH (20:00)
--- NOTE | 2016-09-18 20:16 | MR ---
EXAMINATION TYPE: MR brain wo/w con DATE OF EXAM: 09/18/2016 COMPARISON: CT brain from earlier today HISTORY: HX of Lung CA 2010 with Transient right-sided hemiparesis per order. Right-sided weakness on admission today. TECHNIQUE: Multiplanar, multisequence images of the brain and brainstem is performed without and with IV contras t, utilizing 14 mL intravenous MultiHance . FINDINGS: Diffusion weighted images demonstrate no evidence of a recent infarct or other diffusion ab normality. There is no worrisome extra-axial fluid collection. There is probable arachnoid cyst post erior right posterior cerebellar fossa superiorly with local mass effect and thinning of the adjacent calvarium measuring approximately 2.3 x 2.0 cm on axial image 10. There is ventricular and sulcal pr ominence consistent with diffuse cerebral atrophy. There are scattered foci of T2 hyperintensity seen throughout the deep and periventricular white matter. Lesions are nonspecific in appearance and dist ribution but most likely on basis of product of chronic small vessel ischemic change in patient this age. Midline structures demonstrate normal morphology. The craniocervical junction appears within normal limits. Post contrast images demonstrate no abnormal enhancement. The dural venous sinuses appear pa tent. The visualized sinuses are clear and the globes are intact. IMPRESSION: There is mild to moderate diffuse cerebral atrophy and chronic small vessel ischemic barney ge redemonstrated. There is 2.3 cm posterior fossa arachnoid cyst. No suspicious enhancing intraparen chymal mass is seen. No evidence of a recent infarct.
--- NOTE | 2016-09-18 20:20 | MR ---
MRI CERVICAL SPINE: CLINICAL HISTORY: Cervical radiculopathy with myelopathy. Acute onset right sided neck weakness. Hist ory of lung cancer. TECHNIQUE: Multiplanar, multisequence imaging of the cervical spine is performed without IV contrast. COMPARISON: None. FINDINGS: Sagittal images of the cervical spine show the craniocervical junction to appear within nor mal limits. The cervical and upper thoracic spinal cord is normal in course, caliber, and signal. Th ere is slight grade 1 retrolisthesis of C6 on C7 measuring approximately 3 mm. The vertebral body he ights are normal. There is mild to moderate disc space narrowing C6-C7 level. Posterior disc herniati on is seen at this level on sagittal images. The bone marrow signal intensity is within normal limits . No significant spurring is seen. Axial images show the C2-C3 level to appear within normal limits. Axial images C3-C4 level show uncovertebral facet degenerative changes bilaterally, there is moderate left and mild right-sided neural foraminal narrowing noted. Axial images at C4-C5 level show uncovertebral facet degenerative changes bilaterally causing advance d left-sided neural foraminal narrowing. Mild right-sided neural foraminal narrowing is noted. Axial images at C5-C6 level shows right paracentral disc protrusion mildly effacing anterior thecal s ac and uncovertebral facet degenerative changes bilaterally causing mild bilateral neural foraminal n arrowing. Axial images at C6-C7 level show spondylolisthesis and broad-based posterior disc protrusion effacing anterior thecal sac, mild bilateral neural foraminal narrowing at this level is identified. Slight i nferior extrusion is noted. Axial images at C7-T1 level are felt within normal limits. IMPRESSION: Some multilevel degenerative changes in the cervical spine as detailed above most promine nt at C6-C7 level.
[2016-09-18] MEDS: BUDESONIDE 0.5 MG/2 ML NEBU INHALATION SCH (20:28)
[2016-09-18] MEDS: IPRATROPIUM 0.5 MG/2.5 ML NEBU INHALATION SCH (20:34)
--- NOTE | 2016-09-18 20:42 | P.CNNES ---
History of Present Illness Consult date: 09/18/16 History of Present Illness: The patient is an 86-year-old right-handed white male who states he woke up yesterday morning with right hand weakness. He also notices right leg was weaker. He did not fall and he could still walk but he had some sense of weakness in the right leg. He states the symptoms have persisted. He has a history of mini stroke for 5 years ago. He has been on baby aspirin since that time. He had a CT of the brain in the emergency room which showed mild atrophy. The patient denied any facial weakness slurred speech dizziness or headache. Review of Systems Eyes: denies blurred vision, denies pain Ears, nose, mouth and throat: Denies headache, Denies sore throat Cardiovascular: Denies chest pain, Denies shortness of breath Respiratory: Denies cough Gastrointestinal: Denies abdominal pain, Denies diarrhea, Denies nausea, Denies vomiting Musculoskeletal: Denies myalgias Integumentary: Denies pruritus, Denies rash Psychiatric: Denies anxiety, Denies depression Endocrine: Denies fatigue, Denies weight change Past Medical History Past Medical History: Asthma, Cancer, COPD, CVA/TIA, Diabetes Mellitus, GERD/ Reflux, Hyperlipidemia, Osteoarthritis (OA), Pneumonia, Prostate Disorder Additional Past Medical History / Comment(s): 2009 L lung cancer with sx, NIDDM type II, TIA in 2012, iron deficiency anemia, athritis bilateral hands/feet, hiatal hernia, rt side dominant. History of Any Multi-Drug Resistant Organisms: MRSA Date of last positivie culture/infection: 06/23/16 MDRO Source:: sputum Past Surgical History: Orthopedic Surgery, Tonsillectomy Additional Past Surgical History / Comment(s): 2/3 left lobectomy 2009-post op incisional infection and had debridements, colonoscopy/benign polypectomy, hemmoroidectomy, right shoulder arthrotomy. Past Anesthesia/Blood Transfusion Reactions: No Reported Reaction Smoking Status: Former smoker - Past Family History Father Family Medical History: No Reported History Additional Family Medical History / Comment(s): Father at the age of 74yrs. Mother Family Medical History: CVA/TIA Additional Family Medical History / Comment(s): Mother was healthy and at the age of 80yrs. Sister(s) Family Medical History: Coronary Artery Disease (CAD), Myocardial Infarction ([place] ) Brother(s) Family Medical History: Neurologic Disorder Daughter(s) Family Medical History: No Reported History Son(s) Family Medical History: Cancer Medications and Allergies Home Medications Medication Instructions Recorded Confirmed Type Omeprazole [PriLOSEC] 20 mg PO AC-BID 11/21/13 09/18/16 History glipiZIDE [Glucotrol] 2.5 mg PO TID 11/21/13 09/18/16 History Aspirin 81 mg PO DAILY 06/23/16 09/18/16 History Ferrous Sulfate [Iron (65 MG 325 mg PO DAILY 06/23/16 09/18/16 History Elemental)] Ipratropium [place] [Atrovent Hfa] 2 puff INHALATION RT-TID 06/23/16 09/18/16 History Mirtazapine [Remeron] 7.5 mg PO HS 06/23/16 09/18/16 History Multivit-Min/FA/Lycopen/Lutein 1 tab PO DAILY 06/23/16 09/18/16 History [Centrum Silver Men Tablet] Saxagliptin HCl [Onglyza] 5 mg PO DAILY 06/23/16 09/18/16 History metFORMIN HCL 1,000 mg PO BID 06/23/16 09/18/16 History Fluticasone Nasal [place] [Flonase 2 spr EA NOSTRIL DAILY 09/18/16 09/18/16 History Nasal [place]] Allergies Allergy/AdvReac Type Severity Reaction Status Date / Time No Known Allergies Allergy Verified 09/18/16 11:12 Physical Examination - Vital Signs Vital Signs: Vital Signs Temp Pulse Pulse Resp BP BP Pulse Ox 09/18/16 20:34 74 09/18/16 20:00 97.4 F L 74 18 128/60 94 L 09/18/16 15:00 97.7 F 66 18 166/74 98 09/18/16 14:23 98.0 F 65 18 153/70 100 09/18/16 13:48 72 18 140/94 99 09/18/16 13:15 98.0 F 64 18 131/65 99 09/18/16 12:46 75 16 134/65 100 09/18/16 12:15 97.8 F 78 20 136/65 99 09/18/16 11:50 72 16 137/66 99 09/18/16 10:38 97.5 F L 76 17 160/67 96 Intake and Output 09/18/16 09/18/16 09/18/16 06:59 14:59 22:59 Intake Total 337 Balance 337 Intake: Intake, IV Titration 100 Amount Sodium Chloride 0.9% 1, 100 000 ml @ 100 mls/hr IV . Q10H DENICE Rx#:[id number] Oral 237 Other: Voiding Method Urinal Weight 68.039 kg Patient Weight 09/19/16 06:59 Weight 68.039 kg - Constitutional General appearance: average body habitus - EENT EENT: PERRL, hearing intact, vision intact - Respiratory Respiratory: lungs clear - Cardiovascular Cardiovascular: regular rate, normal S1, normal S2 - Integumentary Integumentary: normal - Neurologic Mental status he was awake alert and oriented 3 his speech was fluent there was no a aphasia or dysarthria Cranial nerve examination: PERRL, EOMI, VFF, face symmetric, tongue midline Detailed motor examination: other (Strength testing 5 out of 5 throughout except for right hand minimal weakness and subjective weakness in his right leg) Motor examination - right side: 5/5: biceps, triceps, wrist flexion, wrist extension, diesel technician mechanic, hip flexors, knee extensors, dorsiflexion, toe extension (EHL) , plantarflexion Motor examination - left side: 5/5: biceps, triceps, wrist flexion, wrist extension, diesel technician mechanic, hip flexors, knee extensors, dorsiflexion, toe extension (EHL) , plantarflexion Detailed sensory examination: intact Reflex and gait examination: intact - Psychiatric Psychiatric: mood/affect appropriate Results - Laboratory Findings CBC and BMP: 09/18/16 11:14 09/18/16 11:14 Abnormal Lab Findings: Abnormal Labs 09/18/16 09/18/16 09/18/16 11:14 11:14 11:14 RBC 4.09 L Hgb 12.1 L Hct 37.4 L Plt Count 136 L Lymphocytes # 0.9 L Glucose 196 H POC Glucose (mg/dL) Hemoglobin A1c AST 15 L Total Creatine Kinase 38 L Total Protein 6.0 L 09/18/16 09/18/16 11:14 16:55 RBC Hgb Hct Plt Count Lymphocytes # Glucose POC Glucose (mg/dL) 65 L Hemoglobin A1c 7.6 H AST Total Creatine Kinase Total Protein Assessment and Plan (1) Cerebrovascular accident Status: Acute Code(s): I63.9 - CEREBRAL INFARCTION, UNSPECIFIED Plan: The patient is an 86-year-old man who presents with right-sided weakness acute onset since yesterday. He has been taking a baby aspirin daily at home since his previous stroke several years ago. The patient had a CT of the brain which showed no acute abnormality. He'll be undergoing an MRI of the brain. Recommend adding Plavix 75 mg a day to his baby aspirin therapy. Patient also had an echocardiogram results of which are pending. His risk factors for stroke include previous stroke diabetes and hyperlipidemia
[2016-09-18] MEDS ORDERED: MIRTAZAPINE 15 MG TAB PO SCH (21:00)
[2016-09-18 21:02] LABS: Glucose,Whole Blood 217 mg/dL (75-99)
[2016-09-18] MEDS: metFORMIN 500 MG TAB PO SCH (21:45)
[2016-09-19 06:00] LABS: Glucose,Whole Blood 88 mg/dL (75-99)
[2016-09-19] MEDS: SODIUM CHLORIDE 0.9% 1,000 ML IV SCH ×2 (06:40→08:31)
[2016-09-19] MEDS: INSULIN LISPRO (humaLOG) 300 UNIT/3 ML VIAL SQ SCH ×2 (06:41→12:14)
[2016-09-19 06:48] LABS: Basophils % (A) 0 %; CH 29.7; CHCM 32.3; Eosinophils # (A) 0.2 k/uL (0-0.7); Eosinophils % (A) 3 %; HCT 35.6 % (39.0-53.0); HDW 2.52; HGB 11.7 gm/dL (13.0-17.5); Luc # (Auto) 0.12; Luc % (Auto) 2; Lymphocytes # (A) 1.1 k/uL (1.0-4.8); Lymphocytes % (A) 18 %; MCH 30.4 pg (25.0-35.0); MCHC 32.9 g/dL (31.0-37.0); MCV 92.4 fL (80.0-100.0); Mean Platelet Volume 10.3; Monocytes # (A) 0.4 k/uL (0-1.0); Monocytes % (A) 6 %; Neutrophils # (A) 4.2 k/uL (1.3-7.7); Neutrophils % (A) 71 %; RBC 3.86 m/uL (4.30-5.90); RDW 14.6 % (11.5-15.5); WBC 5.9 k/uL (3.8-10.6)
[2016-09-19] MEDS: PANTOPRAZOLE 40 MG TABLET PO SCH (06:55)
[2016-09-19 07:03] LABS: Anion Gap 7 mmol/L; Blood Urea Nitrogen 15 mg/dL (9-20); Calcium 8.9 mg/dL (8.4-10.2); Carbon Dioxide 28 mmol/L (22-30); Chloride 107 mmol/L (98-107); Cholesterol 123 mg/dL (<200); Glucose 80 mg/dL (74-99); HDL Cholesterol 46 mg/dL (40-60); Non-African American GFR(MDRD) >60 (>60 ml/min/1.73 sqM); Potassium 4.6 mmol/L (3.5-5.1); Sodium 142 mmol/L (137-145); Triglycerides 94 mg/dL (<150)
[2016-09-19] MEDS: IPRATROPIUM 0.5 MG/2.5 ML NEBU INHALATION SCH (08:42)
[2016-09-19] MEDS: BUDESONIDE 0.5 MG/2 ML NEBU INHALATION SCH (08:42)
[2016-09-19] MEDS ORDERED: LINAGLIPTIN 5 MG TABLET PO SCH (09:00)
[2016-09-19] MEDS ORDERED: FERROUS SULFATE 325 MG TAB PO SCH (09:00)
[2016-09-19] MEDS ORDERED: CLOPIDOGREL 75 MG TAB PO SCH (09:00)
[2016-09-19] MEDS ORDERED: ASPIRIN 81 MG CHEW PO SCH (09:00)
[2016-09-19] MEDS ORDERED: ASPIRIN 325 MG TAB PO SCH (09:00)
[2016-09-19] MEDS ORDERED: FLUTICASONE 50MCG/SPRAY NASAL 16GM EA NOSTRIL SCH (09:00)
[2016-09-19] MEDS: metFORMIN 500 MG TAB PO SCH (09:06)
--- NOTE | 2016-09-19 10:13 | ECHOF ---
Referral Reason:Thrombus MEASUREMENTS -------- HEIGHT: 175.3 cm WEIGHT: 68.0 kg BP: 137/66 RVIDd: 2.6 cm (< 3.3) IVSd: 1.0 cm (0.6 - 1.1) LVIDd: 3.7 cm (3.9 - 5.3) LVPWd: 1.0 cm (0.6 - 1.1) IVSs: 1.6 cm LVIDs: 2.4 cm LVPWs: 1.6 cm LA Diam: 3.5 cm (2.7 - 3.8) LAESV Index (A-L): 28.72 ml/m Ao Diam: 3.4 cm (2.0 - 3.7) AV Cusp: 1.4 cm (1.5 - 2.6) MV EXCURSION: 18.048 mm (> 18.000) MV EF SLOPE: 45 mm/s (70 - 150) EPSS: 0.7 cm MV E Ranjith: 0.76 m/s MV DecT: 240 ms MV A Ranjith: 0.99 m/s MV E/A Ratio: 0.77 AV maxP.77 mmHg AV meanP.33 mmHg RAP: 5.00 mmHg RVSP: 34.14 mmHg FINDINGS -------- Sinus rhythm. This was a technically good study. The left ventricular size is normal. Left ventricular wall thickness is normal. Overall left ventricular systolic function is normal with, an EF between 55 - 60 %. The right ventricle is normal in size. LA is midly dilated 29-33ml/m2. The right atrium is normal in size. There is mild aortic valve sclerosis. There is mild aortic stenosis present. Peak/mean gradient across the Aortic Valve is 11.77mmHg / 6.33mmHg. Mild mitral annular calcification present. Mild mitral regurgitation is present. Mild tricuspid regurgitation present. Right ventricular systolic pressure is normal at < 35 mmHg. Moderate pulmonic regurgitation. The aortic root size is normal. Normal inferior vena cava with normal inspiratory collapse consistent with estimated right atrial pressure of 5 mmHg. There is no pericardial effusion. CONCLUSIONS -------- 1. Sinus rhythm. 2. Peak/mean gradient across the Aortic Valve is 11.77mmHg / 6.33mmHg. 3. Mild mitral annular calcification present. 4. Mild mitral regurgitation is present. 5. Mild tricuspid regurgitation present. 6. Right ventricular systolic pressure is normal at < 35 mmHg. 7. Moderate pulmonic regurgitation. 8. The aortic root size is normal. 9. Normal inferior vena cava with normal inspiratory collapse consistent with estimated right atrial pressure of 5 mmHg. 10. There is no pericardial effusion. 11. This was a technically good study. 12. The left ventricular size is normal. 13. Left ventricular wall thickness is normal. 14. Overall left ventricular systolic function is normal with, an EF between 55 - 60 %. 15. The right ventricle is normal in size. 16. LA is midly dilated 29-33ml/m2. 17. There is mild aortic valve sclerosis. 18. There is mild aortic stenosis present. COMMERCIAL LAWN SPECIALIST: Antoinette Bobo RDCS
[2016-09-19 11:40] VITALS: BMI 21.9
[2016-09-19 11:40] LABS: Glucose,Whole Blood 91 mg/dL (75-99)
[2016-09-19] MEDS ORDERED: MULTIVITAMINS, THERA 1 EACH TAB PO SCH (12:00)
[2016-09-19 12:38] VITALS: BP 151/70; PULSE 78; TEMP 97.7
--- NOTE | 2016-09-20 10:45 | P.DS ---
Providers Date of admission: 09/18/16 12:14 Expected date of discharge: 09/19/16 Attending physician: Adriana Domingo Consults: 09/18/16 12:15 Consult Physician Urgent Consulting Provider: Cecy Li Consult Reason/Comments: cva Do you want consulting provider notified?: Yes Primary care physician: Jasmin Natarajan [facility] Course: This is an 86-year-old male patient of Dr. Delgado Turcios with a previous medical history significant for diabetes mellitus type 2, hyperkalemia , moderate COPD, lung cancer status post partial lobectomy, GERD, recent hospitalization last June 23 until June 27 for MRSA right lower lobe pneumonia with right pleural effusion, COPD TIAs with left-sided location and no residual deficits, admitted to emergency room with acute complaints off right-sided weakness which started one day prior to admission. Patient woke up from his sleep yesterday morning with right approximately right lower extremity weakness , patient has complained worsening weakness of the fourth and fifth finger mainly and this is impairing his pr specialist. Patient remains to be concerned and was subsequently seen in the emergency room for evaluation. Patient denies any trauma or hand swelling, no neck pain, symptoms have resolved for the right- sided weakness except for the residual weakness on the fourth and fifth most likely secondary to ulnar pathology or cervical pathology In the emergency room with the above complaints, CTA of the brain mild atrophic change no acute intracranial abnormality chronic white matter ischemic changes. EKG shows normal sinus rhythm normal EKG no st-T changes noted, Doppler studies shows no significant hemodynamically significant stenosis on either internal carotid artery, this elevated left-sided external carotid artery flow velocity made with Dr. Li neurology with MRI of the brain and MRI of the cervical neck 09/19: MRI of the brain showed mild to moderate diffuse cerebral atrophy and chronic small vessel ischemic change be demonstrated. 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 No suspicious enhancing intraparenchymal masses seen. No evidence of recent infarct. MRI of the cervical spine showed multilevel degenerative changes in the cervical spine most prominent at C6/C7 level. Patient has been seen and evaluated by Dr. Li with recommendations for adding Plavix and continue baby aspirin. Triglycerides 84, cholesterol 123 , LDL 58, HDL 46. TSH was normal at 3.760. Patient will be discharged home today in stable condition. Discharge diagnoses: 1. Right sided hemiparesis transient suspect TIA 2. Diabetes mellitus type 2. 3. History of lung cancer status post partial resection 4. GERD. 5. Hyperlipidemia. 6. Diaphragmatic hernia. 7. Enlarged prostate. Discharge plan: Return home Impression and plan of care have been directed as dictated by the signing physician. Renita Barger nurse practitioner acting as scribe for signing physician. Patient Condition at Discharge: Good Plan - Discharge Summary New Discharge Prescriptions: New Clopidogrel [Plavix] 75 mg PO DAILY #30 tab Continue Omeprazole [PriLOSEC] 20 mg PO AC-BID glipiZIDE [Glucotrol] 2.5 mg PO TID Mirtazapine [Remeron] 7.5 mg PO HS Ipratropium [place] [Atrovent Hfa] 2 puff INHALATION RT-TID Multivit-Min/FA/Lycopen/Lutein [Centrum Silver Men Tablet] 1 tab PO DAILY Ferrous Sulfate [Iron (65 MG Elemental)] 325 mg PO DAILY metFORMIN HCL 1,000 mg PO BID Aspirin 81 mg PO DAILY Saxagliptin HCl [Onglyza] 5 mg PO DAILY Budesonide [Pulmicort] 0.5 mg INHALATION RT-BID #60 Fluticasone Nasal [place] [Flonase Nasal [place]] 2 spr EA NOSTRIL DAILY Discharge Medication List Omeprazole [PriLOSEC] 20 mg PO AC-BID 11/21/13 [History] glipiZIDE [Glucotrol] 2.5 mg PO TID 11/21/13 [History] Aspirin 81 mg PO DAILY 06/23/16 [History] Ferrous Sulfate [Iron (65 MG Elemental)] 325 mg PO DAILY 06/23/16 [History] Ipratropium [place] [Atrovent Hfa] 2 puff INHALATION RT-TID 06/23/16 [History] Mirtazapine [Remeron] 7.5 mg PO HS 06/23/16 [History] Multivit-Min/FA/Lycopen/Lutein [Centrum Silver Men Tablet] 1 tab PO DAILY [History] Saxagliptin HCl [Onglyza] 5 mg PO DAILY 06/23/16 [History] metFORMIN HCL 1,000 mg PO BID 06/23/16 [History] Budesonide [Pulmicort] 0.5 mg INHALATION RT-BID #60 08/10/16 [Rx] Fluticasone Nasal [place] [Flonase Nasal [place]] 2 spr EA NOSTRIL DAILY 09/18/16 [ History] Clopidogrel [Plavix] 75 mg PO DAILY #30 tab 09/19/16 [Rx] Follow up Appointment(s)/Referral(s): Jasmin Natarajan MD [Primary Care Provider] - 09/28/16 5:15 pm Trevon Dubon DO [Doctor of Osteopathic Medicine] - 10/10/16 8:00 am (Office going to mail paperwork to fill out.) Cecy Li MD [STAFF PHYSICIAN] - 10/05/16 2:15 pm Patient Instructions/Handouts: Cubital Tunnel Syndrome (DC) Activity/Diet/Wound Care/Special Instructions: Outpatient physical therapy for ulnar radiculopathy Discharge Disposition: HOME SELF-CARE
== END 2016-09-19 13:49 | disposition home or self-care (01) | DRG 69 ==
LOC: EC 10:21 → 6SEL 12:14
PROVIDERS: ADMIT Family Medicine; ATTEND Family Medicine
DX: G45.9 Transient cerebral ischemic attack, unspecified (principal); G81.91 Hemiplegia, unspecified affecting right dominant side; J44.9 Chronic obstructive pulmonary disease, unspecified; E11.9 Type 2 diabetes mellitus without complications; M50.323 Other cervical disc degeneration at C6-C7 level; G93.0 Cerebral cysts; E78.5 Hyperlipidemia, unspecified; K21.9 Gastro-esophageal reflux disease without esophagitis; M19.072 Primary osteoarthritis, left ankle and foot; M19.071 Primary osteoarthritis, right ankle and foot; M19.041 Primary osteoarthritis, right hand; M19.042 Primary osteoarthritis, left hand; F32.9 Major depressive disorder, single episode, unspecified; K44.9 Diaphragmatic hernia without obstruction or gangrene; N40.0 Benign prostatic hyperplasia without lower urinary tract symptoms; Z85.118 Personal history of other malignant neoplasm of bronchus and lung; Z90.2 Acquired absence of lung [part of]; Z79.899 Other long term (current) drug therapy; Z79.84 Long term (current) use of oral hypoglycemic drugs; Z82.49 Family history of ischemic heart disease and other diseases of the circulatory system; Z87.891 Personal history of nicotine dependence; Z79.82 Long term (current) use of aspirin; Z86.73 Personal history of transient ischemic attack (TIA), and cerebral infarction without residual deficits; Z79.51 Long term (current) use of inhaled steroids; Z71.3 Dietary counseling and surveillance; Z87.01 Personal history of pneumonia (recurrent); Z86.14 Personal history of Methicillin resistant Staphylococcus aureus infection; Z86.010 Personal history of colon polyps; Z80.9 Family history of malignant neoplasm, unspecified; Z82.0 Family history of epilepsy and other diseases of the nervous system; Z82.3 Family history of stroke; Z86.2 Personal history of diseases of the blood and blood-forming organs and certain disorders involving the immune mechanism
CPT/HCPCS: 36415; 70450; 70553; 71020; 72141; 80048; 80053; 80061; 82550; 82553; 83036; 84443; 84484; 85025; 85610; 85730; 93005; 93306; 93880; 94640; 96360; 96361; 99285

== ENCOUNTER 2016-10-26 07:26 | Day surgery (SDC) | payer MEDICARE, OTHER ==
[2016-10-25 09:18] VITALS: BMI 22.1
[~2016-10-26 07:26] MED LIST: LACTATED RINGERS 1,000 ML IV SCH; LIDOCAINE 1% 20 ML VIAL (10MG/ML) FOR IV START INTRADERMA PRN
[2016-10-26 07:47] VITALS: TEMP 97.8
[2016-10-26 08:01] LABS: Glucose,Whole Blood 113 mg/dL (75-99)
[2016-10-26] MEDS ORDERED: LIDOCAINE 1% INJ 10MG/ML (20 ML MDV) ONE (08:18)
[2016-10-26] MEDS ORDERED: PROPOFOL 10 MG/ML 20 ML VIAL IV ONE (08:18)
[2016-10-26] MEDS ORDERED: GLYCOPYRROLATE 0.2 MG/ML 2 ML VIAL ONE (08:18)
[2016-10-26 09:21] VITALS: BP 115/74; PULSE 77; RESP 18
--- NOTE | 2016-10-26 09:24 | P.PCN ---
Date of Procedure: 10/26/16 Preoperative Diagnosis: Postoperative Diagnosis: Procedure(s) Performed: Procedure: Esophagogastroduodenoscopy and biopsy and esophageal dilation using the Microvasive [id number] balloon dilator size 15-18 mm. Preoperative diagnosis: Dysphagia and weight loss. Postoperative diagnosis: 1. Hiatal hernia and benign esophageal stricture dilated up to 18 mm. 2. Mild antral gastritis. Preparation sedation: Was provided by anesthesia. Brief clinical history: The patient is an 86-year-old male who is scheduled for this evaluation because of history of dysphagia over the last year and 15 pounds of weight loss over the last year or 2. There is history of lung cancer for which he underwent surgery and history of acid reflux. This evaluation is to assess for complicated reflux disease or other pathology. Procedure: With the patient on his left lateral decubitus position and after informed consent and adequate sedation, I passed the Olympus-GIF 160 video upper endoscope through the cricopharyngeus down the esophagus. GE junction was around 37 cm from the incisors and there was a 2 cm sliding hiatal hernia. The esophagus did not show any obvious erosions, ulcers or Limon's esophagus. There was a benign, nonobstructing, short stricture at the level of the GE junction that I dilated at the end of the examination using the Microvasive [id number] balloon dilator size 15-18 mm. The stomach was insufflated with air and inspected in detail including the retroflex view in the cardia. Finally, the endoscope was passed through the pylorus into the duodenum. Pyloric channel, duodenal bulb, post bulbar area and descending duodenum appeared within normal limits. The antrum showed mottling and erythema but there were no ulcers, erosions or bleeding. Biopsy was obtained from the esophagus as well as from the antrum and the esophagus was then dilated in a stepwise fashion using the 15-18 mm balloon dilator. The patient tolerated the procedure well. Plan: The patient was reassured. Will allow clear liquids today. Further plans will be made based on his course. I will keep you updated on his progress. Implants: Indications for Procedure: Operative Findings: Description of Procedure:
== END 2016-10-26 09:37 | disposition home or self-care (01) ==
LOC: ORWHC2ENDO 07:26
DX: K21.0 Gastro-esophageal reflux disease with esophagitis (principal); K22.2 Esophageal obstruction; K20.0 Eosinophilic esophagitis; J44.9 Chronic obstructive pulmonary disease, unspecified; Z86.73 Personal history of transient ischemic attack (TIA), and cerebral infarction without residual deficits; Z79.84 Long term (current) use of oral hypoglycemic drugs; E11.9 Type 2 diabetes mellitus without complications; E78.5 Hyperlipidemia, unspecified; M19.90 Unspecified osteoarthritis, unspecified site; Z79.82 Long term (current) use of aspirin; Z79.51 Long term (current) use of inhaled steroids; Z79.899 Other long term (current) drug therapy
CPT/HCPCS: 88305; 88342; 43239; 43249; J2001; J2704; C1726; 88312

== ENCOUNTER → 2017-07-26 | Outpatient (CLI) | payer MEDICARE, OTHER ==
--- NOTE | 2017-07-26 19:25 | ECHOF ---
Referral Reason:Nonrheumatic aortic valve stenosis I35.0 MEASUREMENTS -------- HEIGHT: 175.3 cm WEIGHT: 72.1 kg BP: IVSd: 1.5 cm (0.6 - 1.1) LVIDd: 3.7 cm (3.9 - 5.3) LVPWd: 1.7 cm (0.6 - 1.1) IVSs: 1.8 cm LVIDs: 2.8 cm LVPWs: 1.6 cm Ao Diam: 3.5 cm (2.0 - 3.7) AV Cusp: 1.1 cm (1.5 - 2.6) LA Diam: 3.8 cm (2.7 - 3.8) MV EXCURSION: 17.918 mm (> 18.000) MV EF SLOPE: 102 mm/s (70 - 150) EPSS: 0.4 cm MV E Ranjith: 0.45 m/s MV DecT: 170 ms MV A Ranjith: 0.76 m/s MV E/A Ratio: 0.58 AV maxP.47 mmHg AV meanP.61 mmHg RAP: 5.00 mmHg RVSP: 43.21 mmHg FINDINGS -------- Resting bradycardia (HR<60bpm). This was a technically good study. The left ventricular size is normal. There is moderate concentric left ventricular hypertrophy. O verall left ventricular systolic function is normal with, an EF between 55 - 60 %. The right ventricle is normal in size and function. The left atrium is normal in size. The right atrium is normal in size. There is moderate aortic valve sclerosis. There is mild aortic stenosis present. Peak/mean gradie nt across the Aortic Valve is 19.47mmHg / 9.61mmHg. The mitral valve leaflets are mildly thickened. Mild mitral regurgitation is present. Mild tricuspid regurgitation present. There is mild pulmonary hypertension. The right ventricular systolic pressure, as measured by Doppler, is 43.21mmHg. Trace/mild (physiologic) pulmonic regurgitation. The aortic root size is normal. Normal inferior vena cava with normal inspiratory collapse consistent with estimated right atrial pre ssure of 5 mmHg. There is no pericardial effusion. CONCLUSIONS -------- 1. Resting bradycardia (HR<60bpm). 2. This was a technically good study. 3. The left ventricular size is normal. 4. There is moderate concentric left ventricular hypertrophy. 5. Overall left ventricular systolic function is normal with, an EF between 55 - 60 %. 6. The left atrium is normal in size. 7. There is moderate aortic valve sclerosis. 8. There is mild aortic stenosis present. 9. Peak/mean gradient across the Aortic Valve is 19.47mmHg / 9.61mmHg. 10. The mitral valve leaflets are mildly thickened. 11. Mild mitral regurgitation is present. 12. Mild tricuspid regurgitation present. 13. There is mild pulmonary hypertension. 14. Trace/mild (physiologic) pulmonic regurgitation. 15. The aortic root size is normal. 16. Normal inferior vena cava with normal inspiratory collapse consistent with estimated right atrial pressure of 5 mmHg. 17. There is no pericardial effusion. REFINERY PIPELINE OPERATOR: Nicol Blair RDCS
== END | disposition home or self-care (01) ==
LOC: RADNMMAIN 09:50
PROVIDERS: ATTEND Internal Medicine
DX: I35.0 Nonrheumatic aortic (valve) stenosis (principal); I27.20 Pulmonary hypertension, unspecified
CPT/HCPCS: 93306

== ENCOUNTER 2017-09-13 09:49 | Inpatient (IN) | payer MEDICARE, OTHER ==
[2017-09-13] MEDS ORDERED: IPRATROPIUM-ALBUTEROL 3 ML NEB INHALATION STA (09:58)
[2017-09-13] MEDS ORDERED: KETOROLAC 30 MG/ML 1 ML VIAL IVP STA (09:58)
[2017-09-13] MEDS ORDERED: AZITHROMYCIN 500 MG in DEXTROSE 5% IN WATER 250 ML IVPB STA ×2 (09:58)
[2017-09-13] MEDS ORDERED: SODIUM CHLORIDE 0.9% 1,000 ML IV STA ×2 (09:58)
[2017-09-13] MEDS ORDERED: ACETAMINOPHEN IV (For NPO) 1,000 MG in EMPTY BAG 1 BAG IVPB STA (09:58)
--- NOTE | 2017-09-13 09:59 | ED ---
General Adult HPI - General Chief complaint: Shortness of Breath Stated complaint: SOB Time Seen by Provider: 09/13/17 09:57 Source: patient, RN notes reviewed, old records reviewed Mode of arrival: wheelchair Limitations: no limitations - History of Present Illness Initial comments: This is an 87-year-old male the ER for evaluation. Patient has some history of some lung disease history of prior pneumonia. Patient coming of shortness of breath starting last night. Increased cough and increased congestion and increasing shortness of breath. Patient is recent travel history, denies significant recent hospitalization. Patient does admit to chills overnight. No modifying factors for symptoms - Related Data Home Medications Medication Instructions Recorded Confirmed Omeprazole [PriLOSEC] 20 mg PO BID 11/21/13 09/13/17 Mirtazapine [Remeron] 7.5 mg PO HS 06/23/16 09/13/17 Saxagliptin HCl [Onglyza] 5 mg PO DAILY 06/23/16 09/13/17 metFORMIN HCL 1,000 mg PO BID 06/23/16 09/13/17 Budesonide [Pulmicort] 0.5 mg INHALATION RT-BID 10/25/16 09/13/17 glipiZIDE [Glucotrol] 2.5 mg PO AC-TID 10/25/16 09/13/17 Atorvastatin [Lipitor] 20 mg PO HS 09/13/17 09/13/17 Gabapentin [Neurontin] 100 mg PO BID 09/13/17 09/13/17 Ipratropium Nebulized [Atrovent 0.5 mg INHALATION RT-TID 09/13/17 09/13/17 Nebulized] Tamsulosin [Flomax] 0.4 mg PO DAILY 09/13/17 09/13/17 Allergies Allergy/AdvReac Type Severity Reaction Status Date / Time No Known Allergies Allergy Verified 09/13/17 10:20 Review of Systems ROS Statement: Those systems with pertinent positive or pertinent negative responses have been documented in the HPI. ROS Other: All systems not noted in ROS Statement are negative. Past Medical History Past Medical History: Asthma, Cancer, COPD, CVA/TIA, Diabetes Mellitus, GERD/ Reflux, Hearing Disorder / Deafness, Hyperlipidemia, Osteoarthritis (OA), Pneumonia, Prostate Disorder Additional Past Medical History / Comment(s): LEFT LUNG CANCER (2009 -LOBECTOMY) , TIA (2012), LOW IRON, HIATAL HERNIA, TYPE 2 DIABETES., BILATERAL HEARING AIDS.,SOB WITH ACTIVITY. , USES CANE PRN., HX OF PNEUMONIA WITH MRSA (06/23/16). , BRUISES ON ARMS. History of Any Multi-Drug Resistant Organisms: MRSA Date of last positivie culture/infection: 06/23/16 MDRO Source:: sputum Past Surgical History: Orthopedic Surgery, Tonsillectomy Additional Past Surgical History / Comment(s): 03/31/2009 left lobectomy with post op incisional infection and had debridements, colonoscopy/benign polypectomy, hemmoroidectomy, right shoulder arthrotomy. Past Anesthesia/Blood Transfusion Reactions: No Reported Reaction Past Psychological History: Depression Smoking Status: Former smoker Past Alcohol Use History: Occasional Past Drug Use History: None Reported - Past Family History Father Family Medical History: No Reported History Additional Family Medical History / Comment(s): Father at the age of 74yrs. Mother Family Medical History: CVA/TIA Additional Family Medical History / Comment(s): Mother was healthy and at the age of 80yrs. Sister(s) Family Medical History: Coronary Artery Disease (CAD), Myocardial Infarction ([place] ) Brother(s) Family Medical History: Neurologic Disorder Daughter(s) Family Medical History: No Reported History Son(s) Family Medical History: Cancer Additional Family Medical History / Comment(s): PROSTATE CANCER General Exam Limitations: no limitations General appearance: alert, in no apparent distress, anxious Head exam: Present: atraumatic, normocephalic, normal inspection Eye exam: Present: normal appearance, PERRL, EOMI. Absent: scleral icterus, conjunctival injection, periorbital swelling ENT exam: Present: normal exam, mucous membranes moist Neck exam: Present: normal inspection. Absent: tenderness, meningismus, lymphadenopathy Respiratory exam: Present: respiratory distress, wheezes, accessory muscle use, decreased breath sounds, prolonged expiratory. Absent: rales, rhonchi, stridor Cardiovascular Exam: Present: normal rhythm, tachycardia, normal heart sounds. Absent: systolic murmur, diastolic murmur, rubs, gallop, clicks GI/Abdominal exam: Present: soft, normal bowel sounds. Absent: distended, tenderness, guarding, rebound, rigid Extremities exam: Present: normal inspection, full ROM, normal capillary refill. Absent: tenderness, pedal edema, joint swelling, calf tenderness Back exam: Present: normal inspection Neurological exam: Present: alert, oriented X3, CN II-XII intact Psychiatric exam: Present: normal affect, normal mood Skin exam: Present: warm, dry, intact, normal color. Absent: rash Course Vital Signs 09/13/17 09/13/17 09/13/17 09:52 10:07 10:32 Temperature 100.7 F H Pulse Rate 102 H 99 98 Respiratory 22 20 Rate Blood Pressure 160/79 162/86 O2 Sat by Pulse 87 L 92 L Oximetry - Reevaluation(s) Reevaluation #1: 09/13/17 11:19 Patient feeling better with breathing treatment and fever control Medical Decision Making - Medical Decision Making 87 male the ER for evaluation positive fever positive cough or congestion positive pneumonia. - Lab Data Result diagrams: 09/13/17 10:16 09/13/17 10:16 Lab Results 09/13/17 09/13/17 09/13/17 Range/Units 10:16 10:16 10:16 WBC 11.8 H (3.8-10.6) k/uL RBC 4.56 (4.30-5.90) m/uL Hgb 13.4 (13.0-17.5) gm/dL Hct 40.3 (39.0-53.0) % MCV 88.6 (80.0-100.0) fL MCH 29.4 (25.0-35.0) pg MCHC 33.2 (31.0-37.0) g/dL RDW 14.3 (11.5-15.5) % Plt Count 117 L (150-450) k/uL Neutrophils % 91 % Lymphocytes % 3 % Monocytes % 4 % Eosinophils % 1 % Basophils % 0 % Neutrophils # 10.8 H (1.3-7.7) k/uL Lymphocytes # 0.4 L (1.0-4.8) k/uL Monocytes # 0.5 (0-1.0) k/uL Eosinophils # 0.2 (0-0.7) k/uL Basophils # 0.0 (0-0.2) k/uL PT (9.0-12.0) sec INR (<1.2) APTT (22.0-30.0) sec Sodium 137 (137-145) mmol/L Potassium 5.2 H (3.5-5.1) mmol/L Chloride 102 (98-107) mmol/L Carbon Dioxide 27 (22-30) mmol/L Anion Gap 8 mmol/L BUN 24 H (9-20) mg/dL Creatinine 0.94 (0.66-1.25) mg/dL Est GFR (CKD-EPI)AfAm 85 (>60 ml/min/1.73 sqM) Est GFR (CKD-EPI)NonAf 73 (>60 ml/min/1.73 sqM) Glucose 210 H (74-99) mg/dL Calcium 9.4 (8.4-10.2) mg/dL Magnesium 1.3 L (1.6-2.3) mg/dL Total Bilirubin 0.5 (0.2-1.3) mg/dL AST 23 (17-59) U/L ALT 35 (21-72) U/L Alkaline Phosphatase 76 (38-126) U/L Total Creatine Kinase 63 (55-170) U/L CK-MB (CK-2) 1.8 (0.0-2.4) ng/mL CK-MB (CK-2) Rel Index 2.9 Troponin I <0.012 (0.000-0.034) ng/mL NT-Pro-B Natriuret Pep pg/mL Total Protein 7.1 (6.3-8.2) g/dL Albumin 4.2 (3.5-5.0) g/dL 09/13/17 09/13/17 Range/Units 10:16 10:16 WBC (3.8-10.6) k/uL RBC (4.30-5.90) m/uL Hgb (13.0-17.5) gm/dL Hct (39.0-53.0) % MCV (80.0-100.0) fL MCH (25.0-35.0) pg MCHC (31.0-37.0) g/dL RDW (11.5-15.5) % Plt Count (150-450) k/uL Neutrophils % % Lymphocytes % % Monocytes % % Eosinophils % % Basophils % % Neutrophils # (1.3-7.7) k/uL Lymphocytes # (1.0-4.8) k/uL Monocytes # (0-1.0) k/uL Eosinophils # (0-0.7) k/uL Basophils # (0-0.2) k/uL PT 9.8 (9.0-12.0) sec INR 1.0 (<1.2) APTT 24.0 (22.0-30.0) sec Sodium (137-145) mmol/L Potassium (3.5-5.1) mmol/L Chloride (98-107) mmol/L Carbon Dioxide (22-30) mmol/L Anion Gap mmol/L BUN (9-20) mg/dL Creatinine (0.66-1.25) mg/dL Est GFR (CKD-EPI)AfAm (>60 ml/min/1.73 sqM) Est GFR (CKD-EPI)NonAf (>60 ml/min/1.73 sqM) Glucose (74-99) mg/dL Calcium (8.4-10.2) mg/dL Magnesium (1.6-2.3) mg/dL Total Bilirubin (0.2-1.3) mg/dL AST (17-59) U/L ALT (21-72) U/L Alkaline Phosphatase (38-126) U/L Total Creatine Kinase (55-170) U/L CK-MB (CK-2) (0.0-2.4) ng/mL CK-MB (CK-2) Rel Index Troponin I (0.000-0.034) ng/mL NT-Pro-B Natriuret Pep 499 pg/mL Total Protein (6.3-8.2) g/dL Albumin (3.5-5.0) g/dL - Radiology Data Radiology results: report reviewed (Chest x-ray is positive for pneumonia), image reviewed Disposition Clinical Impression: COPD exacerbation, Acute exacerbation of chronic obstructive airways disease, Fever, Nosocomial pneumonia Disposition: ADMITTED IP TO THIS HOSP Condition: Fair Is patient prescribed a controlled substance at d/c from ED?: No Referrals: Jasmin Natarajan MD [Primary Care Provider] - 1-2 days
[2017-09-13 10:34] LABS: Basophils % (A) 0 %; Eosinophils # (A) 0.2 k/uL (0-0.7); Eosinophils % (A) 1 %; HCT 40.3 % (39.0-53.0); HGB 13.4 gm/dL (13.0-17.5); Lymphocytes # (A) 0.4 k/uL (1.0-4.8); Lymphocytes % (A) 3 %; MCH 29.4 pg (25.0-35.0); MCHC 33.2 g/dL (31.0-37.0); MCV 88.6 fL (80.0-100.0); Mean Platelet Volume 9.3; Monocytes # (A) 0.5 k/uL (0-1.0); Monocytes % (A) 4 %; Neutrophils # (A) 10.8 k/uL (1.3-7.7); Neutrophils % (A) 91 %; Platelet Count 117 k/uL (150-450); RBC 4.56 m/uL (4.30-5.90); RDW 14.3 % (11.5-15.5); WBC 11.8 k/uL (3.8-10.6)
[2017-09-13 10:46] LABS: Prothrombin Time 9.8 sec (9.0-12.0)
[2017-09-13 10:47] LABS: Albumin 4.2 g/dL (3.5-5.0); Calcium 9.4 mg/dL (8.4-10.2); Magnesium 1.3 mg/dL (1.6-2.3); Potassium 5.2 mmol/L (3.5-5.1); Total Bilirubin 0.5 mg/dL (0.2-1.3); Total Protein 7.1 g/dL (6.3-8.2)
--- NOTE | 2017-09-13 10:53 | XR ---
EXAMINATION TYPE: XR chest 2V DATE OF EXAM: 09/13/2017 COMPARISON: Prior chest x-ray 09/18/2016 HISTORY: Difficulty breathing TECHNIQUE: Frontal and lateral views of the chest are obtained. FINDINGS: There is a large hiatal hernia with intrathoracic stomach is noted on prior exam. Postop c hanges in the left chest are stable. No evident pneumothorax. Airspace disease has developed in the i nterval right lower lobe. Difficult to exclude associated effusion. Prominent lung lines compatible w ith patient's history of emphysema. IMPRESSION: Right lower lobe pneumonia is recurrent. Consider aspiration.
[2017-09-13 11:00] LABS: Creatine Kinase 63 U/L (55-170)
[2017-09-13 11:12] LABS: Creatine Kinase MB 1.8 ng/mL (0.0-2.4); Troponin I <0.012 ng/mL (0.000-0.034)
[2017-09-13] MEDS ORDERED: cefTRIAXone IN SWFI 1,000 MG/10 ML SYRINGE IVP STA (11:17)
[2017-09-13] MEDS ORDERED: PIPERACILLIN-TAZOBACTAM 3.375 GM in DEXTROSE/WATER 1 50ML.BAG IVPB STA (11:17)
[2017-09-13] MEDS ORDERED: PNEUMONIA PROTOCOL UTILIZED 1 EACH MISC PO PRN (11:17)
[2017-09-13] MEDS: TAMSULOSIN 0.4 MG CAP.ER.24H PO SCH (13:34)
[2017-09-13 13:45] LABS: Glucose,Whole Blood 396 mg/dL (75-99)
[2017-09-13] MEDS: INSULIN ASPART 100 UNIT/ML 1 ML 10 ML VIAL SQ SCH ×3 (13:52→21:13)
[2017-09-13] MEDS: SODIUM CHLORIDE 0.9% 1,000 ML IV SCH ×2 (13:55→21:13)
--- NOTE | 2017-09-13 14:24 | P.HPIM ---
History of Present Illness H&P Date: 09/13/17 Chief Complaint: Difficulty breathing, cough with sputum production This is an 87-year-old male patient of Dr. Natarajan and Dr. Turcios with a previous medical history significant for diabetes mellitus type 2, hyperkalemia, moderate COPD, lung cancer status post partial lobectomy, GERD, MRSA right lower lobe pneumonia with right pleural effusion in 2017, TIAs with left-sided location and no residual deficits. Patient gives history of sudden onset last evening or shortness of breath with cough and sputum production. He denies having any fever or chills. He denies any sick contacts. He last saw Dr. Natarajan one month ago for regular appointment. He has been using a nebulizer one time a day at home. Patient was brought into [facility] emergency center for evaluation. Chest x-ray shows a right lower lobe pneumonia is recurrent. Consider aspiration. White count was elevated, troponin negative. ProBNP 499. Patient was started on azithromycin, ceftriaxone, Zosyn and admitted [facility] floor with consult to Dr. Anderson. Patient is currently on Levaquin and Zosyn for possible aspiration pneumonia. Review of Systems All systems: negative Constitutional: Denies chills, Denies fever, Denies poor appetite Eyes: denies blurred vision, denies pain Ears, nose, mouth and throat: Denies headache, Denies sore throat Cardiovascular: Denies chest pain, Denies edema, Denies leg edema, Denies shortness of breath Respiratory: Reports cough, Reports cough with sputum, Reports dyspnea Gastrointestinal: Denies abdominal pain, Denies diarrhea, Denies nausea, Denies vomiting Musculoskeletal: Denies myalgias Integumentary: Denies pruritus, Denies rash Neurological: Denies numbness, Denies weakness Psychiatric: Denies anxiety, Denies depression Endocrine: Denies fatigue, Denies weight change Past Medical History Past Medical History: Asthma, Cancer, COPD, CVA/TIA, Diabetes Mellitus, Hearing Disorder / Deafness, Hyperlipidemia, Osteoarthritis (OA), Pneumonia, Prostate Disorder Additional Past Medical History / Comment(s): L lung cancer with surgery in 2009 , R pleural effusion (MRSA), SOB with exertion, 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 History of Any Multi-Drug Resistant Organisms: MRSA Date of last positivie culture/infection: 06/23/16 MDRO Source:: sputum Past Surgical History: Orthopedic Surgery, Tonsillectomy Additional Past Surgical History / Comment(s): 03/31/2009 left lung resection with post op incisional infection and had debridements, EGD with dilation, colonoscopy/benign polypectomy, hemmoroidectomy, right shoulder arthrotomy. Past Anesthesia/Blood Transfusion Reactions: No Reported Reaction Smoking Status: Former smoker Additional Past Alcohol Use History / Comment(s): Patient was a smoker from 1951 and 1979-3 packs per day. He drinks rare alcohol. No marijuana or street drug use. He lives at home with his . - Past Family History Father Family Medical History: No Reported History Additional Family Medical History / Comment(s): Father at the age of 74yrs. He was an alcoholic. Mother Family Medical History: CVA/TIA Additional Family Medical History / Comment(s): Mother at the age of 80yrs. Sister(s) Family Medical History: Coronary Artery Disease (CAD), Myocardial Infarction ([place] ) Brother(s) Family Medical History: Neurologic Disorder Daughter(s) Family Medical History: No Reported History Son(s) Family Medical History: Cancer Additional Family Medical History / Comment(s): PROSTATE CANCER Medications and Allergies Home Medications Medication Instructions Recorded Confirmed Type Omeprazole [PriLOSEC] 20 mg PO BID 11/21/13 09/13/17 History Mirtazapine [Remeron] 7.5 mg PO HS 06/23/16 09/13/17 History Saxagliptin HCl [Onglyza] 5 mg PO DAILY 06/23/16 09/13/17 History metFORMIN HCL 1,000 mg PO BID 06/23/16 09/13/17 History Budesonide [Pulmicort] 0.5 mg INHALATION RT-BID 10/25/16 09/13/17 History glipiZIDE [Glucotrol] 2.5 mg PO AC-TID 10/25/16 09/13/17 History Atorvastatin [Lipitor] 20 mg PO HS 09/13/17 09/13/17 History Gabapentin [Neurontin] 100 mg PO BID 09/13/17 09/13/17 History Ipratropium Nebulized [Atrovent 0.5 mg INHALATION RT-TID 09/13/17 09/13/17 History Nebulized] Tamsulosin [Flomax] 0.4 mg PO DAILY 09/13/17 09/13/17 History Allergies Allergy/AdvReac Type Severity Reaction Status Date / Time No Known Allergies Allergy Verified 09/13/17 10:20 Physical Exam Vitals: Vital Signs Temp Pulse Resp BP Pulse Ox 09/13/17 13:30 98.5 F 93 18 104/51 94 L 09/13/17 12:30 98.5 F 98 19 107/53 96 09/13/17 11:32 100.8 F H 104 H 18 118/58 92 L 09/13/17 10:32 98 09/13/17 10:07 99 20 162/86 92 L 09/13/17 09:52 100.7 F H 102 H 22 160/79 87 L Intake and Output 09/12/17 09/13/17 09/13/17 22:59 06:59 14:59 Other: Weight 73.2 kg General appearance: cooperative, no acute distress - EENT Eyes: anicteric sclerae, EOMI, PERRLA, dentition normal, normal appearance ENT: hearing grossly normal, NA/AT, normal oropharynx - Neck Neck: normal ROM - Respiratory Respiratory: bilateral: Diminished wheezing tight negative: diminished, dullness , rales, rhonchi - Cardiovascular Rhythm: regular Heart sounds: normal: S1, S2 Abnormal Heart Sounds: no systolic murmur, no diastolic murmur, no rub, no S3 Gallop, no S4 Gallop, no click, no other - Gastrointestinal General gastrointestinal: normal bowel sounds, soft - Integumentary Integumentary: normal, normal turgor - Neurologic Neurologic: CNII-XII intact - Musculoskeletal Musculoskeletal: strength equal bilaterally - Psychiatric Psychiatric: A&O x's 3, appropriate affect, intact judgment & insight Results CBC & Chem 7: 09/13/17 10:16 09/13/17 10:16 Labs: Abnormal Lab Results - Last 24 Hours (Table) 09/13/17 09/13/17 09/13/17 Range/Units 10:16 10:16 13:43 WBC 11.8 H (3.8-10.6) k/uL Plt Count 117 L (150-450) k/uL Neutrophils # 10.8 H (1.3-7.7) k/uL Lymphocytes # 0.4 L (1.0-4.8) k/uL Potassium 5.2 H (3.5-5.1) mmol/L BUN 24 H (9-20) mg/dL Glucose 210 H (74-99) mg/dL POC Glucose (mg/dL) 396 H (75-99) mg/dL Magnesium 1.3 L (1.6-2.3) mg/dL Thrombosis Risk Factor Assmnt - DVT/VTE Prophylaxis DVT/VTE Prophylaxis: Pharmacologic Prophylaxis ordered - Choose All That Apply Any of the Below Risk Factors Present?: Yes Each Factor Represents 1 point: Abnormal pulmonary function (COPD), Serious lung disease incl. pneumonia (< 1month) Other Risk Factors: Yes Each Risk Factor Represents 2 Points: Malignancy Each Risk Factor Represents 3 Points: Age 75 years or older Other congenital or acquired thrombophilia - If yes, enter type in comment: No Thrombosis Risk Factor Assessment Total Risk Factor Score: 7 Thrombosis Risk Factor Assessment Level: High Risk Assessment and Plan Plan: 1. Acute hypoxic respiratory failure secondary to right sided pneumonia, possible aspiration pneumonia and possible COPD exacerbation with sepsis on presentation. Patient is currently on Levaquin and Zosyn. DuoNeb treatments 4 times daily, Pulmicort 0.5 mg twice daily Consult with Dr. Anderson. 2. Diabetes mellitus type 2. Continue patient on Glucotrol 2.5 mg orally 3 times every day, metformin 1000 g orally twice every day, continue Tradjenta 5 mg orally once every day. Place the patient on the sliding scale insulin, BGM before each meal and at bedtime. 4. History of lung cancer status post partial resection. He currently is not on any regimented program, not requiring any chemo, and does not follow or need any follow-up with oncology according to the , last chest CT 06/26/2016 are the following findings tiny right-sided pleural effusion, patchy groundglass opacity in the posterior superior left upper lung underlying asbestosis exposure was suspected based on CT persistent reticulation and groundglass opacity noted in the posterior right upper lobe and right lower lobe follows with pulmonary outpatient. 5. GERD and GI prophylaxis. Continue Protonix. 6. Hyperlipidemia. Continue Lipitor 20 mg at bedtime. 7. Diaphragmatic hernia. Stable at this point in time. 8. Enlarged prostate. Stable. 9. DVT prophylaxis. Lovenox 40 mg subcutaneously every 24 hours. 10. Admit to inpatient. Estimate a length of stay 2 midnights. Discharge plan: Return home most likely with homecare Impression and plan of care have been directed as dictated by the signing physician. Renita Barger nurse practitioner acting as scribe for signing physician.
[2017-09-13] MEDS: IPRATROPIUM-ALBUTEROL 3 ML NEB INHALATION SCH ×3 (15:05→19:32)
[2017-09-13] MEDS ORDERED: LEVOFLOXACIN 750MG-D5W PMX 750 MG in DEXTROSE/WATER 1 150ML.BAG IVPB SCH (16:00)
[2017-09-13 16:44] LABS: Glucose,Whole Blood 254 mg/dL (75-99)
[2017-09-13] MEDS: PIPERACILLIN-TAZOBACTAM 3.375 GM in DEXTROSE/WATER 1 50ML.BAG IVPB SCH (17:41)
[2017-09-13] MEDS: metFORMIN 500 MG TAB PO SCH (17:41)
[2017-09-13] MEDS: BUDESONIDE 0.5 MG/2 ML NEBU INHALATION SCH (19:32)
[2017-09-13 21:09] LABS: Glucose,Whole Blood 119 mg/dL (75-99)
[2017-09-13] MEDS: ATORVASTATIN 20 MG TAB PO SCH (21:12)
[2017-09-13] MEDS: GABAPENTIN 100 MG CAP PO SCH (21:12)
[2017-09-13] MEDS: MIRTAZAPINE 15 MG TAB PO SCH (21:12)
[2017-09-14 02:08] LABS: Hemoglobin A1C 7.3 % (4.0-6.0)
[2017-09-14] MEDS: PIPERACILLIN-TAZOBACTAM 3.375 GM in DEXTROSE/WATER 1 50ML.BAG IVPB SCH ×3 (05:47→17:04)
[2017-09-14 07:25] LABS: Glucose,Whole Blood 97 mg/dL (75-99)
[2017-09-14] MEDS: INSULIN ASPART 100 UNIT/ML 1 ML 10 ML VIAL SQ SCH ×4 (07:33→22:43)
[2017-09-14] MEDS: metFORMIN 500 MG TAB PO SCH ×2 (07:41→17:04)
[2017-09-14] MEDS: SODIUM CHLORIDE 0.9% 1,000 ML IV SCH ×2 (07:42→17:04)
[2017-09-14] MEDS: PANTOPRAZOLE 40 MG TABLET PO SCH ×2 (07:42→17:04)
[2017-09-14] MEDS: LINAGLIPTIN 5 MG TABLET PO SCH (07:43)
[2017-09-14] MEDS: GABAPENTIN 100 MG CAP PO SCH ×2 (07:43→22:44)
[2017-09-14] MEDS: ENOXAPARIN 40 MG/0.4 ML SYRINGE SQ SCH (07:43)
[2017-09-14] MEDS: TAMSULOSIN 0.4 MG CAP.ER.24H PO SCH (07:43)
[2017-09-14] MEDS: BUDESONIDE 0.5 MG/2 ML NEBU INHALATION SCH ×2 (07:52→20:39)
[2017-09-14] MEDS: IPRATROPIUM-ALBUTEROL 3 ML NEB INHALATION SCH ×4 (07:52→20:39)
[2017-09-14 08:16] LABS: HCT 33.5 % (39.0-53.0); HGB 10.9 gm/dL (13.0-17.5); MCHC 32.5 g/dL (31.0-37.0); MCV 89.2 fL (80.0-100.0); Mean Platelet Volume 9.2; Platelet Count 104 k/uL (150-450); RBC 3.75 m/uL (4.30-5.90); RDW 14.5 % (11.5-15.5)
[2017-09-14 08:36] LABS: Calcium 8.7 mg/dL (8.4-10.2); Potassium 4.2 mmol/L (3.5-5.1)
[2017-09-14] MEDS ORDERED: cefTRIAXone IN SWFI 1,000 MG/10 ML SYRINGE IVP SCH (09:00)
[2017-09-14] MEDS ORDERED: AZITHROMYCIN 500 MG TAB PO SCH (09:00)
--- NOTE | 2017-09-14 09:10 | XR ---
EXAMINATION TYPE: XR chest 2V DATE OF EXAM: 09/14/2017 COMPARISON: Prior chest x-ray 09/13/2017 HISTORY: Pneumonia TECHNIQUE: Frontal and lateral views of the chest are obtained. FINDINGS: Findings are stable. IMPRESSION: Correlate for right lower lobe pneumonia. Follow-up recommended.
[2017-09-14 12:30] LABS: Glucose,Whole Blood 159 mg/dL (75-99)
--- NOTE | 2017-09-14 15:11 | P.PN ---
Subjective Progress Note Date: 09/14/17 This is an 87-year-old male patient of Dr. Natarajan and Dr. Turcios with a previous medical history significant for diabetes mellitus type 2, hyperkalemia, moderate COPD, lung cancer status post partial lobectomy, GERD, MRSA right lower lobe pneumonia with right pleural effusion in 2017, TIAs with left-sided location and no residual deficits. Patient gives history of sudden onset last evening or shortness of breath with cough and sputum production. He denies having any fever or chills. He denies any sick contacts. He last saw Dr. Natarajan one month ago for regular appointment. He has been using a nebulizer one time a day at home. Patient was brought into [facility] emergency center for evaluation. Chest x-ray shows a right lower lobe pneumonia is recurrent. Consider aspiration. White count was elevated, troponin negative. ProBNP 499. Patient was started on azithromycin, ceftriaxone, Zosyn and admitted to the [facility] floor with consult to Dr. Anderson. Patient is currently on Levaquin and Zosyn for possible aspiration pneumonia. 09/14: Consult with Dr. Damon has been added. Repeat chest x-ray shows right lower lobe pneumonia. He has pulse ox seen 94-95% on 2 L nasal cannula. Otherwise vital signs have been stable and patient is been afebrile for the past 24 hours. Patient is currently on Levaquin and Zosyn. Lung sounds are improving. Patient denies any abdominal pain, nausea or vomiting. Objective - Vital Signs Vital signs: Vital Signs Temp 97.5 F L 09/14/17 06:14 Pulse 84 09/14/17 08:05 Resp 16 09/14/17 07:52 BP 124/65 09/14/17 06:14 Pulse Ox 95 09/14/17 06:14 Intake & Output 09/13/17 09/14/17 09/14/17 18:59 06:59 18:59 Intake Total 650 Balance 650 Weight 73.2 kg Intake: Oral 650 Other: # Voids 3 - Exam General appearance: cooperative, no acute distress - EENT Eyes: anicteric sclerae, EOMI, PERRLA, dentition normal, normal appearance ENT: hearing grossly normal, NA/AT, normal oropharynx - Neck Neck: normal ROM - Respiratory Respiratory: bilateral: Clear negative: diminished, dullness, rales, rhonchi - Cardiovascular Rhythm: regular Heart sounds: normal: S1, S2 Abnormal Heart Sounds: no systolic murmur, no diastolic murmur, no rub, no S3 Gallop, no S4 Gallop, no click, no other - Gastrointestinal General gastrointestinal: normal bowel sounds, soft - Integumentary Integumentary: normal, normal turgor - Neurologic Neurologic: CNII-XII intact - Musculoskeletal Musculoskeletal: strength equal bilaterally - Psychiatric Psychiatric: A&O x's 3, appropriate affect, intact judgment & insight - Labs CBC & Chem 7: 09/14/17 07:57 09/14/17 07:57 Labs: Abnormal Lab Results - Last 24 Hours (Table) 09/13/17 09/13/17 09/13/17 Range/Units 10:16 10:16 10:16 WBC 11.8 H (3.8-10.6) k/uL RBC (4.30-5.90) m/uL Hgb (13.0-17.5) gm/dL Hct (39.0-53.0) % Plt Count 117 L (150-450) k/uL Neutrophils # 10.8 H (1.3-7.7) k/uL Lymphocytes # 0.4 L (1.0-4.8) k/uL Potassium 5.2 H (3.5-5.1) mmol/L BUN 24 H (9-20) mg/dL Glucose 210 H (74-99) mg/dL POC Glucose (mg/dL) (75-99) mg/dL Hemoglobin A1c 7.3 H (4.0-6.0) % Magnesium 1.3 L (1.6-2.3) mg/dL 09/13/17 09/13/17 09/13/17 Range/Units 13:43 16:43 20:33 WBC (3.8-10.6) k/uL RBC (4.30-5.90) m/uL Hgb (13.0-17.5) gm/dL Hct (39.0-53.0) % Plt Count (150-450) k/uL Neutrophils # (1.3-7.7) k/uL Lymphocytes # (1.0-4.8) k/uL Potassium (3.5-5.1) mmol/L BUN (9-20) mg/dL Glucose (74-99) mg/dL POC Glucose (mg/dL) 396 H 254 H 119 H (75-99) mg/dL Hemoglobin A1c (4.0-6.0) % Magnesium (1.6-2.3) mg/dL 09/14/17 09/14/17 Range/Units 07:57 07:57 WBC (3.8-10.6) k/uL RBC 3.75 L (4.30-5.90) m/uL Hgb 10.9 L (13.0-17.5) gm/dL Hct 33.5 L (39.0-53.0) % Plt Count 104 L (150-450) k/uL Neutrophils # (1.3-7.7) k/uL Lymphocytes # (1.0-4.8) k/uL Potassium (3.5-5.1) mmol/L BUN 22 H (9-20) mg/dL Glucose 102 H (74-99) mg/dL POC Glucose (mg/dL) (75-99) mg/dL Hemoglobin A1c (4.0-6.0) % Magnesium (1.6-2.3) mg/dL Assessment and Plan Plan: 1. Acute hypoxic respiratory failure secondary to right sided pneumonia, possible aspiration pneumonia and possible COPD exacerbation with sepsis on presentation. Patient is currently on Levaquin and Zosyn. DuoNeb treatments 4 times daily, Pulmicort 0.5 mg twice daily. Consult with Dr. Anderson. 2. Diabetes mellitus type 2. Continue patient on Glucotrol 2.5 mg orally 3 times every day, metformin 1000 g orally twice every day, continue Tradjenta 5 mg orally once every day. Place the patient on the sliding scale insulin, BGM before each meal and at bedtime. 4. History of lung cancer status post partial resection. He currently is not on any regimented program, not requiring any chemo, and does not follow or need any follow-up with oncology according to the , last chest CT 06/26/2016 are the following findings tiny right-sided pleural effusion, patchy groundglass opacity in the posterior superior left upper lung underlying asbestosis exposure was suspected based on CT persistent reticulation and groundglass opacity noted in the posterior right upper lobe and right lower lobe follows with pulmonary outpatient. 5. GERD and GI prophylaxis. Continue Protonix. 6. Hyperlipidemia. Continue Lipitor 20 mg at bedtime. 7. Diaphragmatic hernia. Stable at this point in time. 8. Enlarged prostate. Stable. 9. DVT prophylaxis. Lovenox 40 mg subcutaneously every 24 hours. 10. Admit to inpatient. Estimate a length of stay 2 midnights. Discharge plan: Return home most likely with homecare Impression and plan of care have been directed as dictated by the signing physician. Renita Barger nurse practitioner acting as scribe for signing physician.
[2017-09-14 17:03] LABS: Glucose,Whole Blood 87 mg/dL (75-99)
--- NOTE | 2017-09-14 17:39 | P.CNPUL ---
History of Present Illness Consult date: 09/14/17 Requesting physician: Wei Cerrato Reason for consult: dyspnea, cough, COPD, pneumonia, abnormal CXR/CT Chief complaint: Dyspnea, fever, chills, right lower lobe pneumonia History of present illness: Mr. Ruelas is a 87-year-old white male patient of Dr. Natarajan, presented to the emergency department on 09/13/2017 at around 10:00 in the morning, with complaints of increasing dyspnea, fever, chills, yellow phlegm production. Patient denies sick contacts, denies any history of recent hospitalization or travel. Past medical history non-small cell lung cancer in with history of left lower lobectomy in 2009, prior episodes of pneumonia due to MRSA, type 2 diabetes mellitus, hyperlipidemia, iron deficiency anemia, TIA, mild chronic obstructive pulmonary disease, GERD, osteoarthritis, and hiatal hernia. Patient is a former smoker, carries a [id number] smoking history. Patient follows with Dr. Turcios in the pulmonary office, although has not been seen there for for over a year. He is not on oxygen at his baseline, his last PFT showed an FEV1 of 1.9 L or 76% of predicted, consistent with stage II COPD. He is on nebulized bronchodilators at home, DuoNeb and Pulmicort. Chest x-ray was completed and showed right lower lobe airspace disease. EKG showed sinus tach with a rate of 104 BPM. Initial labs showed a CBC of 11.8, hemoglobin of 13.4, sodium of 137, potassium is 5.2, BUN of 24, creatinine 0.94, magnesium of 1.3, normal LFTs, troponin negative 1, proBNP is within normal limits at 499. Patient did have grade fevers on presentation, with a temp of 100.8F. He was hypoxemic on presentation as well, with a pulse ox of 87% on room air. And was placed on supplemental oxygen. He received a dose of azithromycin and Rocephin , which was later switched to Levaquin and Zosyn. She was given a liter bolus in the emergency department, and his maintenance IV fluids are infusing at a rate of 100 ML per hour. Blood culture showed no growth at the 24-hour genesis, sputum culture was sent today. We're asked to see the patient in consultation for lower lobe pneumonia,community acquired versus aspiration. Review of Systems All systems: negative Constitutional: Denies chills, Denies fever Eyes: denies blurred vision, denies pain Ears, nose, mouth and throat: Denies headache, Denies sore throat Cardiovascular: Denies chest pain, Denies shortness of breath Respiratory: Reports cough with sputum, Reports dyspnea, Reports respiratory infections, Denies cough Gastrointestinal: Denies abdominal pain, Denies diarrhea, Denies nausea, Denies vomiting Musculoskeletal: Denies myalgias Integumentary: Denies pruritus, Denies rash Neurological: Denies numbness, Denies weakness Psychiatric: Denies anxiety, Denies depression Endocrine: Denies fatigue, Denies weight change Past Medical History Past Medical History: Asthma, Cancer, COPD, CVA/TIA, Diabetes Mellitus, Hearing Disorder / Deafness, Hyperlipidemia, Osteoarthritis (OA), Pneumonia, Prostate Disorder Additional Past Medical History / Comment(s): L lung cancer with surgery in 2009 , R pleural effusion (MRSA), SOB with exertion, 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 History of Any Multi-Drug Resistant Organisms: MRSA Date of last positivie culture/infection: 06/23/16 MDRO Source:: sputum Past Surgical History: Orthopedic Surgery, Tonsillectomy Additional Past Surgical History / Comment(s): 03/31/2009 left lung resection with post op incisional infection and had debridements, EGD with dilation, colonoscopy/benign polypectomy, hemmoroidectomy, right shoulder arthrotomy. Past Anesthesia/Blood Transfusion Reactions: No Reported Reaction Smoking Status: Former smoker Additional Past Alcohol Use History / Comment(s): Patient was a smoker from 1952 and 1979-3 packs per day. He drinks rare alcohol. No marijuana or street drug use. He lives at home with his . - Past Family History Father Family Medical History: No Reported History Additional Family Medical History / Comment(s): Father at the age of 74yrs. He was an alcoholic. Mother Family Medical History: CVA/TIA Additional Family Medical History / Comment(s): Mother at the age of 80yrs. Sister(s) Family Medical History: Coronary Artery Disease (CAD), Myocardial Infarction ([place] ) Brother(s) Family Medical History: Neurologic Disorder Daughter(s) Family Medical History: No Reported History Son(s) Family Medical History: Cancer Additional Family Medical History / Comment(s): PROSTATE CANCER Medications and Allergies Home Medications Medication Instructions Recorded Confirmed Type Omeprazole [PriLOSEC] 20 mg PO BID 11/21/13 09/13/17 History Mirtazapine [Remeron] 7.5 mg PO HS 06/23/16 09/13/17 History Saxagliptin HCl [Onglyza] 5 mg PO DAILY 06/23/16 09/13/17 History metFORMIN HCL 1,000 mg PO BID 06/23/16 09/13/17 History Budesonide [Pulmicort] 0.5 mg INHALATION RT-BID 10/25/16 09/13/17 History glipiZIDE [Glucotrol] 2.5 mg PO AC-TID 10/25/16 09/13/17 History Atorvastatin [Lipitor] 20 mg PO HS 09/13/17 09/13/17 History Gabapentin [Neurontin] 100 mg PO BID 09/13/17 09/13/17 History Ipratropium Nebulized [Atrovent 0.5 mg INHALATION RT-TID 09/13/17 09/13/17 History Nebulized] Tamsulosin [Flomax] 0.4 mg PO DAILY 09/13/17 09/13/17 History Allergies Allergy/AdvReac Type Severity Reaction Status Date / Time No Known Allergies Allergy Verified 09/13/17 10:20 Physical Exam Vitals: Vital Signs Temp Pulse Pulse Resp BP Pulse Ox 09/14/17 14:31 97.6 F 86 17 102/57 94 L 09/14/17 13:00 95 09/14/17 12:00 80 14 09/14/17 11:49 80 14 09/14/17 08:05 84 16 09/14/17 07:52 80 16 09/14/17 06:14 97.5 F L 85 18 124/65 95 09/13/17 19:46 80 16 09/13/17 19:34 84 16 09/13/17 16:26 97.0 F L 84 16 92/48 96 Intake and Output 09/14/17 09/14/17 09/14/17 06:59 14:59 22:59 Intake Total 350 Balance 350 Intake: Oral 350 Other: # Voids 3 2 # Bowel Movements 0 - Constitutional General appearance: cooperative, no acute distress - EENT Eyes: EOMI Ears: bilateral: normal - Neck Neck: no lymphadenopathy, normal ROM Carotids: bilateral: upstroke normal Thyroid: bilateral: normal size - Respiratory Respiratory: bilateral: rales (Coarse inspiratory rales over right middle and lower lobes) - Cardiovascular Rhythm: regular Heart sounds: normal: S1, S2 Abnormal Heart Sounds: systolic murmur ankle Peripheral Edema: absent: None foot Peripheral Edema: absent: None - Gastrointestinal General gastrointestinal: no organomegaly, soft, no tenderness - Integumentary Integumentary: normal turgor - Neurologic Neurologic: CNII-XII intact - Musculoskeletal Musculoskeletal: strength equal bilaterally - Psychiatric Psychiatric: A&O x's 3, appropriate affect, intact judgment & insight Results - Laboratory Findings CBC and BMP: 09/14/17 07:57 09/14/17 07:57 PT/INR, D-dimer PT 9.8 sec (9.0-12.0) 09/13/17 10:16 INR 1.0 (<1.2) 09/13/17 10:16 Abnormal lab findings: Abnormal Labs 09/13/17 09/13/17 09/13/17 10:16 10:16 10:16 WBC 11.8 H RBC Hgb Hct Plt Count 117 L Neutrophils # 10.8 H Lymphocytes # 0.4 L Potassium 5.2 H BUN 24 H Glucose 210 H POC Glucose (mg/dL) Hemoglobin A1c 7.3 H Magnesium 1.3 L 09/13/17 09/13/17 09/13/17 13:43 16:43 20:33 WBC RBC Hgb Hct Plt Count Neutrophils # Lymphocytes # Potassium BUN Glucose POC Glucose (mg/dL) 396 H 254 H 119 H Hemoglobin A1c Magnesium 09/14/17 09/14/17 09/14/17 07:57 07:57 12:20 WBC RBC 3.75 L Hgb 10.9 L Hct 33.5 L Plt Count 104 L Neutrophils # Lymphocytes # Potassium BUN 22 H Glucose 102 H POC Glucose (mg/dL) 159 H Hemoglobin A1c Magnesium - Diagnostic Findings Chest x-ray: report reviewed, image reviewed Additional studies: EKG reviewed Assessment and Plan Plan: Assessment: #1. Acute hypoxemic respiratory failure secondary to right lower lobe pneumonia , most likely aspiration related, based on history of a large hiatal hernia #2. Fever, chills, and production, shortness of breath, related to the above #3. COPD, GOLD stage II, FEV1 of 1.92 L or 76% of predicted as last documented in June 2016 #4. History of non-small cell lung cancer, that is post left lower lobectomy 2009, without recurrence #5. Type 2 diabetes mellitus #6. Iron deficiency anemia #7. Previous episodes of pneumonia due to methicillin-resistant Staphylococcus aureus, 2017 #8. GERD/reflux #9. Hiatal hernia #10. Remote history of nicotine dependence, patient carries 36 pack-year smoking history Plan: Continue current antibiotic coverage, await results the results of the cultures. Continue nebulized bronchodilators, and Pulmicort, IV hydration, monitor fever pattern, continue monitoring labs, renal profile, electrolytes. Continue to follow. I performed a history & physical examination of the patient and discussed their management with my nurse practitioner, Gabrielle Whitt. I reviewed the nurse practitioner's note and agree with the documented findings and plan of care. Lung sounds are positive for coarse inspiratory crackles over right middle and lower lobe. The findings and the impression was discussed with the patient. I attest to the documentation by the nurse practitioner. Time with Patient: Greater than 30
[2017-09-14 21:17] LABS: Glucose,Whole Blood 131 mg/dL (75-99)
[2017-09-14] MEDS: ATORVASTATIN 20 MG TAB PO SCH (22:44)
[2017-09-14] MEDS: MIRTAZAPINE 15 MG TAB PO SCH (22:44)
[2017-09-15] MEDS: PIPERACILLIN-TAZOBACTAM 3.375 GM in DEXTROSE/WATER 1 50ML.BAG IVPB SCH ×4 (00:15→23:17)
[2017-09-15] MEDS: SODIUM CHLORIDE 0.9% 1,000 ML IV SCH ×3 (05:32→23:18)
[2017-09-15 07:53] LABS: Glucose,Whole Blood 55 mg/dL (75-99)
[2017-09-15 07:53] LABS: Glucose,Whole Blood 55 mg/dL (75-99)
[2017-09-15 07:56] LABS: Glucose,Whole Blood 76 mg/dL (75-99)
[2017-09-15] MEDS: IPRATROPIUM-ALBUTEROL 3 ML NEB INHALATION SCH ×4 (08:10→19:13)
[2017-09-15] MEDS: BUDESONIDE 0.5 MG/2 ML NEBU INHALATION SCH ×2 (08:10→19:13)
[2017-09-15] MEDS: ENOXAPARIN 40 MG/0.4 ML SYRINGE SQ SCH (08:18)
[2017-09-15] MEDS: LINAGLIPTIN 5 MG TABLET PO SCH (08:18)
[2017-09-15] MEDS: PANTOPRAZOLE 40 MG TABLET PO SCH ×2 (08:18→17:47)
[2017-09-15] MEDS: TAMSULOSIN 0.4 MG CAP.ER.24H PO SCH (08:18)
[2017-09-15] MEDS: GABAPENTIN 100 MG CAP PO SCH ×2 (08:18→20:44)
[2017-09-15] MEDS: metFORMIN 500 MG TAB PO SCH ×3 (08:18→17:47)
[2017-09-15] MEDS: INSULIN ASPART 100 UNIT/ML 1 ML 10 ML VIAL SQ SCH ×4 (08:18→22:45)
[2017-09-15 11:25] LABS: Glucose,Whole Blood 203 mg/dL (75-99)
--- NOTE | 2017-09-15 12:04 | P.PN ---
Subjective Progress Note Date: 09/15/17 This is an 87-year-old male patient of Dr. Natarajan and Dr. Turcios with a previous medical history significant for diabetes mellitus type 2, hyperkalemia, moderate COPD, lung cancer status post partial lobectomy, GERD, MRSA right lower lobe pneumonia with right pleural effusion in 2017, TIAs with left-sided location and no residual deficits. Patient gives history of sudden onset last evening or shortness of breath with cough and sputum production. He denies having any fever or chills. He denies any sick contacts. He last saw Dr. Natarajan one month ago for regular appointment. He has been using a nebulizer one time a day at home. Patient was brought into [facility] emergency center for evaluation. Chest x-ray shows a right lower lobe pneumonia is recurrent. Consider aspiration. White count was elevated, troponin negative. ProBNP 499. Patient was started on azithromycin, ceftriaxone, Zosyn and admitted to the [facility] floor with consult to Dr. Anderson. Patient is currently on Levaquin and Zosyn for possible aspiration pneumonia. 09/14: Consult with Dr. Anderson has been added. Repeat chest x-ray shows right lower lobe pneumonia. He has pulse ox seen 94-95% on 2 L nasal cannula. Otherwise vital signs have been stable and patient is been afebrile for the past 24 hours. Patient is currently on Levaquin and Zosyn. Lung sounds are improving. Patient denies any abdominal pain, nausea or vomiting. 09/15: Patient states that he is feeling a little bit better. His breathing is improving slowly. He feels he is almost ready to go home but would like to stay until tomorrow. Patient did have hypoglycemia this morning with blood sugar of 55. Hemoglobin A1c is 7.3. Objective - Vital Signs Vital signs: Vital Signs Temp 97.6 F 09/15/17 06:28 Pulse 80 09/15/17 08:25 Resp 18 09/15/17 06:28 BP 115/57 09/15/17 06:28 Pulse Ox 93 L 09/15/17 08:12 Intake & Output 09/14/17 09/15/17 09/15/17 18:59 06:59 18:59 Intake Total 1040 Balance 1040 Intake: Oral 1040 Other: # Voids 2 1 # Bowel Movements 0 - Exam General appearance: cooperative, no acute distress - EENT Eyes: anicteric sclerae, EOMI, PERRLA, dentition normal, normal appearance ENT: hearing grossly normal, NA/AT, normal oropharynx - Neck Neck: normal ROM - Respiratory Respiratory: bilateral: Clear negative: diminished, dullness, rales, rhonchi - Cardiovascular Rhythm: regular Heart sounds: normal: S1, S2 Abnormal Heart Sounds: no systolic murmur, no diastolic murmur, no rub, no S3 Gallop, no S4 Gallop, no click, no other - Gastrointestinal General gastrointestinal: normal bowel sounds, soft - Integumentary Integumentary: normal, normal turgor - Neurologic Neurologic: CNII-XII intact - Musculoskeletal Musculoskeletal: strength equal bilaterally - Psychiatric Psychiatric: A&O x's 3, appropriate affect, intact judgment & insight - Labs CBC & Chem 7: 09/14/17 07:57 09/14/17 07:57 Labs: Abnormal Lab Results - Last 24 Hours (Table) 09/14/17 09/14/17 09/15/17 Range/Units 12:20 20:53 07:39 POC Glucose (mg/dL) 159 H 131 H 55 L (75-99) mg/dL 09/15/17 Range/Units 07:40 POC Glucose (mg/dL) 55 L (75-99) mg/dL Microbiology - Last 24 Hours (Table) 09/13/17 16:15 Gram Stain - Preliminary Sputum 09/13/17 10:16 Blood Culture - Preliminary Blood No Growth after 24 hours Assessment and Plan Plan: 1. Acute hypoxic respiratory failure secondary to right sided pneumonia, possible aspiration pneumonia and possible COPD exacerbation with sepsis on presentation. Patient is currently on Levaquin and Zosyn. DuoNeb treatments 4 times daily, Pulmicort 0.5 mg twice daily. Consult with Dr. Anderson. 2. Diabetes mellitus type 2 with hemoglobin A1c of 7.3, uncontrolled with hypoglycemia. Continue patient on Glucotrol 2.5 mg orally 3 times every day, metformin 1000 g orally twice every day, continue Tradjenta 5 mg orally once every day. Place the patient on the sliding scale insulin, BGM before each meal and at bedtime. 4. History of lung cancer status post partial resection. He currently is not on any regimented program, not requiring any chemo, and does not follow or need any follow-up with oncology according to the , last chest CT 06/26/2016 are the following findings tiny right-sided pleural effusion, patchy groundglass opacity in the posterior superior left upper lung underlying asbestosis exposure was suspected based on CT persistent reticulation and groundglass opacity noted in the posterior right upper lobe and right lower lobe follows with pulmonary outpatient. 5. GERD and GI prophylaxis. Continue Protonix. 6. Hyperlipidemia. Continue Lipitor 20 mg at bedtime. 7. Diaphragmatic hernia. Stable at this point in time. 8. Enlarged prostate. Stable. 9. DVT prophylaxis. Lovenox 40 mg subcutaneously every 24 hours. Discharge plan: Return home most likely with homecare on Sunday Impression and plan of care have been directed as dictated by the signing physician. Renita Barger nurse practitioner acting as scribe for signing physician.
--- NOTE | 2017-09-15 14:17 | P.PN ---
Subjective Progress Note Date: 09/15/17 Principal diagnosis: Acute hypoxic respiratory failure secondary to right lower lobe pneumonia, suspect aspiration secondary to large hiatal hernia. Mr. Ruelas is a 87-year-old white male patient of Dr. Natarajan, presented to the emergency department on 09/13/2017 at around 10:00 in the morning, with complaints of increasing dyspnea, fever, chills, yellow phlegm production. Patient denies sick contacts, denies any history of recent hospitalization or travel. Past medical history non-small cell lung cancer in with history of left lower lobectomy in 2009, prior episodes of pneumonia due to MRSA, type 2 diabetes mellitus, hyperlipidemia, iron deficiency anemia, TIA, mild chronic obstructive pulmonary disease, GERD, osteoarthritis, and hiatal hernia. Patient is a former smoker, carries a [id number] smoking history. Patient follows with Dr. Turcios in the pulmonary office, although has not been seen there for for over a year. He is not on oxygen at his baseline, his last PFT showed an FEV1 of 1.9 L or 76% of predicted, consistent with stage II COPD. He is on nebulized bronchodilators at home, DuoNeb and Pulmicort. Chest x-ray was completed and showed right lower lobe airspace disease. EKG showed sinus tach with a rate of 104 BPM. Initial labs showed a CBC of 11.8, hemoglobin of 13.4, sodium of 137, potassium is 5.2, BUN of 24, creatinine 0.94, magnesium of 1.3, normal LFTs, troponin negative 1, proBNP is within normal limits at 499. Patient did have grade fevers on presentation, with a temp of 100.8F. He was hypoxemic on presentation as well, with a pulse ox of 87% on room air. And was placed on supplemental oxygen. He received a dose of azithromycin and Rocephin , which was later switched to Levaquin and Zosyn. She was given a liter bolus in the emergency department, and his maintenance IV fluids are infusing at a rate of 100 ML per hour. Blood culture showed no growth at the 24-hour genesis, sputum culture was sent today. We're asked to see the patient in consultation for lower lobe pneumonia,community acquired versus aspiration. The patient is seen again today 09/15/2017 in follow-up on the regular medical floor. He is awake and alert in no acute distress. He is resting quite comfortably in bed. He states he is breathing better today as compared to yesterday. He denies any worsening shortness of breath, cough or congestion. No chills or night sweats. He is currently afebrile. Maintaining O2 saturations in the 90s on room air. Hemodynamically stable. Sputum cultures positive for melina only thus far. Blood cultures negative. He is currently on Zosyn, Levaquin, bronchodilators. Objective - Vital Signs Vital signs: Vital Signs Temp 97.6 F 09/15/17 06:28 Pulse 80 09/15/17 12:22 Resp 16 09/15/17 08:07 BP 115/57 09/15/17 06:28 Pulse Ox 93 L 09/15/17 08:12 Intake & Output 09/14/17 09/15/17 09/15/17 18:59 06:59 18:59 Intake Total 1040 Balance 1040 Intake: Oral 1040 Other: # Voids 2 1 # Bowel Movements 0 - Exam - Constitutional General appearance: cooperative, no acute distress - EENT Eyes: EOMI Ears: bilateral: normal - Neck Neck: no lymphadenopathy, normal ROM Carotids: bilateral: upstroke normal Thyroid: bilateral: normal size - Respiratory Respiratory: bilateral: rales (Coarse inspiratory rales over right middle and lower lobes) - Cardiovascular Rhythm: regular Heart sounds: normal: S1, S2 Abnormal Heart Sounds: systolic murmur ankle Peripheral Edema: absent: None foot Peripheral Edema: absent: None - Gastrointestinal General gastrointestinal: no organomegaly, soft, no tenderness - Integumentary Integumentary: normal turgor - Neurologic Neurologic: CNII-XII intact - Musculoskeletal Musculoskeletal: strength equal bilaterally - Psychiatric Psychiatric: A&O x's 3, appropriate affect, intact judgment & insight - Labs CBC & Chem 7: 09/14/17 07:57 09/14/17 07:57 Labs: Abnormal Lab Results - Last 24 Hours (Table) 09/14/17 09/15/17 09/15/17 Range/Units 20:53 07:39 07:40 POC Glucose (mg/dL) 131 H 55 L 55 L (75-99) mg/dL 09/15/17 Range/Units 11:23 POC Glucose (mg/dL) 203 H (75-99) mg/dL Microbiology - Last 24 Hours (Table) 09/13/17 16:15 Gram Stain - Preliminary Sputum Sputum Culture - Preliminary Melina albicans 09/13/17 10:16 Blood Culture - Preliminary Blood No Growth after 48 hours Assessment and Plan Assessment: Assessment: #1. Acute hypoxemic respiratory failure secondary to right lower lobe pneumonia , most likely aspiration related, based on history of a large hiatal hernia #2. Fever, chills, and production, shortness of breath, related to the above #3. COPD, GOLD stage II, FEV1 of 1.92 L or 76% of predicted as last documented in June 2016 #4. History of non-small cell lung cancer, that is post left lower lobectomy 2009, without recurrence #5. Type 2 diabetes mellitus #6. Iron deficiency anemia #7. Previous episodes of pneumonia due to methicillin-resistant Staphylococcus aureus, 2017 #8. GERD/reflux #9. Hiatal hernia #10. Remote history of nicotine dependence, patient carries 36 pack-year smoking history Plan: The patient was seen and evaluated by Dr. Anderson. The patient is stable from the pulmonary standpoint. We'll continue with his current treatment plan. We will increase his activity as tolerated. We'll continue to follow. I, the cosigning physician, performed a history & physical examination of the patient. Lungs sounds with crackles in the right posterior base. Maintaining good O2 saturations in the 90s on room air. I discussed the assessment and plan of care with my nurse practitioner, Bela Keller. I attest to the above note as dictated by her.
[2017-09-15] MEDS ORDERED: LEVOFLOXACIN 750 MG TAB PO SCH (16:00)
[2017-09-15 17:24] LABS: Glucose,Whole Blood 139 mg/dL (75-99)
[2017-09-15] MEDS: ATORVASTATIN 20 MG TAB PO SCH (20:44)
[2017-09-15] MEDS: MIRTAZAPINE 15 MG TAB PO SCH (20:44)
[2017-09-15 21:17] LABS: Glucose,Whole Blood 136 mg/dL (75-99)
[2017-09-16 01:10] VITALS: RESP 18
[2017-09-16 02:23] LABS: Glucose,Whole Blood 105 mg/dL (75-99)
[2017-09-16 06:16] VITALS: BP 173/72; TEMP 97.1
[2017-09-16 07:27] LABS: Glucose,Whole Blood 102 mg/dL (75-99)
[2017-09-16] MEDS: INSULIN ASPART 100 UNIT/ML 1 ML 10 ML VIAL SQ SCH (07:37)
[2017-09-16] MEDS: PIPERACILLIN-TAZOBACTAM 3.375 GM in DEXTROSE/WATER 1 50ML.BAG IVPB SCH (07:49)
[2017-09-16] MEDS: BUDESONIDE 0.5 MG/2 ML NEBU INHALATION SCH (08:50)
[2017-09-16] MEDS: IPRATROPIUM-ALBUTEROL 3 ML NEB INHALATION SCH (08:51)
[2017-09-16 08:52] VITALS: PULSE 84
[2017-09-16] MEDS: GABAPENTIN 100 MG CAP PO SCH (09:24)
[2017-09-16] MEDS: ENOXAPARIN 40 MG/0.4 ML SYRINGE SQ SCH (09:24)
[2017-09-16] MEDS: PANTOPRAZOLE 40 MG TABLET PO SCH ×2 (09:24→09:25)
[2017-09-16] MEDS: TAMSULOSIN 0.4 MG CAP.ER.24H PO SCH (09:25)
[2017-09-16] MEDS: metFORMIN 500 MG TAB PO SCH (09:25)
[2017-09-16] MEDS: SODIUM CHLORIDE 0.9% 1,000 ML IV SCH (09:25)
[2017-09-16] MEDS: LINAGLIPTIN 5 MG TABLET PO SCH (09:25)
--- NOTE | 2017-09-16 10:32 | P.DS ---
Providers Date of admission: 09/13/17 11:17 Expected date of discharge: 09/16/17 Attending physician: Jasmin Natarajan Consults: 09/14/17 11:14 Consult Physician Routine Consulting Provider: Juan C Anderson Consult Reason/Comments: pneumonia Do you want consulting provider notified?: Yes Primary care physician: Jasmin Natarajan Hospital Course: This is an 87-year-old male patient of Dr. Natarajan and Dr. Turcios with a previous medical history significant for diabetes mellitus type 2, hyperkalemia, moderate COPD, lung cancer status post partial lobectomy, GERD, MRSA right lower lobe pneumonia with right pleural effusion in 2017, TIAs with left-sided location and no residual deficits. Patient gives history of sudden onset last evening or shortness of breath with cough and sputum production. He denies having any fever or chills. He denies any sick contacts. He last saw Dr. Natarajan one month ago for regular appointment. He has been using a nebulizer one time a day at home. Patient was brought into [facility] emergency center for evaluation. Chest x-ray shows a right lower lobe pneumonia is recurrent. Consider aspiration. White count was elevated, troponin negative. ProBNP 499. Patient was started on azithromycin, ceftriaxone, Zosyn and admitted to the [facility] floor with consult to Dr. Anderson. Patient is currently on Levaquin and Zosyn for possible aspiration pneumonia. 09/14: Consult with Dr. Anderson has been added. Repeat chest x-ray shows right lower lobe pneumonia. He has pulse ox seen 94-95% on 2 L nasal cannula. Otherwise vital signs have been stable and patient is been afebrile for the past 24 hours. Patient is currently on Levaquin and Zosyn. Lung sounds are improving. Patient denies any abdominal pain, nausea or vomiting. 09/15: Patient states that he is feeling a little bit better. His breathing is improving slowly. He feels he is almost ready to go home but would like to stay until tomorrow. Patient did have hypoglycemia this morning with blood sugar of 55. Hemoglobin A1c is 7.3. 09/16: Patient states his breathing is improving. He does have a little bit of cough with sputum production but not very much. He denies any blood in his sputum. He has had a bowel movement which was normal. He denies any diarrhea. He denies any chest pain. Patient also denies any choking episodes. Patient will be discharged home today in stable condition. Discharge diagnoses: 1. Acute hypoxic respiratory failure secondary to right sided pneumonia, possible aspiration pneumonia and possible COPD exacerbation with sepsis on presentation. 2. Diabetes mellitus type 2 with hemoglobin A1c of 7.3, uncontrolled with hypoglycemia. 4. History of lung cancer status post partial resection. 5. GERD 6. Hyperlipidemia. 7. Diaphragmatic hernia. 8. Enlarged prostate. Discharge plan: Return home Impression and plan of care have been directed as dictated by the signing physician. Renita Barger nurse practitioner acting as scribe for signing physician. Patient Condition at Discharge: Good Plan - Discharge Summary Discharge Rx Participant: Yes New Discharge Prescriptions: New Levofloxacin [Levaquin] 750 mg PO Q48H #5 tab Continue Omeprazole [PriLOSEC] 20 mg PO BID Mirtazapine [Remeron] 7.5 mg PO HS metFORMIN HCL 1,000 mg PO BID Saxagliptin HCl [Onglyza] 5 mg PO DAILY glipiZIDE [Glucotrol] 2.5 mg PO AC-TID Budesonide [Pulmicort] 0.5 mg INHALATION RT-BID Atorvastatin [Lipitor] 20 mg PO HS Ipratropium Nebulized [Atrovent Nebulized] 0.5 mg INHALATION RT-TID Tamsulosin [Flomax] 0.4 mg PO DAILY Gabapentin [Neurontin] 100 mg PO BID Discharge Medication List Omeprazole [PriLOSEC] 20 mg PO BID 11/21/13 [History] Mirtazapine [Remeron] 7.5 mg PO HS 06/23/16 [History] Saxagliptin HCl [Onglyza] 5 mg PO DAILY 06/23/16 [History] metFORMIN HCL 1,000 mg PO BID 06/23/16 [History] Budesonide [Pulmicort] 0.5 mg INHALATION RT-BID 10/25/16 [History] glipiZIDE [Glucotrol] 2.5 mg PO AC-TID 10/25/16 [History] Atorvastatin [Lipitor] 20 mg PO HS 09/13/17 [History] Gabapentin [Neurontin] 100 mg PO BID 09/13/17 [History] Ipratropium Nebulized [Atrovent Nebulized] 0.5 mg INHALATION RT-TID 09/13/17 [ History] Tamsulosin [Flomax] 0.4 mg PO DAILY 09/13/17 [History] Levofloxacin [Levaquin] 750 mg PO Q48H #5 tab 09/16/17 [Rx] Follow up Appointment(s)/Referral(s): Jasmin Natarajan MD [Primary Care Provider] - 1 Week Discharge Disposition: HOME SELF-CARE
--- NOTE | 2017-09-16 14:10 | P.PN ---
Subjective Progress Note Date: 09/16/17 Principal diagnosis: Acute hypoxic respiratory failure secondary to right lower lobe pneumonia, likely aspiration related. Mr. Ruelas is a 87-year-old white male patient of Dr. Natarajan, presented to the emergency department on 09/13/2017 at around 10:00 in the morning, with complaints of increasing dyspnea, fever, chills, yellow phlegm production. Patient denies sick contacts, denies any history of recent hospitalization or travel. Past medical history non-small cell lung cancer in with history of left lower lobectomy in 2009, prior episodes of pneumonia due to MRSA, type 2 diabetes mellitus, hyperlipidemia, iron deficiency anemia, TIA, mild chronic obstructive pulmonary disease, GERD, osteoarthritis, and hiatal hernia. Patient is a former smoker, carries a [id number] smoking history. Patient follows with Dr. Turcios in the pulmonary office, although has not been seen there for for over a year. He is not on oxygen at his baseline, his last PFT showed an FEV1 of 1.9 L or 76% of predicted, consistent with stage II COPD. He is on nebulized bronchodilators at home, DuoNeb and Pulmicort. Chest x-ray was completed and showed right lower lobe airspace disease. EKG showed sinus tach with a rate of 104 BPM. Initial labs showed a CBC of 11.8, hemoglobin of 13.4, sodium of 137, potassium is 5.2, BUN of 24, creatinine 0.94, magnesium of 1.3, normal LFTs, troponin negative 1, proBNP is within normal limits at 499. Patient did have grade fevers on presentation, with a temp of 100.8F. He was hypoxemic on presentation as well, with a pulse ox of 87% on room air. And was placed on supplemental oxygen. He received a dose of azithromycin and Rocephin , which was later switched to Levaquin and Zosyn. She was given a liter bolus in the emergency department, and his maintenance IV fluids are infusing at a rate of 100 ML per hour. Blood culture showed no growth at the 24-hour genesis, sputum culture was sent today. We're asked to see the patient in consultation for lower lobe pneumonia,community acquired versus aspiration. The patient is seen again today 09/15/2017 in follow-up on the regular medical floor. He is awake and alert in no acute distress. He is resting quite comfortably in bed. He states he is breathing better today as compared to yesterday. He denies any worsening shortness of breath, cough or congestion. No chills or night sweats. He is currently afebrile. Maintaining O2 saturations in the 90s on room air. Hemodynamically stable. Sputum cultures positive for melina only thus far. Blood cultures negative. He is currently on Zosyn, Levaquin, bronchodilators. Reevaluated today on 09/16/2017, doing well, asymptomatic, maintaining adequate saturations on room air, no cough no wheezing no shortness of breath. Patient has been treated with Zosyn and Levaquin, and is also on bronchodilators for underlying COPD. Patient is going to be discharged home today, and he is much improved compared to his admission status. Objective - Vital Signs Vital signs: Vital Signs Temp 97.1 F L 09/16/17 06:15 Pulse 84 09/16/17 09:05 Resp 18 09/16/17 06:15 BP 173/72 09/16/17 06:15 Pulse Ox 95 09/16/17 08:52 Intake & Output 09/15/17 09/16/17 09/16/17 18:59 06:59 18:59 Weight 73.2 kg Other: Voiding Method Toilet Toilet # Voids 3 1 # Bowel Movements 1 - Exam Exam - Constitutional General appearance: Physical exam revealed an 87-year-old white male in no form of distress.- EENT Eyes: EOMI Ears: bilateral: normal - Neck Neck: no lymphadenopathy, normal ROM Carotids: bilateral: upstroke normal Thyroid: bilateral: normal size - Respiratory Respiratory: Clear bilaterally, no crackles or rhonchi or wheezes. No chest wall tenderness. - Cardiovascular Rhythm: regular Heart sounds: normal: S1, S2 Abnormal Heart Sounds: systolic murmur ankle Peripheral Edema: absent: None foot Peripheral Edema: absent: None - Gastrointestinal General gastrointestinal: no organomegaly, soft, no tenderness - Integumentary Integumentary: normal turgor - Neurologic Neurologic: CNII-XII intact - Musculoskeletal Musculoskeletal: strength equal bilaterally - Psychiatric Psychiatric: A&O x's 3, appropriate affect, intact judgment & insight - Labs CBC & Chem 7: 09/14/17 07:57 07/20/18 07:57 Labs: Abnormal Lab Results - Last 24 Hours (Table) 09/15/17 09/15/17 09/16/17 Range/Units 17:03 21:00 02:03 POC Glucose (mg/dL) 139 H 136 H 105 H (75-99) mg/dL 09/16/17 Range/Units 06:57 POC Glucose (mg/dL) 102 H (75-99) mg/dL Microbiology - Last 24 Hours (Table) 09/13/17 10:16 Blood Culture - Preliminary Blood No Growth after 72 hours 09/13/17 16:15 Gram Stain - Preliminary Sputum Sputum Culture - Preliminary Melina albicans Aspergillus species Assessment and Plan Assessment: #1. Acute hypoxemic respiratory failure secondary to right lower lobe pneumonia , most likely aspiration related, based on history of a large hiatal hernia #2. Fever, chills, and production, shortness of breath, related to the above #3. COPD, GOLD stage II, FEV1 of 1.92 L or 76% of predicted as last documented in June 2016 #4. History of non-small cell lung cancer, that is post left lower lobectomy 2009, without recurrence #5. Type 2 diabetes mellitus #6. Iron deficiency anemia #7. Previous episodes of pneumonia due to methicillin-resistant Staphylococcus aureus, 2017 #8. GERD/reflux #9. Hiatal hernia #10. Remote history of nicotine dependence, patient carries 36 pack-year smoking history Plan: Agree with discharge planning today, follow up on outpatient basis, agree with antibiotics, and bronchodilators. Patient is to keep appointment with Dr. Turcios as scheduled Time with Patient: Less than 30
== END 2017-09-16 11:34 | disposition home health service (06) | DRG 871 ==
LOC: EC 09:49 → 4MS4W 11:17
PROVIDERS: ADMIT Internal Medicine; ATTEND Internal Medicine
DX: A41.9 Sepsis, unspecified organism (principal); J69.0 Pneumonitis due to inhalation of food and vomit; J96.01 Acute respiratory failure with hypoxia; J44.1 Chronic obstructive pulmonary disease with (acute) exacerbation; D50.9 Iron deficiency anemia, unspecified; E78.5 Hyperlipidemia, unspecified; E11.65 Type 2 diabetes mellitus with hyperglycemia; Z79.84 Long term (current) use of oral hypoglycemic drugs; H91.90 Unspecified hearing loss, unspecified ear; K21.9 Gastro-esophageal reflux disease without esophagitis; K44.9 Diaphragmatic hernia without obstruction or gangrene; N40.0 Benign prostatic hyperplasia without lower urinary tract symptoms; Z79.899 Other long term (current) drug therapy; Z80.42 Family history of malignant neoplasm of prostate; Z82.49 Family history of ischemic heart disease and other diseases of the circulatory system; Z85.118 Personal history of other malignant neoplasm of bronchus and lung; Z86.73 Personal history of transient ischemic attack (TIA), and cerebral infarction without residual deficits; Z87.891 Personal history of nicotine dependence; Z90.2 Acquired absence of lung [part of]; Z86.010 Personal history of colon polyps; Z81.1 Family history of alcohol abuse and dependence; Z87.01 Personal history of pneumonia (recurrent); Z86.14 Personal history of Methicillin resistant Staphylococcus aureus infection; Z82.3 Family history of stroke
CPT/HCPCS: 36415; 71046; 80048; 80053; 82550; 82553; 83036; 83735; 83880; 84484; 85025; 85027; 85610; 85730; 87040; 87070; 87205; 93005; 94640; 94760; 96361; 96365; 96366; 96375; 99285

== ENCOUNTER 2017-10-16 10:31 | Inpatient (IN) | payer MEDICARE, OTHER ==
[2017-10-16] MEDS ORDERED: SODIUM CHLORIDE 0.9% 500 ML IV ONE (11:36)
--- NOTE | 2017-10-16 11:40 | ED ---
General Adult HPI - General Chief complaint: Nausea/Vomiting/Diarrhea Stated complaint: confusion Time Seen by Provider: 10/16/17 10:42 Source: patient, family Mode of arrival: wheelchair - History of Present Illness Initial comments: This is a 87-year-old male with past medical history of previous CVA, hiatal hernia, "heart murmur" and lung cancer who presents today for chief complaint of vomiting. Patient states that he woke up in the middle of night choking on vomit, he stated he was not of open up and initially began vomiting. He then cleaned himself up and was up throughout the night due to coughing. Patient denies any abdominal pain, nausea, diarrhea, fever, chills, hematemesis. He is able to sleep and he woke at 7:15 his said anything like he was himself, however she went to her doctor's prevent the morning. When she returned at 9: 45 am she stated the patient seemed disoriented. So she decided to bring him to emergency department this morning. Patient denies any additional episodes of vomiting, abdominal pain, constipation, diarrhea. Patient states last bowel movement was yesterday he stated this was normal. Patient denies, however his stated that upon presentation to the emergency department he began acting himself. Patient denies any recent fever, chills, shortness of breath, chest pain, back pain, abdominal pain, nausea, numbness or tingling, dysuria or hematuria, headaches or visual changes, diplopia, speech or memory changes, muscle weakness, loss sensation, dizziness. Upon arrival VS stable however O2 91% on RA. Repeat 94%. - Related Data Home Medications Medication Instructions Recorded Confirmed Omeprazole [PriLOSEC] 20 mg PO BID 11/21/13 10/16/17 Mirtazapine [Remeron] 7.5 mg PO HS 06/23/16 10/16/17 Saxagliptin HCl [Onglyza] 5 mg PO DAILY 06/23/16 10/16/17 metFORMIN HCL 1,000 mg PO BID 06/23/16 10/16/17 Budesonide [Pulmicort] 0.5 mg INHALATION RT-BID 10/25/16 10/16/17 glipiZIDE [Glucotrol] 2.5 mg PO DAILY 10/25/16 10/16/17 Atorvastatin [Lipitor] 20 mg PO HS 09/13/17 10/16/17 Gabapentin [Neurontin] 100 mg PO BID 09/13/17 10/16/17 Ipratropium Nebulized [Atrovent 0.5 mg INHALATION RT-TID 09/13/17 10/16/17 Nebulized] Tamsulosin [Flomax] 0.4 mg PO DAILY 09/13/17 10/16/17 Aspirin [Adult Low Dose Aspirin EC] 81 mg PO DAILY 10/16/17 10/16/17 Ferrous Sulfate [Iron] 325 mg PO DAILY 10/16/17 10/16/17 Insulin Degludec [Tresiba 15 unit SQ DAILY 10/16/17 10/16/17 Flextouch U-100] Multivitamins, Thera [Multivitamin 1 tab PO DAILY 10/16/17 10/16/17 (formulary)] Allergies Allergy/AdvReac Type Severity Reaction Status Date / Time No Known Allergies Allergy Verified 10/16/17 11:00 Review of Systems ROS Statement: Those systems with pertinent positive or pertinent negative responses have been documented in the HPI. ROS Other: All systems not noted in ROS Statement are negative. Constitutional: Denies: fever, chills, weakness, weight change Eyes: Denies: vision change ENT: Denies: hearing loss Respiratory: Reports: cough (throughout night after aspirating vomit). Denies: dyspnea, wheezes, hemoptysis, stridor Cardiovascular: Denies: chest pain, palpitations, dyspnea on exertion, edema, syncope Endocrine: Denies: fatigue Gastrointestinal: Reports: vomiting (1 episode). Denies: abdominal pain, nausea , diarrhea, constipation, hematemesis, melena, hematochezia Genitourinary: Denies: urgency, dysuria, frequency, hematuria Musculoskeletal: Denies: back pain Skin: Denies: rash, lesions Neurological: Denies: headache, weakness, numbness, paresthesias, confusion, abnormal gait, vertigo Past Medical History Past Medical History: Asthma, Cancer, COPD, CVA/TIA, Diabetes Mellitus, Hearing Disorder / Deafness, Hyperlipidemia, Osteoarthritis (OA), Pneumonia, Prostate Disorder Additional Past Medical History / Comment(s): L lung cancer with surgery in 2009 , R pleural effusion (MRSA), SOB with exertion, 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 Past Anesthesia/Blood Transfusion Reactions: No Reported Reaction Past Psychological History: Depression Smoking Status: Former smoker Past Alcohol Use History: None Reported Past Drug Use History: None Reported - Past Family History Father Family Medical History: No Reported History Additional Family Medical History / Comment(s): Father at the age of 74yrs. He was an alcoholic. Mother Family Medical History: CVA/TIA Additional Family Medical History / Comment(s): Mother at the age of 80yrs. Sister(s) Family Medical History: Coronary Artery Disease (CAD), Myocardial Infarction (VT ) Brother(s) Family Medical History: Neurologic Disorder Daughter(s) Family Medical History: No Reported History Son(s) Family Medical History: Cancer Additional Family Medical History / Comment(s): PROSTATE CANCER General Exam - General Exam Comments Initial Comments: General: The patient is awake and alert, in no distress, and does not appear acutely ill. Non-toxic. Eye: Pupils are equal, round and reactive to light, extra-ocular movements are intact. No nystagmus. There is normal conjunctiva bilaterally. No signs of icterus. Ears, nose, mouth and throat: There are moist mucous membranes and no oral lesions. Neck: The neck is supple, there is no tenderness or JVD. Cardiovascular: There is a regular rate and rhythm. No rub or gallop is appreciated. Respiratory: Lungs are clear to auscultation, respirations are non-labored, breath sounds are equal. No wheezes, stridor, rales, or rhonchi.Fine crackes audible at the middle right lobe. (+) egophany over right middle/lower lung john. Gastrointestinal: Soft, non-distended, non-tender abdomen without masses or organomegaly noted. There is no rebound or guarding present. No CVA tenderness. Bowel sounds are unremarkable. Musculoskeletal: Normal ROM grossly. DP and radial pulses equal bilaterally 2+ . Skin: Skin is warm and dry and no rashes or lesions are noted. No LE edema. Psychiatric: Cooperative, appropriate mood & affect, normal judgment. Neurological : Pt AAOx3. memory intact to immediately, intermediate and jail recall. Able to follow simple verbal. High quality, labial (pa) and lingual (la) speech. Low quality posterior pharynx/larynx (ga) voice sounds. Able to express general knowledge (days in a week). No hemineglect or inattention noted. Finger agnosia (-) and spatially oriented (identified L index finger touched R shoulder with L index finger). Light touch and temperature sensation present over the face, chest, abdomen, back, UE bilaterally, and LE bilaterally. Able to localize point during point localization b/l and extinction. No visible bulk atrophy, hypertrophy, fasciculations, or myoclonus of the UE or LE b/l. Full PROM in UE and LE b/l. Bilateral muscle strength 5/5 for the following muscles: deltoid, biceps, triceps, brachioradialis, wrist extensors/flexor, hip flexor, hip abductors/ adductors, hamstrings, quadriceps, feet dorsiflexors/plantar flexors. Finger to nose, finger to the examiners finger, and heel to colón coordinated and accurate b/l. Coordinated and even demonstration of hand flip, finger to thumb, and toe tap b/l. +2 triceps, patellar, and Achilles DTR b/l. Gait is coordinated and even in stride with tandem, toe and heel walk. (-) Romberg. (- ) pronator drift. No nuchal rigidity. (-) Brudzinskis and Kernig signs.. Course Vital Signs 10/16/17 10/16/17 10/16/17 10:36 13:40 17:59 Temperature 98.9 F 98.2 F 97.0 F L Pulse Rate 97 87 60 Respiratory 18 18 18 Rate Blood Pressure 119/65 134/68 138/63 O2 Sat by Pulse 91 L 92 L 93 L Oximetry 10/16/17 19:44 Temperature 99.5 F Pulse Rate 84 Respiratory 18 Rate Blood Pressure 135/64 O2 Sat by Pulse 94 L Oximetry Medical Decision Making - Medical Decision Making No focal or neurological deficits on examination. There were audible fine crackles heard at the right medial lobe upon lung examination. Pt presented with 91% O2, repeat by myself 94%. Pt did not appear in acute distress. Due to complaints of confusion by CT without contrast obtained, returned within normal. CBC, CMP, troponin, lipase, EKG obtained. CBC revealed elevated at 12.5, HgB 12.1, Plt 111. Glucose elevated at 330, pt new to insulin use began 2 days ago, no dosage today. Troponins and lipase negative, EKG within normal limits reviewed by myself and Dr. Mcmahon. on CXR there was prominent right medial basilar opacity concerning for an aspiration pneumonia. Case discussed in detail with Dr. Mcmahon at this time we feel pt would benefit for admission based on O2 saturation, hx and CXR findings. Dr. Natarajan was paged at 1344, he spoke with Dr Mcmahon and was admitted. Pt was started on zosyn, and levoquin. Pt denied symptoms upon reevaluation. Nurse admitted to hearing pt cough during her examinations. Pt discharged in stable condition, appearing well and nontoxic at 20:00. - Lab Data Result diagrams: 10/16/17 11:09 10/16/17 11:09 Lab Results 10/16/17 10/16/17 10/16/17 Range/Units 11:09 11:09 11:09 WBC 12.5 H (3.8-10.6) k/uL RBC 4.24 L (4.30-5.90) m/uL Hgb 12.1 L (13.0-17.5) gm/dL Hct 39.0 (39.0-53.0) % MCV 92.0 (80.0-100.0) fL MCH 28.5 (25.0-35.0) pg MCHC 31.0 (31.0-37.0) g/dL RDW 14.7 (11.5-15.5) % Plt Count 111 L (150-450) k/uL Neutrophils % 94 % Lymphocytes % 2 % Monocytes % 3 % Eosinophils % 0 % Basophils % 0 % Neutrophils # 11.7 H (1.3-7.7) k/uL Lymphocytes # 0.3 L (1.0-4.8) k/uL Monocytes # 0.4 (0-1.0) k/uL Eosinophils # 0.1 (0-0.7) k/uL Basophils # 0.0 (0-0.2) k/uL PT 10.5 (9.0-12.0) sec INR 1.1 (<1.2) APTT 24.0 (22.0-30.0) sec Sodium 137 (137-145) mmol/L Potassium 5.1 (3.5-5.1) mmol/L Chloride 105 (98-107) mmol/L Carbon Dioxide 22 (22-30) mmol/L Anion Gap 10 mmol/L BUN 24 H (9-20) mg/dL Creatinine 0.88 (0.66-1.25) mg/dL Est GFR (CKD-EPI)AfAm >90 (>60 ml/min/1.73 sqM) Est GFR (CKD-EPI)NonAf 78 (>60 ml/min/1.73 sqM) Glucose 330 H (74-99) mg/dL Calcium 9.0 (8.4-10.2) mg/dL Total Bilirubin 0.5 (0.2-1.3) mg/dL AST 19 (17-59) U/L ALT 29 (21-72) U/L Alkaline Phosphatase 55 (38-126) U/L Troponin I (0.000-0.034) ng/mL Total Protein 6.2 L (6.3-8.2) g/dL Albumin 3.5 (3.5-5.0) g/dL Lipase 52 (23-300) U/L Urine Color Urine Appearance (Clear) Urine pH (5.0-8.0) Ur Specific [place] (1.001-1.035) Urine Protein (Negative) Urine Glucose (UA) (Negative) Urine Ketones (Negative) Urine Blood (Negative) Urine Nitrite (Negative) Urine Bilirubin (Negative) Urine Urobilinogen (<2.0) mg/dL Ur Leukocyte Esterase (Negative) 10/16/17 10/16/17 Range/Units 11:09 13:10 WBC (3.8-10.6) k/uL RBC (4.30-5.90) m/uL Hgb (13.0-17.5) gm/dL Hct (39.0-53.0) % MCV (80.0-100.0) fL MCH (25.0-35.0) pg MCHC (31.0-37.0) g/dL RDW (11.5-15.5) % Plt Count (150-450) k/uL Neutrophils % % Lymphocytes % % Monocytes % % Eosinophils % % Basophils % % Neutrophils # (1.3-7.7) k/uL Lymphocytes # (1.0-4.8) k/uL Monocytes # (0-1.0) k/uL Eosinophils # (0-0.7) k/uL Basophils # (0-0.2) k/uL PT (9.0-12.0) sec INR (<1.2) APTT (22.0-30.0) sec Sodium (137-145) mmol/L Potassium (3.5-5.1) mmol/L Chloride (98-107) mmol/L Carbon Dioxide (22-30) mmol/L Anion Gap mmol/L BUN (9-20) mg/dL Creatinine (0.66-1.25) mg/dL Est GFR (CKD-EPI)AfAm (>60 ml/min/1.73 sqM) Est GFR (CKD-EPI)NonAf (>60 ml/min/1.73 sqM) Glucose (74-99) mg/dL Calcium (8.4-10.2) mg/dL Total Bilirubin (0.2-1.3) mg/dL AST (17-59) U/L ALT (21-72) U/L Alkaline Phosphatase (38-126) U/L Troponin I <0.012 (0.000-0.034) ng/mL Total Protein (6.3-8.2) g/dL Albumin (3.5-5.0) g/dL Lipase (23-300) U/L Urine Color Yellow Urine Appearance Clear (Clear) Urine pH 5.0 (5.0-8.0) Ur Specific [place] 1.019 (1.001-1.035) Urine Protein Trace H (Negative) Urine Glucose (UA) 4+ H (Negative) Urine Ketones Negative (Negative) Urine Blood Negative (Negative) Urine Nitrite Negative (Negative) Urine Bilirubin Negative (Negative) Urine Urobilinogen <2.0 (<2.0) mg/dL Ur Leukocyte Esterase Negative (Negative) Disposition Clinical Impression: Aspiration pneumonia Disposition: ADMITTED IP TO THIS HOSP Condition: Stable Is patient prescribed a controlled substance at d/c from ED?: No Time of Disposition: 17:10
[2017-10-16 11:49] LABS: Basophils % (A) 0 %; Eosinophils # (A) 0.1 k/uL (0-0.7); Eosinophils % (A) 0 %; HGB 12.1 gm/dL (13.0-17.5); Lymphocytes # (A) 0.3 k/uL (1.0-4.8); Lymphocytes % (A) 2 %; MCH 28.5 pg (25.0-35.0); Mean Platelet Volume 9.7; Monocytes # (A) 0.4 k/uL (0-1.0); Monocytes % (A) 3 %; Neutrophils # (A) 11.7 k/uL (1.3-7.7); Neutrophils % (A) 94 %; Platelet Count 111 k/uL (150-450); RBC 4.24 m/uL (4.30-5.90); RDW 14.7 % (11.5-15.5); WBC 12.5 k/uL (3.8-10.6)
[2017-10-16 11:59] LABS: ALT 29 U/L (21-72); AST 19 U/L (17-59); Albumin 3.5 g/dL (3.5-5.0); Alkaline Phosphatase 55 U/L (38-126); Anion Gap 10 mmol/L; Blood Urea Nitrogen 24 mg/dL (9-20); Carbon Dioxide 22 mmol/L (22-30); Chloride 105 mmol/L (98-107); Glucose 330 mg/dL (74-99); Lipase 52 U/L (23-300); Potassium 5.1 mmol/L (3.5-5.1); Sodium 137 mmol/L (137-145); Total Bilirubin 0.5 mg/dL (0.2-1.3); Total Protein 6.2 g/dL (6.3-8.2)
[2017-10-16 12:09] LABS: INR 1.1 (<1.2); Prothrombin Time 10.5 sec (9.0-12.0)
--- NOTE | 2017-10-16 12:14 | CT ---
EXAMINATION TYPE: CT brain wo con DATE OF EXAM: 10/16/2017 HISTORY: Confusion CT DLP: 1216 mGycm. Automated Exposure Control for Dose Reduction was Utilized. TECHNIQUE: CT scan of the head is performed without contrast. COMPARISON: CT brain September 18, 2016. FINDINGS: There is no acute intracranial hemorrhage or midline shift identified. There is diffuse v entricular and sulcal prominence consistent with diffuse age-related cerebral atrophy. There is low- attenuation in the periventricular white matter consistent with chronic small vessel ischemic change. The globes are intact and the visualized sinuses are clear. Prominent arachnoid granulations post eriorly are redemonstrated. Vascular calcification of distal internal carotid arteries bilaterally is again seen. IMPRESSION: No acute intracranial hemorrhage or midline shift. There is mild to moderate diffuse ag e-related cerebral atrophy and chronic small vessel ischemic change redemonstrated without significan t change from prior.
--- NOTE | 2017-10-16 12:29 | XR ---
EXAMINATION TYPE: XR abdomen acute w cxr DATE OF EXAM: 10/16/2017 CLINICAL HISTORY: Pain with nausea TECHNIQUE: Single frontal view of chest is obtained. Supine and upright views of the abdomen are acq uired. COMPARISON: Chest x-ray September 14, 2017. CT chest June 26, 2016 FINDINGS: Background chronic emphysematous changes redemonstrated. There is redemonstration of right sided hiatal hernia. There is more prominent right medial basilar opacity could reflect acute infiltr ate on background of chronic scarring and/or atelectasis. Left lung is clear. No pneumothorax is seen bilaterally. Cardiac silhouette size appears within normal limits. Surgical clips left hilar region are redemonstrated. Osseous structures are intact. Gas is noted in nondistended small bowel loops. Gas and fecal material is seen in nondistended colon . Scattered pelvic phleboliths are seen. Vascular calcification right groin region is noted. No pneum operitoneum is evident. IMPRESSION: 1. Chronic emphysematous change with large central right-sided hiatal hernia redemonstrated. Possible acute infiltrate on background of chronic fibrosis adjacent to hernia. 2. Overall nonspecific but likely nonobstructive bowel gas pattern.
[2017-10-16 13:40] LABS: Appearance,Urine Clear (Clear); Bilirubin,Urine Negative (Negative); Blood,Urine Negative (Negative); Color,Urine Yellow; Glucose,Urine (UA) 4+ (Negative); Ketones,Urine Negative (Negative); Leukocyte Esterase,Urine Negative (Negative); Nitrite,Urine Negative (Negative); Protein,Urine Trace (Negative); Specific Gravity,Urine 1.019 (1.001-1.035); Urobilinogen,Urine <2.0 mg/dL (<2.0)
[2017-10-16] MEDS ORDERED: PNEUMONIA PROTOCOL UTILIZED 1 EACH MISC PO PRN (14:11)
[2017-10-16] MEDS ORDERED: LEVOFLOXACIN 750MG-D5W PMX 750 MG in DEXTROSE/WATER 1 150ML.BAG IVPB STA (14:11)
--- NOTE | 2017-10-16 14:46 | P.HPIM ---
History of Present Illness H&P Date: 10/16/17 Chief Complaint: aspiration pneumonia This is an 87-year-old male one of my patient with a previous medical history significant for diabetes mellitus type 2, hyperkalemia, moderate COPD, lung cancer status post partial lobectomy, GERD, MRSA right lower lobe pneumonia with right pleural effusion in 2017, TIAs with left-sided location and no residual deficits, patient was recently hospitalized at [facility] last month for similar episode where he was diagnosed with right lower lobe pneumonia possibly aspiration and the patient came to my office in follow- up with me as an outpatient he was sent for a barium swallow that did not show any evidence of aspiration however it did show that the patient is putting his food and liquid in the back of his throat with increased risk of aspiration him a patient stated that he had the sloppy Nahun's yesterday he did not eat much and he went to bed and he woke up at around 12 midnight with vomiting and aspirating the vomitus and he sat up most of the night and he came into the ER in the morning at [facility] had a chest x-ray that showed worsening right lower lobe infiltrate and the patient was admitted to the hospital for evaluation and possible aspiration pneumonia. Review of Systems Constitutional: Reports weakness, Reports weight loss, Denies anorexia, Denies chronic headaches, Denies lethargy, Denies malaise, Denies weight gain Eyes: denies blurred vision, denies bulging eye, denies decreased vision Ears: bilateral: decreased hearing Ears, nose, mouth and throat: Denies dysphagia, Denies neck lump Cardiovascular: Reports dyspnea on exertion, Reports high blood pressure, Reports shortness of breath, Denies chest pain, Denies claudication, Denies decreased exercise tolerance, Denies phlebitis, Denies rapid heart beat, Denies syncope Respiratory: Reports cough, Reports cough with sputum, Denies congestion, Denies home oxygen, Denies pain, Denies sleep apnea, Denies snoring, Denies wheezing Gastrointestinal: Reports nausea, Reports vomiting, Denies abdominal pain, Denies bloating, Denies BRBPR, Denies heartburn, Denies hematemesis, Denies melena Genitourinary: Reports nocturia, Denies dysuria Musculoskeletal: Denies myalgias Musculoskeletal: absent: ankle pain, ankle stiffness, ankle swelling, elbow pain , elbow stiffness, elbow swelling, foot pain, foot stiffness, foot swelling, hand pain, hand stiffness, hand swelling, hip pain, hip stiffness, hip swelling , knee pain, knee stiffness, knee swelling, shoulder pain, shoulder stiffness, shoulder swelling, wrist pain, wrist stiffness, wrist swelling Integumentary: Denies pruritus, Denies rash Neurological: Reports memory loss, Denies numbness, Denies weakness Psychiatric: Denies anxiety, Denies depression Endocrine: Denies fatigue, Denies weight change Past Medical History Past Medical History: Asthma, Cancer, COPD, CVA/TIA, Diabetes Mellitus, Hearing Disorder / Deafness, Hyperlipidemia, Osteoarthritis (OA), Pneumonia, Prostate Disorder Additional Past Medical History / Comment(s): L lung cancer with surgery in 2009 , R pleural effusion (MRSA), SOB with exertion, 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 Past Anesthesia/Blood Transfusion Reactions: No Reported Reaction Past Psychological History: Depression Smoking Status: Former smoker Past Alcohol Use History: None Reported Past Drug Use History: None Reported - Past Family History Father Family Medical History: No Reported History Additional Family Medical History / Comment(s): Father at the age of 74yrs. He was an alcoholic. Mother Family Medical History: CVA/TIA Additional Family Medical History / Comment(s): Mother at the age of 80yrs. Sister(s) Family Medical History: Coronary Artery Disease (CAD), Myocardial Infarction (SD ) Brother(s) Family Medical History: Neurologic Disorder Daughter(s) Family Medical History: No Reported History Son(s) Family Medical History: Cancer Additional Family Medical History / Comment(s): PROSTATE CANCER Medications and Allergies Home Medications Medication Instructions Recorded Confirmed Type Omeprazole [PriLOSEC] 20 mg PO BID 11/21/13 10/16/17 History Mirtazapine [Remeron] 7.5 mg PO HS 06/23/16 10/16/17 History Saxagliptin HCl [Onglyza] 5 mg PO DAILY 06/23/16 10/16/17 History metFORMIN HCL 1,000 mg PO BID 06/23/16 10/16/17 History Budesonide [Pulmicort] 0.5 mg INHALATION RT-BID 10/25/16 10/16/17 History glipiZIDE [Glucotrol] 2.5 mg PO DAILY 10/25/16 10/16/17 History Atorvastatin [Lipitor] 20 mg PO HS 09/13/17 10/16/17 History Gabapentin [Neurontin] 100 mg PO BID 09/13/17 10/16/17 History Ipratropium Nebulized [Atrovent 0.5 mg INHALATION RT-TID 09/13/17 10/16/17 History Nebulized] Tamsulosin [Flomax] 0.4 mg PO DAILY 09/13/17 10/16/17 History Aspirin [Adult Low Dose Aspirin EC] 81 mg PO DAILY 10/16/17 10/16/17 History Ferrous Sulfate [Iron] 325 mg PO DAILY 10/16/17 10/16/17 History Insulin Degludec [Tresiba 15 unit SQ DAILY 10/16/17 10/16/17 History Flextouch U-100] Multivitamins, Thera [Multivitamin 1 tab PO DAILY 10/16/17 10/16/17 History (formulary)] Allergies Allergy/AdvReac Type Severity Reaction Status Date / Time No Known Allergies Allergy Verified 10/16/17 11:00 Physical Exam Vitals: Vital Signs Temp Pulse Resp BP Pulse Ox 10/16/17 13:40 98.2 F 87 18 134/68 92 L 10/16/17 10:36 98.9 F 97 18 119/65 91 L Intake and Output 10/15/17 10/16/17 10/16/17 22:59 06:59 14:59 Other: Weight 70.171 kg - Constitutional General appearance: mild distress, thin - EENT Eyes: anicteric sclerae, EOMI, PERRLA, no ptosis, no scleral icterus, normal appearance ENT: hard of hearing, NA/AT, no normal oropharynx, no thrush Ears: bilateral: normal - Neck Neck: no lymphadenopathy, normal ROM, no rigidity, no stridor, no thyromegaly Carotids: bilateral: upstroke normal Thyroid: bilateral: normal size - Respiratory Respiratory: right: rales, rhonchi, bilateral: diminished, negative: dullness, prolonged expiration, prolonged inspiration - Cardiovascular Rhythm: regular Heart sounds: normal: S1, S2 Abnormal Heart Sounds: systolic murmur, no rub, no S3 Gallop, no click - Gastrointestinal General gastrointestinal: normal bowel sounds, soft, no splenomegaly, no tenderness, no umbilical hernia, no ventral hernia - Integumentary Integumentary: normal, normal turgor - Neurologic Neurologic: CNII-XII intact - Musculoskeletal Musculoskeletal: generalized weakness, strength equal bilaterally - Psychiatric Psychiatric: A&O x's 3, appropriate affect, intact judgment & insight Results CBC & Chem 7: 10/16/17 11:09 10/16/17 11:09 Labs: Abnormal Lab Results - Last 24 Hours (Table) 10/16/17 10/16/17 10/16/17 Range/Units 11:09 11:09 13:10 WBC 12.5 H (3.8-10.6) k/uL RBC 4.24 L (4.30-5.90) m/uL Hgb 12.1 L (13.0-17.5) gm/dL Plt Count 111 L (150-450) k/uL Neutrophils # 11.7 H (1.3-7.7) k/uL Lymphocytes # 0.3 L (1.0-4.8) k/uL BUN 24 H (9-20) mg/dL Glucose 330 H (74-99) mg/dL Total Protein 6.2 L (6.3-8.2) g/dL Urine Protein Trace H (Negative) Urine Glucose (UA) 4+ H (Negative) Thrombosis Risk Factor Assmnt - DVT/VTE Prophylaxis DVT/VTE Prophylaxis: Pharmacologic Prophylaxis ordered, Mechanical Prophylaxis ordered Assessment and Plan Assessment: Assessment and plan: 1. Aspiration pneumonia with possible gram-negative pneumonia. We will start Levaquin 500 mg IV piggyback every 24 hours as well as Zosyn 3.375 g IV piggyback every 6 hours, sputum culture, DuoNeb 3ml nebulization 4 times every day, also Pulmicort 0.5 mg nebulization twice every day, oxygen support, pulmonary consultation, sputum culture, blood culture. Patient therapy evaluation. 2. Moderate size hiatal hernia. Patient was instructed about eating small frequent meals and the keep the head of the bed elevated this point in time as he is not a surgical candidate. 3. Diabetes mellitus type 2. Continue patient on Glucotrol 2.5 mg orally 3 times every day, metformin 1000 g orally twice every day, continue Tradjenta 5 mg orally once every day. Place the patient on the sliding scale insulin, BGM before each meal and at bedtime. We will continue Treseba 15 units subcu venously once every day. 4. History of lung cancer status post partial resection. He currently is not on any regimented program, not requiring any chemo, and does not follow or need any follow-up with oncology according to the , last chest CT 06/26/2016 . 5. GERD and GI prophylaxis. Continue Protonix 40 mg orally once every day. 6. Hyperlipidemia. Continue Lipitor 40 mg at bedtime. 7. Hard of hearing. Patient has hearing aids in place. 8. Enlarged prostate. Stable. We will continue Flomax 0.4 mg orally once every day. 9. DVT prophylaxis. Lovenox 40 mg subcutaneously every 24 hours. 10. Admit to inpatient. Estimate a length of stay 2 midnights. 11. Full code.
[2017-10-16 14:52] LABS: Glucose,Whole Blood 194 mg/dL (75-99)
[2017-10-16] MEDS ORDERED: PIPERACILLIN-TAZOBACTAM 3.375 GM in DEXTROSE/WATER 1 50ML.BAG IVPB STA (16:55)
[2017-10-16 20:20] LABS: Glucose,Whole Blood 138 mg/dL (75-99)
[2017-10-16] MEDS: SODIUM CHLORIDE 0.9% 1,000 ML IV SCH (21:44)
[2017-10-16] MEDS: MIRTAZAPINE 15 MG TAB PO SCH (23:21)
[2017-10-16] MEDS: ATORVASTATIN 20 MG TAB PO SCH (23:21)
[2017-10-16] MEDS: GABAPENTIN 100 MG CAP PO SCH (23:21)
[2017-10-16] MEDS: PIPERACILLIN-TAZOBACTAM 3.375 GM in DEXTROSE/WATER 1 50ML.BAG IVPB SCH (23:41)
[2017-10-17] MEDS: BUDESONIDE 0.5 MG/2 ML NEBU INHALATION SCH ×3 (01:38→20:07)
[2017-10-17] MEDS: IPRATROPIUM 0.5 MG/2.5 ML NEBU INHALATION SCH ×4 (01:38→20:08)
[2017-10-17 06:59] LABS: Glucose,Whole Blood 121 mg/dL (75-99)
[2017-10-17 07:08] LABS: Calcium 8.7 mg/dL (8.4-10.2); Potassium 4.1 mmol/L (3.5-5.1); Total Bilirubin 0.7 mg/dL (0.2-1.3); Total Protein 5.6 g/dL (6.3-8.2)
[2017-10-17 07:13] LABS: Basophils % (A) 0 %; Eosinophils # (A) 0.3 k/uL (0-0.7); Eosinophils % (A) 3 %; HCT 34.8 % (39.0-53.0); HGB 10.9 gm/dL (13.0-17.5); Lymphocytes # (A) 0.8 k/uL (1.0-4.8); Lymphocytes % (A) 10 %; MCH 28.1 pg (25.0-35.0); MCHC 31.3 g/dL (31.0-37.0); MCV 89.9 fL (80.0-100.0); Mean Platelet Volume 9.8; Monocytes # (A) 0.4 k/uL (0-1.0); Monocytes % (A) 4 %; Neutrophils # (A) 6.6 k/uL (1.3-7.7); Neutrophils % (A) 82 %; RBC 3.87 m/uL (4.30-5.90); RDW 14.5 % (11.5-15.5); WBC 8.1 k/uL (3.8-10.6)
--- NOTE | 2017-10-17 07:58 | XR ---
EXAMINATION TYPE: XR chest 2V DATE OF EXAM: 10/17/2017 COMPARISON: 10/16/2017 TECHNIQUE: PA and lateral views submitted. HISTORY: Pneumonia FINDINGS: There is bilateral consolidation greater on the right with bilateral small pleural effusion. Postsurg ical changes are noted. There is biapical pleural thickening. Atherosclerotic change aorta. Diffuse o steopenia and arthropathy shoulders. IMPRESSION: 1. Stable pleural-parenchymal changes
[2017-10-17] MEDS: metFORMIN 500 MG TAB PO SCH ×2 (08:31→16:19)
[2017-10-17] MEDS: ENOXAPARIN 40 MG/0.4 ML SYRINGE SQ SCH (08:31)
[2017-10-17] MEDS: INSULIN DETEMIR 100 UNIT/ML 10 ML VIAL SQ SCH (08:31)
[2017-10-17] MEDS: FERROUS SULFATE 325 MG TAB PO SCH (08:31)
[2017-10-17] MEDS: PANTOPRAZOLE 40 MG TABLET PO SCH (08:31)
[2017-10-17] MEDS: GABAPENTIN 100 MG CAP PO SCH ×2 (08:31→21:10)
[2017-10-17] MEDS: LINAGLIPTIN 5 MG TABLET PO SCH (08:31)
[2017-10-17] MEDS: ASPIRIN 81 MG PO SCH (08:31)
[2017-10-17 08:41] LABS: Platelet Count 91 k/uL (150-450); Poikilocytosis (M) Present
[2017-10-17] MEDS: PIPERACILLIN-TAZOBACTAM 3.375 GM in DEXTROSE/WATER 1 50ML.BAG IVPB SCH ×2 (10:35→17:41)
[2017-10-17] MEDS: TAMSULOSIN 0.4 MG CAP.ER.24H PO SCH (10:36)
[2017-10-17 11:18] VITALS: BMI 22.8
[2017-10-17] MEDS: MULTIVITAMINS, THERA 1 EACH TAB PO SCH (12:22)
--- NOTE | 2017-10-17 13:30 | P.PN ---
Subjective Progress Note Date: 10/17/17 This is an 87-year-old male one of my patient with a previous medical history significant for diabetes mellitus type 2, hyperkalemia, moderate COPD, lung cancer status post partial lobectomy, GERD, MRSA right lower lobe pneumonia with right pleural effusion in 2017, TIAs with left-sided location and no residual deficits, patient was recently hospitalized at [facility] last month for similar episode where he was diagnosed with right lower lobe pneumonia possibly aspiration and the patient came to my office in follow- up with me as an outpatient he was sent for a barium swallow that did not show any evidence of aspiration however it did show that the patient is putting his food and liquid in the back of his throat with increased risk of aspiration him a patient stated that he had the sloppy Nahun's yesterday he did not eat much and he went to bed and he woke up at around 12 midnight with vomiting and aspirating the vomitus and he sat up most of the night and he came into the ER in the morning at [facility] had a chest x-ray that showed worsening right lower lobe infiltrate and the patient was admitted to the hospital for evaluation and possible aspiration pneumonia. 10/17: Pulse ox is 94% on 2 L. Consult with speech therapy as he is followed as an outpatient. Repeat chest x-ray shows stable pleural intervention will changes. White count is normalized at 8.1. Hemoglobin is 10.9, BUN 19 and creatinine 0.94. He is continued on IV Levaquin and Zosyn. Sputum culture remains on collected. Objective - Vital Signs Vital signs: Vital Signs Temp 97.8 F 10/17/17 06:06 Pulse 72 10/17/17 07:23 Resp 16 10/17/17 06:06 BP 124/67 10/17/17 06:06 Pulse Ox 94 L 10/17/17 06:06 Intake & Output 10/16/17 10/17/17 10/17/17 18:59 06:59 18:59 Weight 70.171 kg Other: Voiding Method Toilet Urinal # Voids 3 - Exam General appearance: mild distress, thin - EENT Eyes: anicteric sclerae, EOMI, PERRLA, no ptosis, no scleral icterus, normal appearance ENT: hard of hearing, NA/AT, no normal oropharynx, no thrush Ears: bilateral: normal - Neck Neck: no lymphadenopathy, normal ROM, no rigidity, no stridor, no thyromegaly Carotids: bilateral: upstroke normal Thyroid: bilateral: normal size - Respiratory Respiratory: right: rales, rhonchi, bilateral: diminished, negative: dullness, prolonged expiration, prolonged inspiration - Cardiovascular Rhythm: regular Heart sounds: normal: S1, S2 Abnormal Heart Sounds: systolic murmur, no rub, no S3 Gallop, no click - Gastrointestinal General gastrointestinal: normal bowel sounds, soft, no splenomegaly, no tenderness, no umbilical hernia, no ventral hernia - Integumentary Integumentary: normal, normal turgor - Neurologic Neurologic: CNII-XII intact - Musculoskeletal Musculoskeletal: generalized weakness, strength equal bilaterally - Psychiatric Psychiatric: A&O x's 3, appropriate affect, intact judgment & insight - Labs CBC & Chem 7: 10/17/17 06:38 10/17/17 06:38 Labs: Abnormal Lab Results - Last 24 Hours (Table) 10/16/17 10/16/17 10/16/17 Range/Units 11:09 11:09 13:10 WBC 12.5 H (3.8-10.6) k/uL RBC 4.24 L (4.30-5.90) m/uL Hgb 12.1 L (13.0-17.5) gm/dL Hct (39.0-53.0) % Plt Count 111 L (150-450) k/uL Neutrophils # 11.7 H (1.3-7.7) k/uL Lymphocytes # 0.3 L (1.0-4.8) k/uL BUN 24 H (9-20) mg/dL Glucose 330 H (74-99) mg/dL POC Glucose (mg/dL) (75-99) mg/dL AST (17-59) U/L Total Protein 6.2 L (6.3-8.2) g/dL Albumin (3.5-5.0) g/dL Urine Protein Trace H (Negative) Urine Glucose (UA) 4+ H (Negative) 10/16/17 10/16/17 10/17/17 Range/Units 14:49 20:19 06:38 WBC (3.8-10.6) k/uL RBC 3.87 L (4.30-5.90) m/uL Hgb 10.9 L (13.0-17.5) gm/dL Hct 34.8 L (39.0-53.0) % Plt Count 91 L (150-450) k/uL Neutrophils # (1.3-7.7) k/uL Lymphocytes # 0.8 L (1.0-4.8) k/uL BUN (9-20) mg/dL Glucose (74-99) mg/dL POC Glucose (mg/dL) 194 H 138 H (75-99) mg/dL AST (17-59) U/L Total Protein (6.3-8.2) g/dL Albumin (3.5-5.0) g/dL Urine Protein (Negative) Urine Glucose (UA) (Negative) 10/17/17 10/17/17 Range/Units 06:38 06:58 WBC (3.8-10.6) k/uL RBC (4.30-5.90) m/uL Hgb (13.0-17.5) gm/dL Hct (39.0-53.0) % Plt Count (150-450) k/uL Neutrophils # (1.3-7.7) k/uL Lymphocytes # (1.0-4.8) k/uL BUN (9-20) mg/dL Glucose 118 H (74-99) mg/dL POC Glucose (mg/dL) 121 H (75-99) mg/dL AST 12 L (17-59) U/L Total Protein 5.6 L (6.3-8.2) g/dL Albumin 3.0 L (3.5-5.0) g/dL Urine Protein (Negative) Urine Glucose (UA) (Negative) Assessment and Plan Plan: 1. Aspiration pneumonia with possible gram-negative pneumonia. We will start Levaquin 500 mg IV piggyback every 24 hours as well as Zosyn 3.375 g IV piggyback every 6 hours, sputum culture, DuoNeb 3ml nebulization 4 times every day, also Pulmicort 0.5 mg nebulization twice every day, oxygen support, pulmonary consultation, sputum culture, blood culture. Speech therapy evaluation. 2. Moderate size hiatal hernia. Patient was instructed about eating small frequent meals and the keep the head of the bed elevated this point in time as he is not a surgical candidate. 3. Diabetes mellitus type 2. Continue patient on Glucotrol 2.5 mg orally 3 times every day, metformin 1000 g orally twice every day, continue Tradjenta 5 mg orally once every day. Place the patient on the sliding scale insulin, BGM before each meal and at bedtime. We will continue Treseba 15 units subcu venously once every day. 4. History of lung cancer status post partial resection. He currently is not on any regimented program, not requiring any chemo, and does not follow or need any follow-up with oncology according to the , last chest CT 06/26/2016 . 5. GERD and GI prophylaxis. Continue Protonix 40 mg orally once every day. 6. Hyperlipidemia. Continue Lipitor 40 mg at bedtime. 7. Hard of hearing. Patient has hearing aids in place. 8. Enlarged prostate. Stable. We will continue Flomax 0.4 mg orally once every day. 9. DVT prophylaxis. Lovenox 40 mg subcutaneously every 24 hours. Full code. Discharge plan: Return home Impression and plan of care have been directed as dictated by the signing physician. Renita Barger nurse practitioner acting as scribe for signing physician.
[2017-10-17] MEDS: LEVOFLOXACIN 500MG-D5W PMX 500 MG in DEXTROSE/WATER 1 100ML.BAG IVPB SCH (16:19)
[2017-10-17 16:38] LABS: Glucose,Whole Blood 125 mg/dL (75-99)
[2017-10-17 16:38] LABS: Glucose,Whole Blood 120 mg/dL (75-99)
[2017-10-17] MEDS: SODIUM CHLORIDE 0.9% 1,000 ML IV SCH (20:13)
[2017-10-17 20:26] LABS: Glucose,Whole Blood 98 mg/dL (75-99)
[2017-10-17] MEDS: ATORVASTATIN 20 MG TAB PO SCH (20:29)
[2017-10-17] MEDS: MIRTAZAPINE 15 MG TAB PO SCH (20:29)
[2017-10-18] MEDS: PIPERACILLIN-TAZOBACTAM 3.375 GM in DEXTROSE/WATER 1 50ML.BAG IVPB SCH ×3 (00:18→16:25)
[2017-10-18] MEDS: IPRATROPIUM 0.5 MG/2.5 ML NEBU INHALATION SCH ×3 (06:56→19:46)
[2017-10-18] MEDS: BUDESONIDE 0.5 MG/2 ML NEBU INHALATION SCH ×2 (06:57→19:46)
[2017-10-18 07:04] LABS: Glucose,Whole Blood 94 mg/dL (75-99)
[2017-10-18] MEDS: FERROUS SULFATE 325 MG TAB PO SCH (08:06)
[2017-10-18] MEDS: ASPIRIN 81 MG PO SCH (08:06)
[2017-10-18] MEDS: GABAPENTIN 100 MG CAP PO SCH ×2 (08:06→21:33)
[2017-10-18] MEDS: ENOXAPARIN 40 MG/0.4 ML SYRINGE SQ SCH (08:06)
[2017-10-18] MEDS: PANTOPRAZOLE 40 MG TABLET PO SCH (08:06)
[2017-10-18] MEDS: TAMSULOSIN 0.4 MG CAP.ER.24H PO SCH (08:06)
[2017-10-18] MEDS: LINAGLIPTIN 5 MG TABLET PO SCH (08:06)
[2017-10-18] MEDS: metFORMIN 500 MG TAB PO SCH ×2 (08:06→17:50)
[2017-10-18] MEDS: INSULIN DETEMIR 100 UNIT/ML 10 ML VIAL SQ SCH (08:07)
[2017-10-18 11:20] LABS: Glucose,Whole Blood 136 mg/dL (75-99)
[2017-10-18] MEDS: MULTIVITAMINS, THERA 1 EACH TAB PO SCH (11:50)
[2017-10-18] MEDS: LEVOFLOXACIN 500MG-D5W PMX 500 MG in DEXTROSE/WATER 1 100ML.BAG IVPB SCH (13:33)
--- NOTE | 2017-10-18 14:24 | P.PN ---
Subjective Progress Note Date: 10/18/17 This is an 87-year-old male one of my patient with a previous medical history significant for diabetes mellitus type 2, hyperkalemia, moderate COPD, lung cancer status post partial lobectomy, GERD, MRSA right lower lobe pneumonia with right pleural effusion in 2017, TIAs with left-sided location and no residual deficits, patient was recently hospitalized at [facility] last month for similar episode where he was diagnosed with right lower lobe pneumonia possibly aspiration and the patient came to my office in follow- up with me as an outpatient he was sent for a barium swallow that did not show any evidence of aspiration however it did show that the patient is putting his food and liquid in the back of his throat with increased risk of aspiration him a patient stated that he had the sloppy Nahun's yesterday he did not eat much and he went to bed and he woke up at around 12 midnight with vomiting and aspirating the vomitus and he sat up most of the night and he came into the ER in the morning at [facility] had a chest x-ray that showed worsening right lower lobe infiltrate and the patient was admitted to the hospital for evaluation and possible aspiration pneumonia. 10/17: Pulse ox is 94% on 2 L. Consult with speech therapy as he is followed as an outpatient. Repeat chest x-ray shows stable pleural intervention will changes. White count is normalized at 8.1. Hemoglobin is 10.9, BUN 19 and creatinine 0.94. He is continued on IV Levaquin and Zosyn. Sputum culture remains on collected. 10/18: Patient denies any new complaints and states he continues to feel improvement. Lung sounds are improving. He has been afebrile. Speech therapy is following with no signs of aspiration. Patient is on a regular diet with thin liquids. Plan to monitor patient overnight and discharge tomorrow. Objective - Vital Signs Vital signs: Vital Signs Temp 97.5 F L 10/18/17 05:55 Pulse 92 10/18/17 10:11 Resp 16 10/18/17 05:55 BP 103/57 10/18/17 05:55 Pulse Ox 92 L 10/18/17 05:55 Intake & Output 10/17/17 10/18/17 10/18/17 18:59 06:59 18:59 Intake Total 740 240 Output Total 400 Balance -400 740 240 Weight 70.171 kg Intake: Intake, IV Titration 260 Amount Piperacillin-Tazobactam 3 100 .375 gm In Dextrose/Water 1 50ml.bag @ 12.5 mls/hr IVPB Q8HR [facility] Rx#: [id number] Sodium Chloride 0.9% 1, 160 000 ml @ 20 mls/hr IV . Q24H [facility] Rx#:[id number] Oral 480 240 Output: Urine 400 Other: Voiding Method Toilet Urinal # Voids 2 - Exam General appearance: mild distress, thin - EENT Eyes: anicteric sclerae, EOMI, PERRLA, no ptosis, no scleral icterus, normal appearance ENT: hard of hearing, NA/AT, no normal oropharynx, no thrush Ears: bilateral: normal - Neck Neck: no lymphadenopathy, normal ROM, no rigidity, no stridor, no thyromegaly Carotids: bilateral: upstroke normal Thyroid: bilateral: normal size - Respiratory Respiratory: right: rales, rhonchi, bilateral: diminished, negative: dullness, prolonged expiration, prolonged inspiration - Cardiovascular Rhythm: regular Heart sounds: normal: S1, S2 Abnormal Heart Sounds: systolic murmur, no rub, no S3 Gallop, no click - Gastrointestinal General gastrointestinal: normal bowel sounds, soft, no splenomegaly, no tenderness, no umbilical hernia, no ventral hernia - Integumentary Integumentary: normal, normal turgor - Neurologic Neurologic: CNII-XII intact - Musculoskeletal Musculoskeletal: generalized weakness, strength equal bilaterally - Psychiatric Psychiatric: A&O x's 3, appropriate affect, intact judgment & insight - Labs CBC & Chem 7: 10/17/17 06:38 10/17/17 06:38 Labs: Abnormal Lab Results - Last 24 Hours (Table) 10/17/17 10/17/17 Range/Units 11:17 16:10 POC Glucose (mg/dL) 125 H 120 H (75-99) mg/dL Microbiology - Last 24 Hours (Table) 10/17/17 14:30 Gram Stain - Preliminary Sputum Sputum Culture - Preliminary 10/16/17 14:15 Blood Culture - Preliminary Blood No Growth after 24 hours Assessment and Plan Plan: 1. Aspiration pneumonia with possible gram-negative pneumonia. We will start Levaquin 500 mg IV piggyback every 24 hours as well as Zosyn 3.375 g IV piggyback every 6 hours, sputum culture, DuoNeb 3ml nebulization 4 times every day, also Pulmicort 0.5 mg nebulization twice every day, oxygen support, sputum culture, blood culture. Speech therapy evaluation. 2. Moderate size hiatal hernia. Patient was instructed about eating small frequent meals and the keep the head of the bed elevated this point in time as he is not a surgical candidate. 3. Diabetes mellitus type 2. Continue patient on Glucotrol 2.5 mg orally 3 times every day, metformin 1000 g orally twice every day, continue Tradjenta 5 mg orally once every day. Place the patient on the sliding scale insulin, BGM before each meal and at bedtime. We will continue Treseba 15 units subcu venously once every day. 4. History of lung cancer status post partial resection. He currently is not on any regimented program, not requiring any chemo, and does not follow or need any follow-up with oncology according to the , last chest CT 06/26/2016 . 5. GERD and GI prophylaxis. Continue Protonix 40 mg orally once every day. 6. Hyperlipidemia. Continue Lipitor 40 mg at bedtime. 7. Hard of hearing. Patient has hearing aids in place. 8. Enlarged prostate. Stable. We will continue Flomax 0.4 mg orally once every day. 9. DVT prophylaxis. Lovenox 40 mg subcutaneously every 24 hours. Full code. Discharge plan: Return home Impression and plan of care have been directed as dictated by the signing physician. Renita Barger nurse practitioner acting as scribe for signing physician.
[2017-10-18 16:12] LABS: Glucose,Whole Blood 93 mg/dL (75-99)
[2017-10-18] MEDS: SODIUM CHLORIDE 0.9% 1,000 ML IV SCH (19:23)
[2017-10-18 20:05] LABS: Glucose,Whole Blood 89 mg/dL (75-99)
[2017-10-18] MEDS: MIRTAZAPINE 15 MG TAB PO SCH (21:33)
[2017-10-18] MEDS: ATORVASTATIN 20 MG TAB PO SCH (21:33)
[2017-10-19] MEDS: PIPERACILLIN-TAZOBACTAM 3.375 GM in DEXTROSE/WATER 1 50ML.BAG IVPB SCH (00:47)
[2017-10-19 06:08] VITALS: BP 117/58; RESP 18; TEMP 97.9
[2017-10-19 06:51] LABS: Glucose,Whole Blood 80 mg/dL (75-99)
[2017-10-19] MEDS: BUDESONIDE 0.5 MG/2 ML NEBU INHALATION SCH (08:12)
[2017-10-19] MEDS: IPRATROPIUM 0.5 MG/2.5 ML NEBU INHALATION SCH ×2 (08:12→12:06)
[2017-10-19] MEDS: GABAPENTIN 100 MG CAP PO SCH (08:31)
[2017-10-19] MEDS: TAMSULOSIN 0.4 MG CAP.ER.24H PO SCH (08:31)
[2017-10-19] MEDS: ENOXAPARIN 40 MG/0.4 ML SYRINGE SQ SCH (08:32)
[2017-10-19] MEDS: ASPIRIN 81 MG PO SCH (08:32)
[2017-10-19] MEDS: FERROUS SULFATE 325 MG TAB PO SCH (08:32)
[2017-10-19] MEDS: LINAGLIPTIN 5 MG TABLET PO SCH (08:32)
[2017-10-19] MEDS: metFORMIN 500 MG TAB PO SCH (08:33)
[2017-10-19] MEDS: PANTOPRAZOLE 40 MG TABLET PO SCH (08:33)
[2017-10-19] MEDS ORDERED: LEVOFLOXACIN 500 MG TAB PO SCH (09:00)
[2017-10-19] MEDS: INSULIN DETEMIR 100 UNIT/ML 10 ML VIAL SQ SCH (09:18)
[2017-10-19 11:08] LABS: Glucose,Whole Blood 102 mg/dL (75-99)
--- NOTE | 2017-10-19 12:01 | P.DS ---
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, patient was recently hospitalized at [facility] last month for similar episode where he was diagnosed with right lower lobe pneumonia possibly aspiration and the patient came to my office in follow- up with me as an outpatient he was sent for a barium swallow that did not show any evidence of aspiration however it did show that the patient is putting his food and liquid in the back of his throat with increased risk of aspiration him a patient stated that he had the sloppy Nahun's yesterday he did not eat much and he went to bed and he woke up at around 12 midnight with vomiting and aspirating the vomitus and he sat up most of the night and he came into the ER in the morning at [facility] had a chest x-ray that showed worsening right lower lobe infiltrate and the patient was admitted to the hospital for evaluation and possible aspiration pneumonia. 10/17: Pulse ox is 94% on 2 L. Consult with speech therapy as he is followed as an outpatient. Repeat chest x-ray shows stable pleural intervention will changes. White count is normalized at 8.1. Hemoglobin is 10.9, BUN 19 and creatinine 0.94. He is continued on IV Levaquin and Zosyn. Sputum culture remains on collected. 10/18: Patient denies any new complaints and states he continues to feel improvement. Lung sounds are improving. He has been afebrile. Speech therapy is following with no signs of aspiration. Patient is on a regular diet with thin liquids. Plan to monitor patient overnight and discharge tomorrow. 10/19: Patient had one episode of diarrhea this morning. Plan to monitor through the morning and if patient is stable will discharge this afternoon. Patient has been afebrile. Pulse ox is 92-96% on room air. Blood blood glucose running between 89 and 136. Discharge diagnoses: 1. Aspiration pneumonia with possible gram-negative pneumonia. 2. Moderate size hiatal hernia. 3. Diabetes mellitus type 2. 4. History of lung cancer status post partial resection. 5. GERD 6. Hyperlipidemia. 7. Hard of hearing. 8. Enlarged prostate. Stable. Discharge plan: Return home Impression and plan of care have been directed as dictated by the signing physician. Renita Barger nurse practitioner acting as scribe for signing physician. Patient Condition at Discharge: Good Plan - Discharge Summary Discharge Rx Participant: No New Discharge Prescriptions: New Levofloxacin [Levaquin] 500 mg PO DAILY #7 tab Continue Omeprazole [PriLOSEC] 20 mg PO BID Mirtazapine [Remeron] 7.5 mg PO HS metFORMIN HCL 1,000 mg PO BID Saxagliptin HCl [Onglyza] 5 mg PO DAILY glipiZIDE [Glucotrol] 2.5 mg PO DAILY Budesonide [Pulmicort] 0.5 mg INHALATION RT-BID Atorvastatin [Lipitor] 20 mg PO HS Ipratropium Nebulized [Atrovent Nebulized] 0.5 mg INHALATION RT-TID Tamsulosin [Flomax] 0.4 mg PO DAILY Gabapentin [Neurontin] 100 mg PO BID Aspirin [Adult Low Dose Aspirin EC] 81 mg PO DAILY Ferrous Sulfate [Iron] 325 mg PO DAILY Multivitamins, Thera [Multivitamin (formulary)] 1 tab PO DAILY Insulin Degludec [Tresiba Flextouch U-100] 15 unit SQ DAILY Discharge Medication List Omeprazole [PriLOSEC] 20 mg PO BID 11/21/13 [History] Mirtazapine [Remeron] 7.5 mg PO HS 06/23/16 [History] Saxagliptin HCl [Onglyza] 5 mg PO DAILY 06/23/16 [History] metFORMIN HCL 1,000 mg PO BID 06/23/16 [History] Budesonide [Pulmicort] 0.5 mg INHALATION RT-BID 10/25/16 [History] glipiZIDE [Glucotrol] 2.5 mg PO DAILY 10/25/16 [History] Atorvastatin [Lipitor] 20 mg PO HS 09/13/17 [History] Gabapentin [Neurontin] 100 mg PO BID 09/13/17 [History] Ipratropium Nebulized [Atrovent Nebulized] 0.5 mg INHALATION RT-TID 09/13/17 [ History] Tamsulosin [Flomax] 0.4 mg PO DAILY 09/13/17 [History] Aspirin [Adult Low Dose Aspirin EC] 81 mg PO DAILY 10/16/17 [History] Ferrous Sulfate [Iron] 325 mg PO DAILY 10/16/17 [History] Insulin Degludec [Tresiba Flextouch U-100] 15 unit SQ DAILY 10/16/17 [History] Multivitamins, Thera [Multivitamin (formulary)] 1 tab PO DAILY 10/16/17 [History ] Levofloxacin [Levaquin] 500 mg PO DAILY #7 tab 10/19/17 [Rx] Follow up Appointment(s)/Referral(s): Jasmin Natarajan MD [Primary Care Provider] - 1 Week Patient Instructions/Handouts: Pneumonia (ED) Discharge Disposition: HOME SELF-CARE
[2017-10-19 12:07] VITALS: PULSE 92
== END 2017-10-19 12:55 | disposition home or self-care (01) | DRG 179 ==
LOC: EC 10:31 → 4MS4W 13:48 → 5MS5E 19:38
PROVIDERS: ADMIT Internal Medicine; ATTEND Internal Medicine
DX: J69.0 Pneumonitis due to inhalation of food and vomit (principal); J15.6 Pneumonia due to other Gram-negative bacteria; E11.41 Type 2 diabetes mellitus with diabetic mononeuropathy; J44.9 Chronic obstructive pulmonary disease, unspecified; R13.10 Dysphagia, unspecified; D50.9 Iron deficiency anemia, unspecified; K21.9 Gastro-esophageal reflux disease without esophagitis; N40.0 Benign prostatic hyperplasia without lower urinary tract symptoms; G57.93 Unspecified mononeuropathy of bilateral lower limbs; H91.90 Unspecified hearing loss, unspecified ear; E78.5 Hyperlipidemia, unspecified; M19.91 Primary osteoarthritis, unspecified site; K44.9 Diaphragmatic hernia without obstruction or gangrene; Z79.82 Long term (current) use of aspirin; Z79.4 Long term (current) use of insulin; Z79.51 Long term (current) use of inhaled steroids; Z79.899 Other long term (current) drug therapy; Z85.118 Personal history of other malignant neoplasm of bronchus and lung; Z86.73 Personal history of transient ischemic attack (TIA), and cerebral infarction without residual deficits; Z87.01 Personal history of pneumonia (recurrent); Z86.14 Personal history of Methicillin resistant Staphylococcus aureus infection; Z97.4 Presence of external hearing-aid; Z90.2 Acquired absence of lung [part of]; Z87.891 Personal history of nicotine dependence; Z86.010 Personal history of colon polyps; Z86.59 Personal history of other mental and behavioral disorders; Z81.1 Family history of alcohol abuse and dependence; Z82.49 Family history of ischemic heart disease and other diseases of the circulatory system; Z82.3 Family history of stroke; Z82.0 Family history of epilepsy and other diseases of the nervous system; Z80.42 Family history of malignant neoplasm of prostate
CPT/HCPCS: 36415; 70450; 71046; 74022; 80053; 81003; 83690; 84484; 85025; 85610; 85730; 87040; 87070; 87077; 87186; 87205; 93005; 94640; 96361; 96365; 96366; 96367; 99285

== ENCOUNTER 2018-09-27 11:56 | Emergency (ER) | payer MEDICARE, OTHER ==
[2018-09-27 12:04] VITALS: RESP 18
[2018-09-27] MEDS ORDERED: SODIUM CHLORIDE 0.9% 1,000 ML IV STA (13:43)
[2018-09-27] MEDS ORDERED: SODIUM CHLORIDE 0.9% 500 ML 500 ML IV STA (13:43)
[2018-09-27] MEDS ORDERED: MECLIZINE 12.5 MG TAB PO STA (13:43)
[2018-09-27 14:10] LABS: WBC 6.4 k/uL (3.8-10.6)
[2018-09-27 14:11] LABS: Basophils % (A) 0 %; Eosinophils # (A) 0.2 k/uL (0-0.7); Eosinophils % (A) 3 %; HCT 36.9 % (39.0-53.0); HGB 11.7 gm/dL (13.0-17.5); Hypochromasia Slight; Lymphocytes # (A) 0.7 k/uL (1.0-4.8); Lymphocytes % (A) 12 %; MCH 27.8 pg (25.0-35.0); MCHC 31.6 g/dL (31.0-37.0); Mean Platelet Volume 9.5; Monocytes # (A) 0.3 k/uL (0-1.0); Monocytes % (A) 5 %; Neutrophils % (A) 79 %; Platelet Count 167 k/uL (150-450); RDW 15.7 % (11.5-15.5)
--- NOTE | 2018-09-27 14:19 | ED ---
Dizziness HPI - General Chief Complaint: Dizziness Stated Complaint: dizzy Time Seen by Provider: 09/27/18 12:12 Source: patient, RN notes reviewed Mode of arrival: ambulatory Limitations: no limitations - History of Present Illness Initial Comments: This is a 88-year-old male with a history of a TIA in the past/mini stroke who states that he woke up yesterday morning with dizziness. He states he only gets dizzy when he gets up from a lying position nothing with head turning or eye movement. No focal weakness is upper or lower extremities no headaches no recent trauma no recent illnesses other than he does have a runny nose he states secondary to ALLERGIES. No other modifying factors sign of fevers chills nausea vomiting sweats. MD Complaint: dizziness - Related Data Home Medications Medication Instructions Recorded Confirmed Omeprazole [PriLOSEC] 20 mg PO BID 11/21/13 09/27/18 Atorvastatin [Lipitor] 40 mg PO HS 09/13/17 09/27/18 Gabapentin [Neurontin] 100 mg PO HS 09/13/17 09/27/18 Tamsulosin [Flomax] 0.4 mg PO DAILY 09/13/17 09/27/18 Aspirin [Adult Low Dose Aspirin EC] 81 mg PO HS 10/16/17 09/27/18 Ferrous Sulfate [Iron] 325 mg PO BID 10/16/17 09/27/18 Carvedilol [Coreg] 3.125 mg PO BID 09/27/18 09/27/18 Docusate [Colace] 100 mg PO HS 09/27/18 09/27/18 Insulin Glargine,Hum.rec.anlog See Protocol SQ DAILY PRN 09/27/18 09/27/18 [Lantus Solostar] Lisinopril [Zestril] 2.5 mg PO DAILY 09/27/18 09/27/18 Multivit-Min/Folic/Vit K/Lycop 1 tab PO DAILY 09/27/18 09/27/18 [Men's Multivitamin Tablet] Previous Rx's Medication Instructions Recorded Meclizine [Antivert] 25 mg PO TID #20 tab 09/27/18 Allergies Allergy/AdvReac Type Severity Reaction Status Date / Time No Known Allergies Allergy Verified 09/27/18 12:30 Review of Systems ROS Statement: Those systems with pertinent positive or pertinent negative responses have been documented in the HPI. ROS Other: All systems not noted in ROS Statement are negative. 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, dysphagia with EGD/dilation and now swallow is slightly improv ed, hiatal hernia, iron deficiency anemia, bilateral [place] with aides, recently started using insulin History of Any Multi-Drug Resistant Organisms: MRSA Date of last positivie culture/infection: 10/17/17 MDRO Source:: sputum Past Surgical History: Hernia Repair, Orthopedic Surgery, Tonsillectomy Additional Past Surgical History / Comment(s): 03/31/2009 left lung resection with post op incisional infection and had debridements, EGD with dilation, colonoscopy/benign polypectomy, hemmoroidectomy, right shoulder (rotator cuff/bone spurs), cataracts Past Anesthesia/Blood Transfusion Reactions: No Reported Reaction Past Psychological History: Depression Smoking Status: Former smoker Past Alcohol Use History: Rare Past Drug Use History: None Reported - Past Family History Father Family Medical History: No Reported History Additional Family Medical History / Comment(s): Father at the age of 74yrs. He was an alcoholic. Mother Family Medical History: CVA/TIA Additional Family Medical History / Comment(s): Mother at the age of 80yrs. Sister(s) Family Medical History: Coronary Artery Disease (CAD), Myocardial Infarction (MS) Brother(s) Family Medical History: Neurologic Disorder Daughter(s) Family Medical History: No Reported History Son(s) Family Medical History: Cancer Additional Family Medical History / Comment(s): PROSTATE CANCER General Exam - General Exam Comments Initial Comments: This is a well-developed well-nourished awake alert oriented times 3 male Limitations: no limitations General appearance: alert, in no apparent distress Head exam: Present: atraumatic, normocephalic, normal inspection Eye exam: Present: normal appearance, PERRL, EOMI. Absent: scleral icterus, conjunctival injection, periorbital swelling ENT exam: Present: normal exam, mucous membranes moist Neck exam: Present: normal inspection, full ROM, other (No stridor JVD or bruits). Absent: tenderness, meningismus, lymphadenopathy Respiratory exam: Present: normal lung sounds bilaterally. Absent: respiratory distress, wheezes, rales, rhonchi, stridor Cardiovascular Exam: Present: regular rate, normal rhythm, normal heart sounds, other (Pulses are equal bilaterally radial and dorsalis pedis.). Absent: systolic murmur, diastolic murmur, rubs, gallop, clicks GI/Abdominal exam: Present: soft, normal bowel sounds. Absent: distended, tenderness, guarding, rebound, rigid, bruit, pulsatile mass Extremities exam: Present: normal inspection, full ROM, normal capillary refill. Absent: tenderness, pedal edema, joint swelling, calf tenderness Back exam: Present: normal inspection Neurological exam: Present: alert, oriented X3, CN II-XII intact Psychiatric exam: Present: normal affect, normal mood Skin exam: Present: warm, dry, intact, normal color. Absent: rash Course Vital Signs 09/27/18 09/27/18 09/27/18 11:59 14:30 14:31 Temperature 97.6 F Pulse Rate 66 63 Pulse Rate [ 67 Left Sitting Cook Seafood ] Pulse Rate [ 70 Left Standing Cook Seafood ] Pulse Rate [ 58 L Left Supine Cook Seafood ] Respiratory 18 18 Rate Blood Pressure 158/71 177/80 Blood Pressure 125/66 [Left Arm Sitting] Blood Pressure 144/75 [Left Arm Standing] Blood Pressure 166/73 [Left Arm Supine] O2 Sat by Pulse 98 99 Oximetry 09/27/18 15:30 Temperature Pulse Rate 55 L Pulse Rate [ Left Sitting Cook Seafood ] Pulse Rate [ Left Standing Cook Seafood ] Pulse Rate [ Left Supine Cook Seafood ] Respiratory 18 Rate Blood Pressure 156/68 Blood Pressure [Left Arm Sitting] Blood Pressure [Left Arm Standing] Blood Pressure [Left Arm Supine] O2 Sat by Pulse 99 Oximetry EKG Findings - EKG Results: EKG: interpreted by SARAH, sinus rhythm (Normal sinus rhythm a 64. Interval 178 QRS duration 90 QT since QTC 444/458 this is a normal-appearing EKG.) Medical Decision Making - Medical Decision Making Patient is improved after IV fluids he does ambulate without difficulty at this time. We a long discussion regarding fluid intake and food intake. He is not been eating and drinking quite as much recently he is encouraged to do this. He'll be discharged the presentation consistent with dehydration and orthostatic manifestations of this as well as a component of vertigo. - Lab Data Result diagrams: 09/27/18 12:18 09/27/18 12:18 Lab Results 09/27/18 09/27/18 09/27/18 Range/Units 12:18 12:18 12:18 WBC 6.4 (3.8-10.6) k/uL RBC 4.20 L (4.30-5.90) m/uL Hgb 11.7 L (13.0-17.5) gm/dL Hct 36.9 L (39.0-53.0) % MCV 88.0 (80.0-100.0) fL MCH 27.8 (25.0-35.0) pg MCHC 31.6 (31.0-37.0) g/dL RDW 15.7 H (11.5-15.5) % Plt Count 167 (150-450) k/uL Neutrophils % 79 % Lymphocytes % 12 % Monocytes % 5 % Eosinophils % 3 % Basophils % 0 % Neutrophils # 5.0 (1.3-7.7) k/uL Lymphocytes # 0.7 L (1.0-4.8) k/uL Monocytes # 0.3 (0-1.0) k/uL Eosinophils # 0.2 (0-0.7) k/uL Basophils # 0.0 (0-0.2) k/uL Hypochromasia Slight Sodium 139 (137-145) mmol/L Potassium 4.8 (3.5-5.1) mmol/L Chloride 102 (98-107) mmol/L Carbon Dioxide 29 (22-30) mmol/L Anion Gap 8 mmol/L BUN 18 (9-20) mg/dL Creatinine 0.77 (0.66-1.25) mg/dL Est GFR (CKD-EPI)AfAm >90 (>60 ml/min/1.73 sqM) Est GFR (CKD-EPI)NonAf 82 (>60 ml/min/1.73 sqM) Glucose 282 H (74-99) mg/dL Calcium 9.2 (8.4-10.2) mg/dL Total Bilirubin 0.2 (0.2-1.3) mg/dL AST 28 (17-59) U/L ALT 48 (21-72) U/L Alkaline Phosphatase 102 (38-126) U/L Troponin I <0.012 (0.000-0.034) ng/mL Total Protein 6.7 (6.3-8.2) g/dL Albumin 3.4 L (3.5-5.0) g/dL Urine Color Urine Appearance (Clear) Urine pH (5.0-8.0) Ur Specific Hydro (1.001-1.035) Urine Protein (Negative) Urine Glucose (UA) (Negative) Urine Ketones (Negative) Urine Blood (Negative) Urine Nitrite (Negative) Urine Bilirubin (Negative) Urine Urobilinogen (<2.0) mg/dL Ur Leukocyte Esterase (Negative) 09/27/18 Range/Units 15:35 WBC (3.8-10.6) k/uL RBC (4.30-5.90) m/uL Hgb (13.0-17.5) gm/dL Hct (39.0-53.0) % MCV (80.0-100.0) fL MCH (25.0-35.0) pg MCHC (31.0-37.0) g/dL RDW (11.5-15.5) % Plt Count (150-450) k/uL Neutrophils % % Lymphocytes % % Monocytes % % Eosinophils % % Basophils % % Neutrophils # (1.3-7.7) k/uL Lymphocytes # (1.0-4.8) k/uL Monocytes # (0-1.0) k/uL Eosinophils # (0-0.7) k/uL Basophils # (0-0.2) k/uL Hypochromasia Sodium (137-145) mmol/L Potassium (3.5-5.1) mmol/L Chloride (98-107) mmol/L Carbon Dioxide (22-30) mmol/L Anion Gap mmol/L BUN (9-20) mg/dL Creatinine (0.66-1.25) mg/dL Est GFR (CKD-EPI)AfAm (>60 ml/min/1.73 sqM) Est GFR (CKD-EPI)NonAf (>60 ml/min/1.73 sqM) Glucose (74-99) mg/dL Calcium (8.4-10.2) mg/dL Total Bilirubin (0.2-1.3) mg/dL AST (17-59) U/L ALT (21-72) U/L Alkaline Phosphatase (38-126) U/L Troponin I (0.000-0.034) ng/mL Total Protein (6.3-8.2) g/dL Albumin (3.5-5.0) g/dL Urine Color Light Yellow Urine Appearance Clear (Clear) Urine pH 7.0 (5.0-8.0) Ur Specific Hydro 1.003 (1.001-1.035) Urine Protein Negative (Negative) Urine Glucose (UA) 2+ H (Negative) Urine Ketones Negative (Negative) Urine Blood Negative (Negative) Urine Nitrite Negative (Negative) Urine Bilirubin Negative (Negative) Urine Urobilinogen <2.0 (<2.0) mg/dL Ur Leukocyte Esterase Negative (Negative) - Radiology Data Radiology results: report reviewed (I did review the imaging and report no evidence of acute findings or obstructions.), image reviewed Disposition Clinical Impression: Orthostatic hypotension, Dehydration, Benign paroxysmal positional vertigo Disposition: HOME SELF-CARE Condition: Good Instructions (If sedation given, give patient instructions): Dizziness (ED), Dehydration (ED), Benign Paroxysmal Positional Vertigo (ED) Prescriptions: Meclizine [Antivert] 25 mg PO TID #20 tab Is patient prescribed a controlled substance at d/c from ED?: No Referrals: Jasmin Natarajan MD [Primary Care Provider] - 1-2 days
[2018-09-27 14:24] LABS: ALT 48 U/L (21-72); AST 28 U/L (17-59); African American GFR (CKD) >90 (>60 ml/min/1.73 sqM); Albumin 3.4 g/dL (3.5-5.0); Alkaline Phosphatase 102 U/L (38-126); Anion Gap 8 mmol/L; Blood Urea Nitrogen 18 mg/dL (9-20); Calcium 9.2 mg/dL (8.4-10.2); Carbon Dioxide 29 mmol/L (22-30); Chloride 102 mmol/L (98-107); Glucose 282 mg/dL (74-99); Potassium 4.8 mmol/L (3.5-5.1); Sodium 139 mmol/L (137-145); Total Bilirubin 0.2 mg/dL (0.2-1.3); Total Protein 6.7 g/dL (6.3-8.2)
--- NOTE | 2018-09-27 14:35 | XR ---
EXAMINATION TYPE: XR chest 2V DATE OF EXAM: 09/27/2018 COMPARISON: Prior chest x-ray 10/17/2017, CT 06/26/2016 HISTORY: Cough, history of lung carcinoma, COPD and asthma TECHNIQUE: Frontal and lateral views of the chest are obtained. FINDINGS: There is hyperinflation present. There is blunting the costophrenic angle on the right, st rand-like densities are again noted at the right lung base, there is biapical pleural thickening. The heart is small. Aorta is dense. Metallic density present over the left midlung laterally, 2 punctate metallic densities within the soft tissues of the chest laterally, postop changes are noted in the l eft hilum. There are overlying artifacts. Metallic densities present in the upper abdomen are indeter minate, metallic density also present at the right lung base, there are calcified pleural plaques. Co rrelate for gastric pull-through procedure. IMPRESSION: Difficult to exclude basilar atelectasis versus pneumonia, effusion, findings could be c hronic postoperative change.
--- NOTE | 2018-09-27 15:20 | CT ---
EXAMINATION TYPE: CT brain wo con DATE OF EXAM: 09/27/2018 COMPARISON: CT brain 10/16/2017 HISTORY: Dizziness. CT DLP: 1131.9 mGycm Automated exposure control for dose reduction was used. Helical imaging through the brain. FINDINGS: There is cortical atrophy. Cerebral vascular calcifications are present. 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 Periventricular white matter shows patchy low attenuatio n. There is no hemorrhage or hydrocephalus. Calvarium is intact. Paranasal sinuses and mastoid air ce lls as visualized are normal. IMPRESSION: STABLE EXAM. NO ACUTE ABNORMALITY.
--- NOTE | 2018-09-27 15:48 | CT ---
EXAMINATION TYPE: CT angio head neck DATE OF EXAM: 09/27/2018 HISTORY: Dizziness. COMPARISON: CT DLP: 387.3 mGycm. Automated Exposure Control for Dose Reduction was Utilized. TECHNIQUE: CTA scan of the neck is performed with IV Contrast, patient injected with 50 mL of Isovue 370, axial images are obtained, coronal and sagittal reformatted images are reviewed. Three-D recons tructed images are created on an independent workstation and reviewed. FINDINGS: Carotid/Vascular Structures: The transverse aorta shows extensive atheromatous change. 3 super aortic branch vessels are present. The innominate, left and right common carotid, left and right subclavian arteries, left and right vertebral arteries are patent, vertebral arteries are codominant. There is no evident embolus, dissection, or aneurysm. The [place] is patent, anterior posterior circulation is patent. There is no evident aneurys m, embolus, or dissection in the region of the [place]. Other: Emphysematous changes are present at the lung apices, there are some interstitial changes. Api ck pleural scarring is noted. Degenerative disc changes are present in the visualized cervical spine . IMPRESSION: No significant abnormality is seen.
[2018-09-27 15:49] LABS: Appearance,Urine Clear (Clear); Bilirubin,Urine Negative (Negative); Blood,Urine Negative (Negative); Color,Urine Light Yellow; Glucose,Urine (UA) 2+ (Negative); Ketones,Urine Negative (Negative); Leukocyte Esterase,Urine Negative (Negative); Nitrite,Urine Negative (Negative); Protein,Urine Negative (Negative); Specific Gravity,Urine 1.003 (1.001-1.035); Urobilinogen,Urine <2.0 mg/dL (<2.0)
[2018-09-27 16:52] VITALS: BP 139/94; PULSE 58; TEMP 98
== END 2018-09-27 16:52 | disposition home or self-care (01) ==
LOC: EC 11:56
DX: H81.10 Benign paroxysmal vertigo, unspecified ear (principal); E86.0 Dehydration; I95.1 Orthostatic hypotension; Z91.09 Other allergy status, other than to drugs and biological substances; E11.42 Type 2 diabetes mellitus with diabetic polyneuropathy; H91.93 Unspecified hearing loss, bilateral; E78.5 Hyperlipidemia, unspecified; M19.90 Unspecified osteoarthritis, unspecified site; D50.9 Iron deficiency anemia, unspecified; Z87.891 Personal history of nicotine dependence; Z79.4 Long term (current) use of insulin; Z79.82 Long term (current) use of aspirin; Z79.899 Other long term (current) drug therapy; Z86.73 Personal history of transient ischemic attack (TIA), and cerebral infarction without residual deficits; Z97.4 Presence of external hearing-aid; Z85.118 Personal history of other malignant neoplasm of bronchus and lung; Z86.14 Personal history of Methicillin resistant Staphylococcus aureus infection; Z90.2 Acquired absence of lung [part of]
CPT/HCPCS: 36415; 93005; 80053; 84484; 85025; 81003; 71046; 70496; 70450; 70498; 99284; 96360; 96361 ×2; Q9967

== ENCOUNTER → 2018-11-11 | Outpatient (CLI) | payer MEDICARE, OTHER ==
--- NOTE | 2018-11-11 16:11 | NM ---
EXAMINATION TYPE: NM gastric emptying static DATE OF EXAM: 11/11/2018 COMPARISON: NONE HISTORY: T 18.12, retained gastric food Following administration of 1.9 mCi Tc 99m Sulfur Colloid with egg whites, one piece of toast with bu tter and jelly, 4 oz. of water, projection images of the abdomen were obtained 8 minutes post ingesti on. Patient Emptying Values 1 Hour 16 % 2 Hours 16 % 3 Hours 17 % 4 Hours 22 % Gastroesophagel reflux: None IMPRESSION: Gastric emptying: abnormal Gastroesophageal reflux: None Gastric emptying normal percentage values: 30 minutes: <70% of retention (> 30% emptying) suggests abnormally fast emptying. 60 minutes: <90% retention (>10% emptying) is normal; less than 30% retention (>70% emptying) suggest s abnormally rapid emptying. 90 minutes: <65% retention (> 35% emptying) is normal. 120 minutes: <60% retention (> 40% emptying) is normal. 180 minutes: <30% retention (> 70% emptying) is normal. Gastric emptying T-1/2: Solid: The normal range is 60-105 minutes Liquid only: Normal range is 10-45 minutes. Liquid only-children: At 60 minutes, normal range is 44-58 % . Liquid only-infants: At 60 minutes, normal range is 32-64 %. Additional references: Gastric Emptying Scintigraphy [email or web address]://[email or web address]
== END | disposition home or self-care (01) ==
LOC: RADNMMAIN 06:51
PROVIDERS: ATTEND Student in an Organized Health Care Education/Training Program
DX: T18.128A Food in esophagus causing other injury, initial encounter (principal)
CPT/HCPCS: 78264

== ENCOUNTER → 2018-11-14 | Outpatient (CLI) | payer MEDICARE, OTHER ==
--- NOTE | 2018-11-14 14:33 | XR ---
EXAMINATION TYPE: XR chest 2V DATE OF EXAM: 11/14/2018 COMPARISON: Prior chest x-ray 09/27/2018 HISTORY: Cough TECHNIQUE: Frontal and lateral views of the chest are obtained. FINDINGS: Pleural parenchymal changes are similar to prior exam, prominence of interstitium noted on the right. There is scarring with blunting of the costophrenic angle on the right, apical pleural th ickening is present bilaterally. There is postop change to the left hilum showing a stable appearance , metallic focal punctate density present superimposed over the anterior left third rib laterally is unchanged and is compatible with foreign body. Nodularity the right midlung is stable. Heart is small . Asymmetric attenuation noted within the lungs may be due to underlying emphysema. IMPRESSION: Stable findings. Chronic lung and pleural abnormalities including emphysema, interstitia l lung disease and scarring.
== END | disposition home or self-care (01) ==
LOC: RADXRMAIN 11:22
PROVIDERS: ATTEND Internal Medicine
DX: J43.9 Emphysema, unspecified (principal); J84.9 Interstitial pulmonary disease, unspecified; J98.4 Other disorders of lung; J94.8 Other specified pleural conditions
CPT/HCPCS: 71046

== ENCOUNTER → 2019-07-15 | Outpatient (CLI) | payer MEDICARE, OTHER ==
[2019-07-15 09:17] LABS: Basophils % (A) 1 %; Eosinophils # (A) 0.7 k/uL (0-0.7); Eosinophils % (A) 10 %; HCT 38.4 % (39.0-53.0); HGB 12.3 gm/dL (13.0-17.5); Lymphocytes % (A) 15 %; MCH 30.2 pg (25.0-35.0); MCHC 31.9 g/dL (31.0-37.0); MCV 94.5 fL (80.0-100.0); Mean Platelet Volume 10.8; Monocytes # (A) 0.5 k/uL (0-1.0); Monocytes % (A) 7 %; Neutrophils # (A) 4.3 k/uL (1.3-7.7); Neutrophils % (A) 65 %; Platelet Count 131 k/uL (150-450); RBC 4.06 m/uL (4.30-5.90); RDW 13.6 % (11.5-15.5); WBC 6.6 k/uL (3.8-10.6)
[2019-07-15 11:43] LABS: Large Platelets Present
[2019-07-15 16:18] LABS: % Iron Saturation 28.14 (15.00-50.00); African American GFR (CKD) 77.5 (60.0-200.0); Albumin 3.7 g/dL (3.80-4.90); Albumin/Globulin Ratio 1.54 (1.60-3.17); Anion Gap 10.6 mmol/L (4.00-12.00); Calcium 9.3 mg/dL (8.7-10.3); Carbon Dioxide 28.4 mmol/L (21.6-31.8); Chol/HDL Ratio 2.58; Globulin 2.4 g/dL (1.6-3.3); LDL Cholesterol,Calculated 66.2 mg/dL (0.0-131.0); Non-African American GFR(CKD) 66.9 (60.0-200.0); Potassium 4.7 mmol/L (3.5-5.5); Total Bilirubin 0.3 mg/dL (0.3-1.2); Total Protein 6.1 g/dL (6.2-8.2); VLDL Calculation 12.8 mg/dL (5.00-40.00)
[2019-07-15 16:25] LABS: Ferritin 192.1 ng/mL (22.0-322.0)
[2019-07-15 17:48] LABS: Hemoglobin A1C 7.8 % (4.0-6.0)
== END | disposition home or self-care (01) ==
LOC: LABWHC1 08:13
PROVIDERS: ATTEND Internal Medicine
DX: D50.0 Iron deficiency anemia secondary to blood loss (chronic) (principal); E78.2 Mixed hyperlipidemia; E08.43 Diabetes mellitus due to underlying condition with diabetic autonomic (poly)neuropathy
CPT/HCPCS: 36415; 80053; 80061; 82728; 83036; 83540; 83550; 85025

== ENCOUNTER → 2019-12-19 | Outpatient (CLI) | payer MEDICARE, OTHER ==
--- NOTE | 2019-12-24 14:36 | P.ARTDOP ---
Arterial Doppler LOWER EXTREMITY ARTERIAL DOPPLER: DATE OF SERVICE: 12/19/2019 Reason for study: Cold feet. Doppler waveforms: Multiphasic bilaterally throughout. Pulse volume recording: Pressure gradients: Above the low thigh on the left and below the knee on the right. Ankle-brachial indices: 0.95 on the right and 0.63 on the left. Toe brachial indices: 0.43 on the right, 0.42 on the left Impression: Mild right SFA disease. Moderate left fem-pop disease. Cannot exclude iliac component..
== END | disposition home or self-care (01) ==
LOC: RADUSWWP 12:57
PROVIDERS: ATTEND Internal Medicine
DX: I77.89 Other specified disorders of arteries and arterioles (principal); I73.9 Peripheral vascular disease, unspecified
CPT/HCPCS: 93923

== ENCOUNTER → 2020-10-14 | Outpatient (CLI) | payer MEDICARE ==
--- NOTE | 2020-10-14 12:00 | ECHOF ---
Referral Reason:I35.0 Nonrheumatic aortic (valve) stenosis MEASUREMENTS -------- HEIGHT: 175.3 cm WEIGHT: 68.0 kg BP: RVIDd: 2.1 cm (< 3.3) IVSd: 1.3 cm (0.6 - 1.1) LVIDd: 2.5 cm (3.9 - 5.3) LVPWd: 1.5 cm (0.6 - 1.1) IVSs: 1.9 cm LVIDs: 1.8 cm LVPWs: 1.9 cm LAESV Index (A-L): 27.63 ml/m Ao Diam: 3.2 cm (2.0 - 3.7) AV Cusp: 1.0 cm (1.5 - 2.6) LA Diam: 3.2 cm (2.7 - 3.8) MV EXCURSION: 15.618 mm (> 18.000) MV EF SLOPE: 107 mm/s (70 - 150) EPSS: 0.6 cm MV E Ranjith: 0.96 m/s MV DecT: 321 ms MV A Ranjith: 0.91 m/s MV E/A Ratio: 1.05 AV maxP.58 mmHg AV meanP.23 mmHg RAP: 5.00 mmHg RVSP: 37.16 mmHg FINDINGS -------- This was a technically good study. The left ventricular size is normal. There is moderate concentric left ventricular hypertrophy. O verall left ventricular systolic function is normal with, an EF between 55 - 60 %. The diastolic fi lling pattern is normal for the age of the patient 13.36. The right ventricle is normal in size. The left atrial size is normal. The right atrial size is normal. Aortic valve is trileaflet and is moderately thickened. There is moderate aortic stenosis present. Peak/mean gradient across the Aortic Valve is 31.58mmHg / 15.23mmHg. The mitral valve is normal. The mitral valve leaflets are mildly thickened. Mild mitral regurgita tion is present. The tricuspid valve appears structurally normal. Mild tricuspid regurgitation present. There is m ild pulmonary hypertension. The right ventricular systolic pressure, as measured by Doppler, is 37. 16mmHg. Trace/mild (physiologic) pulmonic regurgitation. The aortic root size is normal. Normal inferior vena cava with normal inspiratory collapse consistent with estimated right atrial pre ssure of 5 mmHg. There is no pericardial effusion. CONCLUSIONS -------- 1. The left ventricular size is normal. 2. There is moderate concentric left ventricular hypertrophy. 3. Overall left ventricular systolic function is normal with, an EF between 55 - 60 %. 4. The diastolic filling pattern is normal for the age of the patient 13.36 5. Aortic valve is trileaflet and is moderately thickened. 6. There is moderate aortic stenosis present. 7. Peak/mean gradient across the Aortic Valve is 31.58mmHg / 15.23mmHg. 8. The mitral valve leaflets are mildly thickened. 9. Mild mitral regurgitation is present. 10. Mild tricuspid regurgitation present. 11. There is mild pulmonary hypertension. 12. The right ventricular systolic pressure, as measured by Doppler, is 37.16mmHg. 13. Trace/mild (physiologic) pulmonic regurgitation. 14. There is no pericardial effusion. ASSISTANT STORE MANAGER TRAINEE: Nicol Blair RDCS
== END | disposition home or self-care (01) ==
LOC: RADECHMAIN 11:26
PROVIDERS: ATTEND Internal Medicine
DX: I08.3 Combined rheumatic disorders of mitral, aortic and tricuspid valves (principal); I27.20 Pulmonary hypertension, unspecified; I35.0 Nonrheumatic aortic (valve) stenosis
CPT/HCPCS: 93306